=== PATIENT | female | born 1960 | race Caucasian/White ===

== ENCOUNTER 2023-08-09 15:46 | Outpatient (AMB) | payer OTHER, SELFPAY ==
--- NOTE | 2023-08-09 15:54 | MHC.PC.OV ---
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 Will order labs. Due for mammo, will order. 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 Refuses colonoscopy, will order cologuard. Due for bone density, will order. Pt has not seen a medical provider in 6-10 years. Pt has been a PPD smoker since age 17, will refer for low-dose lung CTs. starting HCTZ and losartan for her HTN. She will take her BP at home, write down values, and drop them off in the near future. I will also follow up with her in the future. [facility] Social History Housing: Apartment Patient Tobacco Use Status: Current everyday Tobacco user Cigarette Packs Per Day: 1 e-Cigarette/Vaping Use: Never Used Second Hand Smoke Exposure: Yes service: No Current occupational status: retired Cognitive needs: No Hearing needs: No Vision needs: No Questionnaire PHQ-9 Over the last 2 weeks, how often have you been bothered by any of the following problems? 1. Little interest or pleasure in doing things: not at all 2. Feeling down, depressed, or hopeless: not at all 3. Trouble falling or staying asleep, or sleeping too much: not at all 4. Feeling tired or having little energy: not at all 5. Poor appetite or overeating: not at all 6. Feeling bad about yourself - or that you are a failure or have let yourself or your family down: not at all 7. Trouble concentrating on things, such as reading the newspaper or watching television: not at all 8. Moving or speaking so slowly that other people could have noticed. Or the opposite - being so fidgety or restless that you have been moving around a lot more than usual: not at all 9. Thoughts that you would be better off or of hurting yourself in some way: not at all Total score: 0 Depression Screening Interpretation: Negative 26454 - PHQ-9 Billing: Yes Source: Developed by Drs. Jonathan Cordoba, Vicky Chaves, Denzel Thibodeaux and colleagues, with an educational bobbi from [employer]. Thrive Questionnaire Date Thrive assessed: 08/09/23 I am a: Patient What is your living situation today?: I have a steady place to live Within the past 12 months, did the food you bought not last and you didn't have the money to get more?: Never true Within the past 12 months, did you worry whether your food would run out before you got money to buy more?: Never true Do you have trouble paying for medicines?: No Do you have trouble getting transportation to medical appointments?: No Do you have trouble paying your heating and electricity bill?: No Do you have trouble taking care of your child, family member or friend?: No Do you have trouble with day-to-day activities such as bathing, preparing meals, shopping, managing finances, etc.?: No Are you currently unemployed and looking for a job?: No Are you interested in more education?: No Currently or been in a relationship where the following occur: no concerns reported AUDIT C Alcohol Use Questionnaire (AUDIT-C) 1. How often do you have a drink containing alcohol?: Monthly or less 2. How many drinks containing alcohol do you have on a typical day when you are drinking?: 1 or 2 3. How often do you have six or more drinks on one occasion?: Never Total Score: 1 Score Reviewed/Action Taken: Yes LINETTE-7 AMB Questionnaire LINETTE-7 Date LINETTE - 7 assessed: 08/09/23 Feeling nervous, anxious, or on edge: 0 = Not at all Not being able to stop or control worryin = Not at all Worrying too much about different things: 0 = Not at all Trouble relaxin = Not at all Being so restless that it is hard to sit still: 0 = Not at all Becoming easily annoyed or irritable: 0 = Not at all Feeling afraid as if something awful might happen: 0 = Not at all Total LINETTE-7 score (0-4 normal; 5-9 mild; 10-14 moderate; 15-21 severe): 0 Source: Developed by Drs. Jonathan Cordoba, Vicky Chaves, Denzel Thibodeaux and colleagues, with an educational bobbi from [employer]. LINETTE-7 Assessment Billing LINETTE-7 Assessment Tool: LINETTE-7 Assessment 39765 Review of Systems Const Denies chills and Denies fever(s) Eyes Denies blurry vision ENT Denies vertigo, Denies dizziness and Denies sore throat Card Denies chest pain at rest, Denies chest pain with activity, Denies diaphoresis, Denies dyspnea and Denies dyspnea on exertion Resp Denies cough, Denies dyspnea, Denies dyspnea on exertion and Denies wheezing GI Denies abdominal pain, Denies melena, Denies hematochezia, Denies constipation, Denies diarrhea and Denies loose stools Denies hematuria Musc Denies numbness and Denies tingling Skin/Breast Denies lesions Neuro Denies vertigo, Denies dizziness, Denies numbness and Denies tingling Psych Denies anxiety, Denies depression, Denies homicidal ideation, Denies suicidal ideation and Denies other (substance abuse) Aller/Immun Denies wheezing Physical exam (Primary Care) Vital Signs: Last Vital Signs Pulse 81 08/09/23 15:55 BP 160/100 H 08/09/23 15:55 Pulse Ox 95 08/09/23 15:55 Oxygen Delivery Method Room Air 08/09/23 15:55 BMI result Body Mass Index 26.2 Tobacco/Smoking Status: Tobacco use Status Tobacco use date assessed 08/09/23 08/09/23 15:58 Patient Tobacco Use Status Current everyday Tobacco 08/09/23 15:58 e-Cigarette/Vaping Use Never Used 08/09/23 15:58 PHQ-9: PHQ-9 Score PHQ-9: Total score 0 08/09/23 16:32 Depression Screening Interpretation: Negative Thrive Assessment: Date of Thrive Assessment Date Thrive assessed 08/09/23 08/09/23 16:32 Currently or been in a relationship where the following occur: no concerns reported Const General: cooperative Nutritional Appearance: well nourished Orientation/consciousness: patient oriented x3 HENMT Head: Yes normal to inspection, Yes normocephalic and Yes atraumatic Ears: TM's normal bilaterally Eyes General: appearance normal, both eyes and all related structures Alignment and Position: alignment normal and position normal Neck Neck: Yes normal visual inspection and Yes no lymphadenopathy Thyroid: Thyroid normal Resp Other: dim though moving air bilat Effort & Inspection: normal respiratory effort Cardio Rate: regular rate Rhythm: regular rhythm Heart sounds: S1 normal heart sound present, S2 normal heart sound present and no murmurs GI Palpation (GI): Soft to palpation and nontender Auscultation: normal bowel sounds Skin Rashes: no rashes Neuro General: patient oriented x3, moves all extremities, no focal motor deficits and deep tendon reflexes 2+ bilaterally Romberg Test: Negative Psych Appearance: grossly normal Mental Status: mental status grossly normal Speech and movement: Normal speech and movement present Affect: normal affect Attitude: cooperative Thought process: Normal thought process present Thought content: Normal thought content present Insight: Good insight present (Psych) Judgement: Good judgement present (Psych) Assessment and Plan Assessment & Plan (1) Physical exam: Code(s): Z00.00 - Encounter for general adult medical examination without abnormal findings Plan: Labs ordered (2) Postmenopausal: Code(s): Z78.0 - Asymptomatic menopausal state Plan: Labs and bone density ordered (3) HTN (hypertension): Code(s): I10 - Essential (primary) hypertension Plan: Pt will monitor BP at home, starting medication (4) Smoker: Code(s): F17.200 - Nicotine dependence, unspecified, uncomplicated Plan: Referred to thoracic Plan The patient agreed to the use of a medical laboratory assistant for this encounter. Scribed for JOSE Oneill by Yenifer Arias medical laboratory assistant, on 08/09/2023 at 16:25 EST. Orders: Orders Complete Blood Count Auto Diff Today Z00.00 - Encounter for general adult medical examination without abnormal findings UA CC w/rflx Micro + Cult Today Z00.00 - Encounter for general adult medical examination without abnormal findings Lipid Panel Today Z00.00 - Encounter for general adult medical examination without abnormal findings Vitamin D 25-OH Total Today Z78.0 - Asymptomatic menopausal state XR DEXA axial skeleton Today Z78.0 - Asymptomatic menopausal state MM screening mammo BI Today Z12.31 - Encounter for screening mammogram for malignant neoplasm of breast Comprehensive [place]. Panel Fast Today Z00.00 - Encounter for general adult medical examination without abnormal findings TSH reflex Free T4 Today Z00.00 - Encounter for general adult medical examination without abnormal findings Referrals Cologuard Test Z12.11 - Encounter for screening for malignant neoplasm of colon, Z12.12 - Encounter for screening for malignant neoplasm of rectum Thoracic Surgery Referral F17.200 - Nicotine dependence, unspecified, uncomplicated Medications: New hydrochlorothiazide 12.5 mg PO DAILY 90 days 90 caps 0RF losartan 25 mg PO DAILY 90 days 90 tabs 0RF Coding Level of Care Code New Pt Prev Care 40-64y(82728) Diagnoses Physical exam Z00.00 Postmenopausal Z78.0 HTN (hypertension) I10 Smoker F17.200 Additional Codes LINETTE-7 Assessment Billing - LINETTE-7 Assessment Tool: LINETTE-7 Assessment 72331 ([id number])
[2023-08-09 15:55] VITALS: BP 160/100; PULSE 81; O2SAT 95; BMI 26.2
[2023-08-09 16:45] VITALS: BP 170/108
== END 2023-08-09 17:04 | disposition home or self-care (01) ==
PROVIDERS: Visit Provider Nurse Practitioner Family
DX: Z00.00 Encounter for general adult medical examination without abnormal findings (principal); Z78.0 Asymptomatic menopausal state; I10 Essential (primary) hypertension; F17.210 Nicotine dependence, cigarettes, uncomplicated
CPT/HCPCS: 99386

== ENCOUNTER 2023-08-25 07:24 | Outpatient (REF) | payer OTHER, SELFPAY ==
[2023-08-25 11:00] LABS: MANUAL DIFF FLAG NO
[2023-08-25 11:18] LABS: Appearance Urine Cloudy; Basophils Absolute Auto 0.1 X10*3/uL (0.0-0.2); Basophils Percent Auto 1.1 % (0-2); Color Urine Yellow; Eosinophils Absolute Auto 0.5 X10*3/uL (0.0-0.4); Eosinophils Percent Auto 6.1 % (0-4); Glucose Urine UA Negative (Negative); Hematocrit 45.1 % (37.0-47.0); Hemoglobin 15.1 g/dl (12.0-16.0); Imm Gran Abs Auto 0.03 X10*3/uL (0.00-0.03); Imm Gran Pct Auto 0.3 % (0.0-0.4); Leukocyte Esterase Urine Large (3+) (Negative); Lymphocytes Absolute Auto 3.1 X10*3/uL (1.2-4.9); Lymphocytes Percent Auto 35.4 % (20-40); Mean Corpuscular HGB Conc 33.5 g/dl (31.0-35.0); Mean Corpuscular Hemoglobin 31.1 pg (27.0-33.0); Mean Corpuscular Volume 92.8 fL (80.0-98.0); Mean Platelet Volume 9.6 fL (9.4-12.3); Monocytes Absolute Auto 0.7 X10*3/uL (0.1-1.2); Monocytes Percent Auto 7.7 % (2-11); Neutrophils Absolute Auto 4.3 x10*3/uL (2.0-8.3); Neutrophils Percent Auto 49.4 % (45-73); Nitrite Urine Negative (Negative); Platelet Count 276 X10*3/uL (160-400); Red Blood Count 4.86 X10*6/uL (4.20-5.50); Red Cell Distribution Width 12.2 % (11.0-16.0); Specific Gravity - Urine 1.015 (1.005-1.025); UMIC TRIGGER UACC YES; Urine Blood Small (1+) (Negative); Urine Ketones Negative (Negative); Urine Protein Negative (Neg-Trace); White Blood Count 8.7 X10*3/uL (4.8-10.8)
[2023-08-25 11:32] LABS: Bacteria Urine 4+ (None Seen); Hyaline Casts Urine 0-2 /LPF (0-2); Squamous Epithelial Cell Urine >20 /HPF (0-2); UACC Culture Trigger YES; WBC Urine >50 /HPF (0-5)
[2023-08-25 12:00] LABS: Alanine Aminotransferase 13 U/L (0-31); Albumin Level 4.2 g/dL (3.5-5.0); Alkaline Phosphatase 97 U/L (39-117); Anion Gap 15 (12-20); Aspartate Amino Transferase 15 U/L (5-31); Bilirubin Total 0.5 mg/dL (0.0-1.0); Blood Urea Nitrogen 10 mg/dL (9-16); Calcium 9.4 mg/dL (8.4-10.2); Carbon Dioxide 25 mmol/L (22-29); Chloride 101 mmol/L (96-108); Cholesterol 217 mg/dL (<200); Estimated Glomerular Filt Rate > 60; Glucose Fasting 131 mg/dL (60-99); HDL Cholesterol 39 mg/dL (>40); LDL Cholesterol Calculated 144 mg/dL (<100); Potassium 3.9 mmol/L (3.3-5.1); Sodium 137 mmol/L (135-145); Total Protein 7.5 g/dL (6.5-8.0); Triglycerides 172 mg/dL (<150)
[2023-08-25 12:01] LABS: TSH reflex Free T4 0.74 uIU/mL (0.32-4.0); Vitamin D 25-OH Total 39.4 ng/mL (>30)
== END 2023-08-25 07:25 | disposition home or self-care (01) ==
LOC: HO.HMGCLDS 07:24
PROVIDERS: PCP Nurse Practitioner Family; Visit Provider Nurse Practitioner Family
DX: Z00.00 Encounter for general adult medical examination without abnormal findings (principal); Z78.0 Asymptomatic menopausal state
CPT/HCPCS: 36415; 80053; 80061; 81001; 82306; 84443; 85025; 87086

== ENCOUNTER 2023-09-13 13:31 | Outpatient (REF) | payer OTHER, SELFPAY ==
--- NOTE | ~2023-09-13 | MM_ITS ---
EXAMINATION: BONE DENSITOMETRY CLINICAL INDICATION: Asymptomatic menopausal state. COMPARISON: This is the patient's baseline examination. TECHNIQUE: Using a Jiff DXA System (software version: 13.1) manufactured by [employer], dual-energy x-ray absorptiometry was performed of the lumbar spine and left hip. The images are of good technical quality. Summary results are attached. FINDINGS: AP SPINE L1-L3 (excluding L4): The data of L1-L4 has been changed to exclude the L4 vertebral body, because degenerative sclerosis at this level may cause overestimation of lumbar spine density. BMD 0.981 g/cm2, Z-score -0.1, T-score -1.6, osteopenia. LEFT FEMUR, NECK: BMD 0.777 g/cm2, Z-score -0.5, T-score -1.9, osteopenia. LEFT FEMUR, TOTAL: BMD 0.824 g/cm2, Z-score -0.4, T-score -1.5, osteopenia. IDENTIFIED RISK FACTORS: Menopause. Thiazide. Current smoker. HISTORY OF FRACTURE: None listed. MEDICATIONS: None listed. MM/XR DEXA axial skeleton IMPRESSION: 1. DIAGNOSIS: Osteopenia based on the lowest T-score value of -1.9 in the femoral neck applying World Health Organization criteria. 2. 10-YEAR FRACTURE RISK PREDICTION, FRAX: Major osteoporotic fracture (clinical spine, forearm, hip or shoulder) 10.4%. Hip fracture 2.2%. 3. Treatment Recommendations: NOF guidelines recommend consideration for treatment in postmenopausal women and men age 50 and older presenting with the following: -A hip or vertebral (clinical or morphometric) fracture. -T-score less than or equal to -2.5 at the femoral neck or spine after appropriate evaluation to exclude secondary causes. -Low bone mass at the hip or spine and a 10-year fracture probability by FRAX of greater than or equal to 3% for hip fracture or greater than or equal to 20% for major osteoporotic fracture based on the [place] adapted WHO algorithm. 4. Other Recommendations: All treatment decisions require clinical judgment and consideration of individual patient factors, including patient preferences, comorbidities, previous drug use, risk factors not captured in the FRAX model (e.g. frailty, falls, vitamin D deficiency, increased bone turnover, interval significant decline in bone density) and possible under or overestimation of fracture risk by FRAX. Additional medical evaluation for secondary cause of low bone mineral density may be appropriate. FUTURE SCAN RECOMMENDATION: People with diagnosed cases of osteoporosis or at high risk for fracture should have regular bone mineral density tests. For patients eligible for Medicare, routine testing is allowed once every 2 years. The testing frequency can be increased to one year for patients who have rapidly progressing disease, those who are receiving or discontinuing medical therapy to restore bone mass, or have additional risk factors.
--- NOTE | ~2023-09-13 | MM_ITS ---
EXAMINATION: MM SCREENING DIGITAL BREAST TOMOSYNTHESIS, BILATERAL CLINICAL INFORMATION: Screening. Asymptomatic. COMPARISON: Mammography: There are no prior mammograms for comparison TECHNIQUE: Digital breast tomosynthesis is performed in both the craniocaudal and mediolateral oblique views along with computer-aided detection (CAD). Synthesized 2D images are generated from the tomosynthesis. FINDINGS: There are scattered areas of fibroglandular density (ACR BI-RADS breast composition Category b). There are no significant masses, abnormal calcifications, or other abnormalities. MM/MM tomosynthesis screening BI IMPRESSION: No mammographic evidence of malignancy. ASSESSMENT: BI-RADS BI-RADS 1 - Negative RECOMMENDATION: Routine annual mammography screening. 1 year F/U This examination should not preclude the clinical evaluation of a suspicious palpable abnormality. This patient's information was entered into a reminder system with a target due date for their next mammogram.
== END 2023-09-13 13:32 | disposition home or self-care (01) ==
LOC: HO.MAMMO 13:31
PROVIDERS: PCP Nurse Practitioner Family; Visit Provider Nurse Practitioner Family
DX: Z12.31 Encounter for screening mammogram for malignant neoplasm of breast (principal); Z13.820 Encounter for screening for osteoporosis; Z78.0 Asymptomatic menopausal state
CPT/HCPCS: 77063; 77067; 77080

== ENCOUNTER → 2023-09-13 14:00 | Outpatient (BNV) | payer OTHER, SELFPAY | PROVIDERS: PCP Nurse Practitioner Family; Visit Provider Radiology Diagnostic Radiology | DX: Z12.31 Encounter for screening mammogram for malignant neoplasm of breast (principal) | CPT/HCPCS: 77063; 77067 ==

== ENCOUNTER 2023-11-15 09:59 | Outpatient (AMB) | payer OTHER, SELFPAY ==
--- NOTE | 2023-11-15 10:09 | MHC.PC.OV ---
Vital Signs 11/15/23 10:13 Height 5 ft 2 in Weight 135 lb BMI 24.7 BP 130/82 Blood Pressure Location Rt brachial Position Sitting Pulse 66 Pulse Source Pulse Oximeter Pulse Oximetry (%) 99 Oxygen Delivery Method Room Air Intake Visit Reasons: 3 Months follow up Intake Note: Patient here to follow up on diabetes and HTN Allergies No Known Allergies [No Known Allergies*] Allergy (Unverified 11/15/23 10:13) Medication List - Last Reconciled 11/15/23 by JOSE Baird alcohol swabs (Alcohol Pads) 1 pad topically; aspirin (Adult Aspirin Regimen) 81 mg PO DAILY 90 days atorvastatin 20 mg PO BEDTIME calcium carbonate-vitamin D3 600 mg-12.5 mcg (500 unit) 1 cap PO BID 90 days hydrochlorothiazide 12.5 mg PO DAILY 90 days lancets (OneTouch Delica Plus Lancet) Test blood sugar twice a day losartan 25 mg PO DAILY 90 days OneTouch Ultra Test (blood sugar diagnostic) BID testing NS OneTouch Ultra2 Meter (blood-glucose meter) BID testing NS Tobacco use date assessed: 08/09/23 Dental Screening Dental Screen Date: 11/15/23 Did you have a dental visit in the last 12 months?: No Did you have a dental problem in the last 6 months where you did not have access to dental care?: No Was dental information given to patient?: Patient has dentist HPI 3 Months follow up HPI Details Pt is a diabetic, on an ARB and a statin. A1C in office today is 6.6. Due for microalbumin. Denies polyuria, polydipsia, and neuropathy. Pt denies any signs and symptoms of hypoglycemia and does know how to correct it. Micro hem noted previously. Pt does not have a hx of kidney stones. Will order UA, culture, cytology, and CT urogram. Pt is a smoker. She is not interested in the LDCTs due to smoking. Pt refuses vaccinations (pneumo and flu) [facility] Social History Housing: Apartment Patient Tobacco Use Status: Current everyday Tobacco user Cigarette Packs Per Day: 1 e-Cigarette/Vaping Use: Never Used Second Hand Smoke Exposure: Yes service: No Current occupational status: retired Cognitive needs: No Hearing needs: No Vision needs: No Questionnaire Thrive Questionnaire Date Thrive assessed: 08/09/23 I am a: Patient What is your living situation today?: I have a steady place to live Within the past 12 months, did the food you bought not last and you didn't have the money to get more?: I choose not to answer this question Within the past 12 months, did you worry whether your food would run out before you got money to buy more?: I choose not to answer this question AUDIT C Alcohol Use Questionnaire (AUDIT-C) 1. How often do you have a drink containing alcohol?: Monthly or less 2. How many drinks containing alcohol do you have on a typical day when you are drinking?: 1 or 2 3. How often do you have six or more drinks on one occasion?: Never Total Score: 1 Score Reviewed/Action Taken: Yes LINETTE-7 AMB Questionnaire LINETTE-7 Date LINETTE - 7 assessed: 08/09/23 Feeling nervous, anxious, or on edge: 0 = Not at all Not being able to stop or control worryin = Not at all Worrying too much about different things: 0 = Not at all Trouble relaxin = Not at all Being so restless that it is hard to sit still: 0 = Not at all Becoming easily annoyed or irritable: 0 = Not at all Feeling afraid as if something awful might happen: 0 = Not at all Total LINETTE-7 score (0-4 normal; 5-9 mild; 10-14 moderate; 15-21 severe): 0 Source: Developed by Drs. Jonathan Cordoba, Vicky Chaves, Denzel Thibodeaux and colleagues, with an educational bobbi from [employer]. Review of Systems Const Reports as per HPI Physical exam (Primary Care) Vital Signs: Last Vital Signs Pulse 66 11/15/23 10:13 BP 130/82 11/15/23 10:13 Pulse Ox 99 11/15/23 10:13 Oxygen Delivery Method Room Air 11/15/23 10:13 BMI result Body Mass Index 24.7 Tobacco/Smoking Status: Tobacco use Status Tobacco use date assessed 08/09/23 11/15/23 10:12 Patient Tobacco Use Status Current everyday Tobacco 11/15/23 10:12 e-Cigarette/Vaping Use Never Used 11/15/23 10:12 Thrive Assessment: Date of Thrive Assessment Date Thrive assessed 08/09/23 11/15/23 10:12 Const General: cooperative Orientation/consciousness: patient oriented x3 Resp Effort & Inspection: normal respiratory effort Auscultation: clear to auscultation bilaterally and diminished lung sounds Cardio Rate: regular rate Rhythm: regular rhythm Heart sounds: S1 normal heart sound present and S2 normal heart sound present Neuro General: patient oriented x3 Extrem Other: bilat feet: + sensation with use of monofilament. bilat big toenails are ingrown, without s/s of acute infection Psych Appearance: grossly normal Mental Status: mental status grossly normal Speech and movement: Normal speech and movement present Affect: normal affect Attitude: cooperative Thought process: Normal thought process present Thought content: Normal thought content present Insight: Good insight present (Psych) Judgement: Good judgement present (Psych) Results AMB Hemoglobin A1c AMB Hemoglobin A1c 6.6 % Last Edit by JUAN Araujo on 11/15/23 10:31 Results Reviewed Results Reviewed: Laboratory Last Values Hgb A1c (Clinic) 6.6 % (4.0-6.0) H 11/15/23 10:30 Assessment and Plan Assessment & Plan (1) Smoker: Code(s): F17.200 - Nicotine dependence, unspecified, uncomplicated Plan: CT urogram ordered (2) Microhematuria: Code(s): R31.29 - Other microscopic hematuria Plan: UA, culture, cytology, and CT urogram ordered (3) Newly diagnosed diabetes: Code(s): E11.9 - Type 2 diabetes mellitus without complications Plan: Labs ordered (4) Ingrown toenail of both feet: Code(s): L60.0 - Ingrowing nail Plan: Referred to podiatry Plan The patient agreed to the use of a medical record librarians teacher for this encounter. Scribed for LEONARDO Oenill-BC by Yenifer Arias medical record librarians teacher, on 11/15/2023 at 10:35 EST. Orders: Orders CT urogram Today F17.200 - Nicotine dependence, unspecified, uncomplicated, R31.29 - Other microscopic hematuria UA CC w/rflx Micro + Cult Today R31.29 - Other microscopic hematuria Urine Culture Today R31.29 - Other microscopic hematuria AMB Hemoglobin A1c Today E11.9 - Type 2 diabetes mellitus without complications Urine Cytology Today R31.29 - Other microscopic hematuria Complete Blood Count Auto Diff Today E11.9 - Type 2 diabetes mellitus without complications, F17.200 - Nicotine dependence, unspecified, uncomplicated, R31.29 - Other microscopic hematuria Comprehensive Met. Panel Today E11.9 - Type 2 diabetes mellitus without complications, F17.200 - Nicotine dependence, unspecified, uncomplicated, R31.29 - Other microscopic hematuria Lipid Panel Today E11.9 - Type 2 diabetes mellitus without complications, F17.200 - Nicotine dependence, unspecified, uncomplicated, R31.29 - Other microscopic hematuria Referrals Urology Referral F17.200 - Nicotine dependence, unspecified, uncomplicated, R31.29 - Other microscopic hematuria Podiatry Referral E11.9 - Type 2 diabetes mellitus without complications, L60.0 - Ingrowing nail Coding Level of Care Code Est Pt Level 3 (95557) Diagnoses Smoker F17.200 Microhematuria R31.29 Newly diagnosed diabetes E11.9 Ingrown toenail of both feet L60.0
[2023-11-15 10:13] VITALS: BP 130/82; PULSE 66; O2SAT 99; BMI 24.7
== END 2023-11-15 10:44 | disposition home or self-care (01) ==
PROVIDERS: PCP Nurse Practitioner Family; Visit Provider Nurse Practitioner Family
DX: F17.200 Nicotine dependence, unspecified, uncomplicated (principal); R31.29 Other microscopic hematuria; E11.9 Type 2 diabetes mellitus without complications; L60.0 Ingrowing nail
CPT/HCPCS: 83036; 99213

== ENCOUNTER 2023-12-27 09:51 | Outpatient (REF) | payer OTHER, SELFPAY ==
--- NOTE | ~2023-12-27 | CT_ITS ---
EXAMINATION: CT ABDOMEN AND PELVIS WITHOUT AND WITH CONTRAST CLINICAL INFORMATION: Smoking history COMPARISON: None available. TECHNIQUE: Noncontrast CT of the abdomen and pelvis is performed followed by split bolus contrast-enhanced images using 85 mL Omnipaque 350 contrast.? Postcontrast imaging is performed during the combined nephrogram and excretion phase. Sagittal and coronal reformatted images were obtained on the technologist's workstation for both the precontrast and postcontrast phases. This CT examination was performed using dose optimization techniques as appropriate, variously including the following: *Automated exposure control *Adjustment of mA and/or kV according to patient size (this includes techniques or standardized protocols for targeted exams where dose is matched to indication/reason for exam; i.e. extremities or head) *Use of iterative reconstruction technique DLP: 712 mGy-cm FINDINGS: LUNG BASES: The visualized lung bases are unremarkable. LIVER, GALLBLADDER, AND BILIARY TREE: The liver is normal in size, shape, and attenuation. No focal hepatic lesion or biliary ductal dilatation is present. The gallbladder is unremarkable with no evidence of radiopaque gallstones, gallbladder wall thickening, or obvious pericholecystic inflammatory changes. PANCREAS: Unremarkable. SPLEEN: Unremarkable. ADRENAL GLANDS: Unremarkable. KIDNEYS AND URETERS: The kidneys are normal in size, shape, and attenuation. 3 mm stone in the lower pole of the left kidney. 1 cm cyst in the lower pole of the right kidney. No imaging follow-up recommended. No hydronephrosis. The collecting systems are normal. The left ureter is well opacified with excreted contrast and is normal-appearing. Right ureter not optimally opacified with excreted contrast and not as well evaluated. BLADDER: Unremarkable. GASTROINTESTINAL TRACT: The small and large bowel are unremarkable. The appendix is unremarkable. ABDOMINAL WALL: Small umbilical hernia containing fat. LYMPH NODES: Normal. VASCULAR: Atherosclerotic disease. PELVIC VISCERA: Unremarkable. OSSEUS STRUCTURES: Degenerative disc disease at L5-S1. CT/CT urogram IMPRESSION: Small left renal stone.
[2023-12-27] MEDS: iohexoL 350 MG/ML 100 ML INFUS..BTL 85 ML IV (10:38)
[2023-12-28 08:39] LABS: Creatinine POC 0.8 mg/dL (0.5-1.4); GFR POC > 60
== END 2023-12-27 09:52 | disposition home or self-care (01) ==
LOC: HO.CT 09:51
PROVIDERS: PCP Nurse Practitioner Family; Visit Provider Nurse Practitioner Family
DX: R31.29 Other microscopic hematuria (principal); F17.200 Nicotine dependence, unspecified, uncomplicated
CPT/HCPCS: 74178; 82565; Q9967

== ENCOUNTER 2024-02-10 13:53 | Outpatient (AMB) | payer OTHER, SELFPAY ==
--- NOTE | 2024-02-10 14:20 | MHC.OFFVIS ---
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: No Accompanied by: Self / Same As Patient Allergies No Known Allergies [No Known Allergies*] Allergy (Unverified 02/12/24 16:24) Medication List - Last Reconciled 02/12/24 by JOSE Iglesias alcohol swabs (Alcohol Pads) 1 pad topically; aspirin (Adult Aspirin Regimen) 81 mg PO DAILY 90 days atorvastatin 20 mg PO BEDTIME calcium carbonate-vitamin D3 600 mg-12.5 mcg (500 unit) 1 cap PO BID 90 days hydrochlorothiazide 12.5 mg PO DAILY 90 days lancets (OneTouch Delica Plus Lancet) Test blood sugar twice a day losartan 25 mg PO DAILY 90 days meclizine 25 mg PO BID PRN 15 days OneTouch Ultra Test (blood sugar diagnostic) BID testing NS OneTouch Ultra2 Meter (blood-glucose meter) BID testing NS HPI HPI Comments History of Present Illness Details Chaparrita is a very pleasant 63-year-old female patient of Dr. Lewis. She has a past medical history of hypertension and prediabetes. She presents to the office today as a new patient for microscopic hematuria. In discussion with the patient today she reports to be doing and feeling well. She reports having followed up with her PCP at which time microscopic hematuria was noted in urinalysis and recommendations were made for urology referral for further assessment evaluation. She reports smoking approximately half a pack per day for over 45 years. In review of patient's chart it appears CT urogram was ordered and performed. These results were reviewed with the patient today. The kidneys are normal in size, shape, and attenuation. 3 mm stone in the lower pole of the left kidney. 1 cm cyst in the lower pole of the right kidney. No imaging follow-up per radiology report. No hydronephrosis noted bilaterally. The bladder is unremarkable. When asked she does report noting increasing urinary frequency over the last 2-3 months she otherwise denies any bothersome urinary issues or concerns. In office urinalysis results reviewed with the patient today. 3+ leukocytes negative nitrates 2+ microscopic blood. She otherwise denies urinary urgency, incontinence, nocturia, hematuria, dysuria, foul smelling urine, changes to urinary stream, flank pain, fever, and or chills. She is happy with her current voiding parameters. Discussed at length potential causes of microscopic hematuria in the setting of nicotine dependence and nephrolithiasis noted on CT urogram. When asked she denies any previous history and or surgical intervention for nephrolithiasis. She otherwise offers no other issues or concerns at this time. [facility] Social History Housing: Apartment Patient Tobacco Use Status: Current everyday Tobacco user Cigarette Packs Per Day: 1 e-Cigarette/Vaping Use: Never Used Second Hand Smoke Exposure: Yes service: No Current occupational status: retired Cognitive needs: No Hearing needs: No Vision needs: No Review of Systems Const Reports no additional complaints Eyes Reports no additional complaints ENT Reports no additional complaints Card Reports as per HPI Resp Reports no additional complaints GI Reports no additional complaints Reports as per HPI Musc Reports no additional complaints Neuro Reports no additional complaints Psych Reports no additional complaints Endo Reports as per HPI Louis/Lymph Reports no additional complaints Aller/Immun Reports no additional complaints Physical Exam Const General: cooperative, healthy appearing, comfortable, no acute distress, well developed, alert and awake Orientation/consciousness: patient oriented x3 Limitations: no limitations HEENT Head: Yes normal to inspection, Yes normocephalic and Yes atraumatic Ears: hearing grossly normal bilaterally Eyes General: appearance normal, both eyes and all related structures Neck Neck: Yes normal visual inspection and Yes trachea midline Chest Chest palpation & inspection: normal inspection of the chest Resp Effort & Inspection: normal respiratory effort and able to speak in complete sentences Cardio Rate: regular rate GI Inspection: Yes normal to inspection General: Yes no CVA tenderness Back/Spine/Pelvis Back: no CVA tenderness Skin General skin exam: no rashes or lesions noted Neuro General: patient oriented x3 Extrem General: Yes normal to inspection Psych Appearance: grossly normal and well kempt Mental Status: mental status grossly normal Speech and movement: Normal speech and movement present and Clear speech present Affect: normal affect Attitude: cooperative Thought process: Normal thought process present Thought content: Normal thought content present Insight: Fair insight present (Psych) Judgement: Fair judgement present (Psych) Results AMB Urinalysis, Automated UA Leukoctes 500 Ye/uL Last Edit by Madiha Vyas on 02/10/24 14:50 UA Nitrite Negative Last Edit by Madiha Vyas on 02/10/24 14:50 UA Urobilinogen 0.2 mg/dL Last Edit by Paperfoldkaren Vyas on 02/10/24 14:50 UA Protein 15 mg/dL Last Edit by Madiha Vyas on 02/10/24 14:50 UA pH 6.0 Last Edit by Madiha Vyas on 02/10/24 14:50 UA Blood 80 Olivier/uL Last Edit by Madiha Vyas on 02/10/24 14:50 UA Specific [place] 1.015 Last Edit by Observe Medicalsheryl Vyas on 02/10/24 14:50 UA Ketone Negative Last Edit by Observe Medicalsheryl Smart Destinationsvince on 02/10/24 14:50 UA Bilirubin 0 mg/dL Last Edit by Madiha Vyas on 02/10/24 14:50 UA Glucose 0 mg/dL Last Edit by Madiha Vyas on 02/10/24 14:50 Results Reviewed Results Reviewed: Laboratory Last Values Urine pH (Auto) 6.0 02/10/24 14:28 Specific [place] (Auto) 1.015 02/10/24 14:28 Urine Protein (Auto) 15 mg/dL 02/10/24 14:28 Glucose (UA)(Auto) 0 mg/dL 02/10/24 14:28 Urine Ketones (Auto) Negative 02/10/24 14:28 Urine Blood (Auto) 80 Olivier/uL 02/10/24 14:28 Urine Nitrite (Auto) Negative 02/10/24 14:28 Urine Bilirubin (Auto) 0 mg/dL 02/10/24 14:28 Urine Urobilinogen (Auto) 0.2 mg/dL 02/10/24 14:28 Leukocyte Esterase (Auto) 500 Ye/uL 02/10/24 14:28 Date of Service: 12/27/23 Procedure(s): CT urogram EXAMINATION: CT ABDOMEN AND PELVIS WITHOUT AND WITH CONTRAST FINDINGS: LUNG BASES: The visualized lung bases are unremarkable. LIVER, GALLBLADDER, AND BILIARY TREE: The liver is normal in size, shape, and attenuation. No focal hepatic lesion or biliary ductal dilatation is present. The gallbladder is unremarkable with no evidence of radiopaque gallstones, gallbladder wall thickening, or obvious pericholecystic inflammatory changes. PANCREAS: Unremarkable. SPLEEN: Unremarkable. ADRENAL GLANDS: Unremarkable. KIDNEYS AND URETERS: The kidneys are normal in size, shape, and attenuation. 3 mm stone in the lower pole of the left kidney. 1 cm cyst in the lower pole of the right kidney. No imaging follow-up recommended. No hydronephrosis. The collecting systems are normal. The left ureter is well opacified with excreted contrast and is normal-appearing. Right ureter not optimally opacified with excreted contrast and not as well evaluated. BLADDER: Unremarkable. GASTROINTESTINAL TRACT: The small and large bowel are unremarkable. The appendix is unremarkable. ABDOMINAL WALL: Small umbilical hernia containing fat. LYMPH NODES: Normal. VASCULAR: Atherosclerotic disease. PELVIC VISCERA: Unremarkable. OSSEUS STRUCTURES: Degenerative disc disease at L5-S1. IMPRESSION: Small left renal stone Assessment & Plan Assessment & Plan (1) Microhematuria: Code(s): R31.29 - Other microscopic hematuria (2) Smoker: Code(s): F17.200 - Nicotine dependence, unspecified, uncomplicated (3) Nephrolithiasis: Code(s): N20.0 - Calculus of kidney Plan In office urinalysis results reviewed with the patient today; as noted above; will send for urine cytology and urine culture. Recent CT results reviewed with the patient today; as noted above. Discussed at length potential causes of microscopic hematuria in the setting of nicotine dependence as well as nephrolithiasis. Discussed further treatment options with surveillance monitoring versus further workup with in office cystoscopy. Discussed at length importance of drinking plenty of water daily. Discussed adding 1 oz of lemon juice to water daily. She currently denies any bothersome urinary issues. Discussed, educated, and stressed the importance of limiting/quitting nicotine dependence for overall health and well-being. Follow-up in office cystoscopy; or sooner with any issues, concerns, and or questions. Orders: Orders Urine Cytology 02/11/24 R31.29 - Other microscopic hematuria Urine Culture 02/10/24 R31.29 - Other microscopic hematuria AMB Urinalysis Automated 02/10/24 R31.29 - Other microscopic hematuria, Z13.9 - Encounter for screening, unspecified Patient Instructions: The patient had an opportunity to ask questions regarding the treatment plan. All questions were answered. Physical exam, labs, and imaging were discussed and reviewed in detail. As well as risks, benefits, and discussion of treatment choices. No major barriers to understanding were identified. The patient expressed understanding and agreement with the above treatment plan. The patient was made aware they should contact our office by phone for worsening of their current condition, the appearance of new symptoms, or with any questions or concerns. Compliance is encouraged with any medications and follow up testing that is ordered. It is a privilege to be allowed the opportunity to participate in? your urological care.? Again, if you have any questions or concerns If you have any questions or concerns please do not hesitate to contact me. The office is [phone]. This note is constructed using voice recognition software. 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 Yours sincerely, JOSE Iglesias Coding Level of Care Code New Pt Level 4 (73485) Diagnoses Microhematuria R31.29 Smoker F17.200 Nephrolithiasis N20.0 Time Spent (min) 35
== END 2024-02-10 15:02 | disposition home or self-care (01) ==
PROVIDERS: PCP Nurse Practitioner Family; Visit Provider Nurse Practitioner Family
DX: R31.29 Other microscopic hematuria (principal); F17.200 Nicotine dependence, unspecified, uncomplicated; N20.0 Calculus of kidney
CPT/HCPCS: 99204

== ENCOUNTER 2024-02-10 13:53 | Outpatient (REF) | payer OTHER, SELFPAY ==
[2024-02-11 07:13] LABS: Urine Cytology See Pathology rpt
== END 2024-02-10 13:54 | disposition home or self-care (01) ==
LOC: HO.LNP 13:53
PROVIDERS: PCP Nurse Practitioner Family; Visit Provider Nurse Practitioner Family
DX: R31.29 Other microscopic hematuria (principal)
CPT/HCPCS: 81003; 87086; 88112; 99202

== ENCOUNTER 2024-03-02 08:28 | Outpatient (REF) | payer OTHER, SELFPAY ==
[2024-03-02 10:38] LABS: MANUAL DIFF FLAG NO
[2024-03-02 10:50] LABS: Urine Cytology See Pathology rpt
[2024-03-02 10:55] LABS: Basophils Absolute Auto 0.1 X10*3/uL (0.0-0.2); Eosinophils Absolute Auto 0.8 X10*3/uL (0.0-0.4); Eosinophils Percent Auto 8.2 % (0-4); Hematocrit 43.7 % (37.0-47.0); Hemoglobin 15.2 g/dl (12.0-16.0); Imm Gran Abs Auto 0.03 X10*3/uL (0.00-0.03); Imm Gran Pct Auto 0.3 % (0.0-0.4); Lymphocytes Percent Auto 41.2 % (20-40); Mean Corpuscular HGB Conc 34.8 g/dl (31.0-35.0); Mean Corpuscular Hemoglobin 31.7 pg (27.0-33.0); Mean Corpuscular Volume 91.2 fL (80.0-98.0); Mean Platelet Volume 9.8 fL (9.4-12.3); Monocytes Absolute Auto 0.6 X10*3/uL (0.1-1.2); Monocytes Percent Auto 6.5 % (2-11); Neutrophils Absolute Auto 4.1 x10*3/uL (2.0-8.3); Neutrophils Percent Auto 42.8 % (45-73); Platelet Count 275 X10*3/uL (160-400); Red Blood Count 4.79 X10*6/uL (4.20-5.50); Red Cell Distribution Width 12.6 % (11.0-16.0); White Blood Count 9.7 X10*3/uL (4.8-10.8)
[2024-03-02 10:59] LABS: Appearance Urine Cloudy; Color Urine Yellow; Glucose Urine UA Negative (Negative); Leukocyte Esterase Urine Large (3+) (Negative); Nitrite Urine Negative (Negative); PH 6.5 (5.0-9.0); UMIC TRIGGER UACC YES; Urine Blood Trace (Negative); Urine Ketones Negative (Negative); Urine Protein Negative (Neg-Trace)
[2024-03-02 11:07] LABS: Bacteria Urine 3+ (None Seen); Hyaline Casts Urine 0-2 /LPF (0-2); RBC Urine 0-2 /HPF (0-2); UACC Culture Trigger YES; WBC Urine >50 /HPF (0-5)
[2024-03-02 11:54] LABS: Alanine Aminotransferase 17 U/L (0-31); Albumin Level 4.3 g/dL (3.5-5.0); Alkaline Phosphatase 90 U/L (39-117); Anion Gap 13 (12-20); Aspartate Amino Transferase 16 U/L (5-31); Bilirubin Total 0.4 mg/dL (0.0-1.0); Blood Urea Nitrogen 13 mg/dL (9-16); Calcium 10.5 mg/dL (8.4-10.2); Carbon Dioxide 27 mmol/L (22-29); Chloride 103 mmol/L (96-108); Cholesterol 131 mg/dL (<200); Estimated Glomerular Filt Rate 58; Glucose Random 112 mg/dL (60-115); HDL Cholesterol 42 mg/dL (>40); LDL Cholesterol Calculated 61 mg/dL (<100); Potassium 4.9 mmol/L (3.3-5.1); Sodium 138 mmol/L (135-145); Total Protein 7.7 g/dL (6.5-8.0); Triglycerides 142 mg/dL (<150)
== END 2024-03-02 08:29 | disposition home or self-care (01) ==
LOC: HO.HMGCLDS 08:28
PROVIDERS: PCP Nurse Practitioner Family; Visit Provider Nurse Practitioner Family
DX: R31.29 Other microscopic hematuria (principal); F17.200 Nicotine dependence, unspecified, uncomplicated; E11.9 Type 2 diabetes mellitus without complications
CPT/HCPCS: 36415; 80053; 80061; 81001; 85025; 87086; 88112

== ENCOUNTER 2024-03-08 08:27 | Outpatient (AMB) | payer OTHER, SELFPAY ==
--- NOTE | 2024-03-08 08:36 | A.OFFPC_ITS ---
Vital Signs 03/08/24 08:38 Height 5 ft 2 in Weight 139 lb BMI 25.4 BP 120/80 Blood Pressure Location Rt brachial Position Sitting Pulse 74 Pulse Source Pulse Oximeter Pulse Oximetry (%) 99 Oxygen Delivery Method Room Air Intake Visit Reasons: 4 Months follow up Intake Note: Patient here for diabetes f/u. pt is newly diagnosed and states her sugars have been in the 120's. Allergies No Known Allergies [No Known Allergies*] Allergy (Unverified 03/08/24 08:40) Medication List - Last Reconciled 03/08/24 by JOSE Baird alcohol swabs (Alcohol Pads) 1 pad topically; aspirin (Adult Aspirin Regimen) 81 mg PO DAILY 90 days atorvastatin 20 mg PO BEDTIME calcium carbonate-vitamin D3 600 mg-12.5 mcg (500 unit) 1 cap PO BID 90 days hydrochlorothiazide 12.5 mg PO DAILY 90 days lancets (OneTouch Delica Plus Lancet) Test blood sugar twice a day losartan 25 mg PO DAILY 90 days meclizine 25 mg PO BID PRN 15 days OneTouch Ultra Test (blood sugar diagnostic) BID testing NS OneTouch Ultra2 Meter (blood-glucose meter) BID testing NS Tobacco use date assessed: 03/08/24 Dental Screening Dental Screen Date: 03/08/24 Did you have a dental visit in the last 12 months?: No Did you have a dental problem in the last 6 months where you did not have access to dental care?: No Was dental information given to patient?: No HPI 4 Months follow up HPI Details Pt is a diabetic, on an ARB and a statin. A1C in office today is 6.7. Due for microalbumin, will order. Denies polyuria, polydipsia, and neuropathy. Pt denies any signs and symptoms of hypoglycemia and does know how to correct it. Pt reports that her blood sugar has been ranging from 120s-180s. Will start jardiance 10mg. Eye exam is up to date. Pt does not want any pneumonia vaccines currently. [facility] Social History Housing: Apartment Patient Tobacco Use Status: Current everyday Tobacco user Cigarette Packs Per Day: 1 e-Cigarette/Vaping Use: Never Used Second Hand Smoke Exposure: Yes service: No Current occupational status: retired Cognitive needs: No Hearing needs: No Vision needs: No Questionnaire PHQ-9 Over the last 2 weeks, how often have you been bothered by any of the following problems? 25317 - PHQ-9 Billing: Patient declined-do not bill Source: Developed by Drs. Jonathan Cordoba, Vicky Chaves, Denzel Thibodeaux and colleagues, with an educational bobbi from [email or web address]. Thrive Questionnaire Date Thrive assessed: 08/09/23 Currently or been in a relationship where the following occur: I choose not to answer this question THRIVE Score: 0 AUDIT C Alcohol Use Questionnaire (AUDIT-C) 1. How often do you have a drink containing alcohol?: Never 3. How often do you have six or more drinks on one occasion?: Never Total Score: 0 Score Reviewed/Action Taken: No LINETTE-7 AMB Questionnaire LINETTE-7 Date LINETTE - 7 assessed: 08/09/23 Source: Developed by Drs. Jonathan Cordoba, Vicky Chaves, Denzel Thibodeaux and colleagues, with an educational bobbi from [email or web address]. LINETTE-7 Assessment Billing LINETTE-7 Assessment Tool: pt declined-do not bill Review of Systems Const Reports as per HPI Physical exam (Primary Care) Vital Signs: Last Vital Signs Pulse 74 03/08/24 08:38 BP 120/80 03/08/24 08:38 Pulse Ox 99 03/08/24 08:38 Oxygen Delivery Method Room Air 03/08/24 08:38 BMI result Body Mass Index 25.4 Tobacco/Smoking Status: Tobacco use Status Tobacco use date assessed 03/08/24 03/08/24 08:42 Patient Tobacco Use Status Current everyday Tobacco 03/08/24 08:37 e-Cigarette/Vaping Use Never Used 03/08/24 08:37 Thrive Assessment: Date of Thrive Assessment Date Thrive assessed 08/09/23 03/08/24 08:37 Currently or been in a relationship where the following occur: I choose not to answer this question Const General: cooperative Orientation/consciousness: patient oriented x3 Resp Other: dim bilat Effort & Inspection: normal respiratory effort Auscultation: clear to auscultation bilaterally Cardio Rate: regular rate Rhythm: regular rhythm Heart sounds: S1 normal heart sound present and S2 normal heart sound present Neuro General: patient oriented x3 Extrem Other: bilat feet: + sensation with use of monofilament, feet intact Psych Appearance: grossly normal Mental Status: mental status grossly normal Speech and movement: Normal speech and movement present Affect: normal affect Attitude: cooperative Thought process: Normal thought process present Thought content: Normal thought content present Insight: Good insight present (Psych) Judgement: Good judgement present (Psych) Results AMB Hemoglobin A1c AMB Hemoglobin A1c 6.7 % Last Edit by JUAN Araujo on 03/08/24 09 :09 Results Reviewed Results Reviewed: Laboratory Last Values Hgb A1c (Clinic) 6.7 % (4.0-6.0) H 03/08/24 09:08 Assessment and Plan Assessment & Plan (1) Diabetes: Code(s): E11.9 - Type 2 diabetes mellitus without complications Plan: A1C done in office, microalbumin ordered Plan The patient agreed to the use of a medical hospital sales for this encounter. Scribed for JOSE Oneill by [facility], on 03/08/2024 at 08:55 EST. Orders: Orders Microalbumin, Random (w Creat) Today E11.9 - Type 2 diabetes mellitus without complications AMB Hemoglobin A1c Today E11.9 - Type 2 diabetes mellitus without complications Medications: New empagliflozin (Jardiance) 10 mg PO DAILY 30 tabs 3RF Coding Level of Care Code Est Pt Level 3 (78777) Diagnoses Diabetes E11.9
[2024-03-08 08:38] VITALS: BP 120/80; PULSE 74; O2SAT 99; BMI 25.4
== END 2024-03-08 09:08 | disposition home or self-care (01) ==
PROVIDERS: PCP Nurse Practitioner Family; Visit Provider Nurse Practitioner Family
DX: E11.9 Type 2 diabetes mellitus without complications (principal)
CPT/HCPCS: 83036; 99213

== ENCOUNTER 2024-03-29 09:26 | Outpatient (AMB) | payer OTHER, SELFPAY ==
--- NOTE | 2024-03-29 09:49 | A.OFFVIS_ITS ---
Intake Visit Reasons: cysto Intake Note: Patient presents today for a CYSTOSCOPY Procedure: Meds: None Allergies to Antibiotic: No Known Allergies Blood Thinner: Aspirin Urinalysis test clear for Cysto? YES Disposable Uro-G HD Cystoscope Cannula: Lot: [id number] Exp: 11/22/2026 High School Math Teacher Required: No Paper Core Machine Operator: Paper Core Machine Operator Present Accompanied by: Daughter Allergies No Known Allergies [No Known Allergies*] Allergy (Unverified 03/08/24 08:40) Medication List - Last Reconciled 03/29/24 by Merline Chacon MD alcohol swabs (Alcohol Pads) 1 pad topically; aspirin (Adult Aspirin Regimen) 81 mg PO DAILY 90 days atorvastatin 20 mg PO BEDTIME calcium carbonate-vitamin D3 600 mg-12.5 mcg (500 unit) 1 cap PO BID 90 days empagliflozin (Jardiance) 10 mg PO DAILY hydrochlorothiazide 12.5 mg PO DAILY 90 days lancets (OneTouch Delica Plus Lancet) Test blood sugar twice a day losartan 25 mg PO DAILY 90 days meclizine 25 mg PO BID PRN 15 days mirabegron ER (Myrbetriq) 25 mg PO DAILY OneTouch Ultra Test (blood sugar diagnostic) BID testing NS OneTouch Ultra2 Meter (blood-glucose meter) BID testing NS HPI Comments Details: 03/29/2024--Chaparrita is here for office cystoscopy. She states that she has urinary urgency. denies gross hematuria. discussed importance of smoking cessation. Reviewed CT urogram--3 mm stone in the lower pole of the left kidney. 1 cm cyst in the lower pole of the right kidney. Urine cytology- 03/06/24- Negative Cystoscopy findings: Bladder wall thickening, no suspicious bladder lesions visualized plan discussed-Myrbetriq 25 mg daily, fu TELEPHONER in 3 months Review of chart: 02/09/34--Chaparrita is a very pleasant 63-year-old female patient of Dr. Lewis. She has a past medical history of hypertension and prediabetes. She presents to the office today as a new patient for microscopic hematuria. In discussion with the patient today she reports to be doing and feeling well. She reports having followed up with her PCP at which time microscopic hematuria was noted in urinalysis and recommendations were made for urology referral for further assessment evaluation. She reports smoking approximately half a pack per day for over 45 years. In review of patient's chart it appears CT urogram was ordered and performed. These results were reviewed with the patient today. The kidneys are normal in size, shape, and attenuation. 3 mm stone in the lower pole of the left kidney. 1 cm cyst in the lower pole of the right kidney. No imaging follow-up per radiology report. No hydronephrosis noted bilaterally. The bladder is unremarkable. When asked she does report noting increasing urinary frequency over the last 2-3 months she otherwise denies any bothersome urinary issues or concerns. In office urinalysis results reviewed with the patient today. 3+ leukocytes negative nitrates 2+ microscopic blood. She otherwise denies urinary urgency, incontinence, nocturia, hematuria, dysuria, foul smelling urine, changes to urinary stream, flank pain, fever, and or chills. She is happy with her current voiding parameters. Discussed at length potential causes of microscopic hematuria in the setting of nicotine dependence and nephrolithiasis noted on CT urogram. When asked she denies any previous history and or surgical intervention for nephrolithiasis. She otherwise offers no other issues or concerns at this time. 03/29/24--Myrbetriq 25 mg daily, fu TELEPHONER in 3 months PFSH Surgical History Hx of cystoscopy Social History Housing: Apartment Patient Tobacco Use Status: Current everyday Tobacco user Cigarette Packs Per Day: 1 e-Cigarette/Vaping Use: Never Used Second Hand Smoke Exposure: Yes service: No Current occupational status: retired Cognitive needs: No Hearing needs: No Vision needs: No Review of Systems Const All systems reviewed & are unremarkable except as noted in HPI and below Reports no additional complaints Eyes Reports no additional complaints ENT Reports no additional complaints Card Reports no additional complaints Resp Reports no additional complaints GI Reports no additional complaints Reports as per HPI Musc Reports no additional complaints Skin/Breast Reports system reviewed and no additional complaints, except as documented Neuro Reports no additional complaints Psych Reports no additional complaints Endo Reports no additional complaints Louis/Lymph Reports no additional complaints Aller/Immun Reports no additional complaints Office Procedures Cystoscopy Consent Discussed risk and benefit or proposed procedure with the patient. Information consent for procedure given to the patient. Discussed technical aspects, risks, benefits and alternatives in full. Addressed all of the patient's questions and concerns regarding the procedure. The patient demonstrated knowledge and understanding. They wish to proceed with this procedure. Preparation The patient was prepped in the usual manner. A aircraft delivery checker was present and in the room. Genitalia was prepped with betadine solution in a sterile manner. Lidocaine Jelly 2% was placed into the urethra and 16Fr flexible Olympus cystoscope was inserted into the meatus after adequate lubrication. Procedure Time out per protocol performed. Bladder Inspection Bladder Inspection: The bladder was inspected in its entirety with utilization retroflexion displaying: Tumor(s): no suspicious lesions visualized Trabeculation: present, Moderate Mucosal Erthema: N/A Orifices: normal shape and position Urethra: normal Cystoscopy findings: Bladder wall thickening, no suspicious bladder lesions visualized [id number] DISPOSABLE SCOPE URO-G FLEXIBLE SCOPE Procedure code (CPT) selection complete Office Meds lidocaine HCl 2 % mucosal jelly in applicator Performing Provider: Merline Chacon MD [facility] Administered by: Fran Bacon LPN on 03/29/24 09:50 Dose Route Admin Location Dispensed Lot Number Expiration Date [facility] Battery Hand 10 mL intra-urethral 20 mL naproxen 500 mg tablet Performing Provider: Merline Chacon MD Performing Location: [facility] Administered by: Fran Bacon LPN on 03/29/24 09:50 Dose Route Admin Location Dispensed Lot Number Expiration Date [place] Battery Hand 500 mg PO 1 tab ciprofloxacin HCl 500 mg tablet Performing Provider: Merline Chacon MD Performing [facility] Administered by: Fran Bacon LPN on 03/29/24 09:50 Dose Route Admin Location Dispensed Lot Number Expiration Date [facility] Battery Hand 500 mg PO 1 tab Results AMB Urinalysis, Automated UA Leukoctes 0 Ye/uL Last Edit by YARITZA Camargo on 03/29/24 09:54 UA Nitrite Negative Last Edit by Bandar Tompkins [facility] on 03/29/24 09:54 UA Urobilinogen 0.2 mg/dL Last Edit by Bandar Tompkins A on 03/29/24 09:5 4 UA Protein 0 mg/dL Last Edit by Bandar Tompkins A on 03/29/24 09:54 UA pH 6.5 Last Edit by Bandar Tompkins, A on 03/29/24 09:54 UA Blood 10 Olivier/uL Last Edit by Bandar Tompkins [facility] on 03/29/24 09:54 UA Specific [place] 1.010 Last Edit by Bandar Tompkins [facility] on 03/29/24 09: 54 UA Ketone Negative Last Edit by Bandar Tompkins [facility] on 03/29/24 09:54 UA Bilirubin 0 mg/dL Last Edit by Bandar Tompkins [place] on 03/29/24 09:54 UA Glucose 0 mg/dL Last Edit by Bandar Tompkins [facility] on 03/29/24 09:54 Results Reviewed Results Reviewed: Laboratory Last Values Urine pH (Auto) 6.5 03/29/24 09:51 Specific [place] (Auto) 1.010 03/29/24 09:51 Urine Protein (Auto) 0 mg/dL 03/29/24 09:51 Glucose (UA)(Auto) 0 mg/dL 03/29/24 09:51 Urine Ketones (Auto) Negative 03/29/24 09:51 Urine Blood (Auto) 10 Olivier/uL 03/29/24 09:51 Urine Nitrite (Auto) Negative 03/29/24 09:51 Urine Bilirubin (Auto) 0 mg/dL 03/29/24 09:51 Urine Urobilinogen (Auto) 0.2 mg/dL 03/29/24 09:51 Leukocyte Esterase (Auto) 0 Ye/uL 03/29/24 09:51 Collected: 03/02/24 Location: [facility] Received: 03/06/24 Diagnosis Urine: Negative for high-grade urothelial carcinoma. COMMENT: Examination of a monolayer preparation slide shows many benign superficial squamous cells with bacteria, scattered benign urothelial cells, scattered acute inflammatory cells and few red blood cells. Clinical History Microscopic hematuria Material Received Urine Gross Description Received are 55 cc of cloudy yellow fluid from which a ThinPrep slide is prepared. Date of Service: 12/27/23 EXAMINATION: CT ABDOMEN AND PELVIS WITHOUT AND WITH CONTRAST CLINICAL INFORMATION: Smoking history COMPARISON: None available. TECHNIQUE: Noncontrast CT of the abdomen and pelvis is performed followed by split bolus contrast-enhanced images using 85 mL Omnipaque 350 contrast.? Postcontrast imaging is performed during the combined nephrogram and excretion phase. Sagittal and coronal reformatted images were obtained on the technologist's workstation for both the precontrast and postcontrast phases. This CT examination was performed using dose optimization techniques as appropriate, variously including the following: *Automated exposure control *Adjustment of mA and/or kV according to patient size (this includes techniques or standardized protocols for targeted exams where dose is matched to indication/reason for exam; i.e. extremities or head) *Use of iterative reconstruction technique DLP: 712 mGy-cm FINDINGS: LUNG BASES: The visualized lung bases are unremarkable. LIVER, GALLBLADDER, AND BILIARY TREE: The liver is normal in size, shape, and attenuation. No focal hepatic lesion or biliary ductal dilatation is present. The gallbladder is unremarkable with no evidence of radiopaque gallstones, gallbladder wall thickening, or obvious pericholecystic inflammatory changes. PANCREAS: Unremarkable. SPLEEN: Unremarkable. ADRENAL GLANDS: Unremarkable. KIDNEYS AND URETERS: The kidneys are normal in size, shape, and attenuation. 3 mm stone in the lower pole of the left kidney. 1 cm cyst in the lower pole of the right kidney. No imaging follow-up recommended. No hydronephrosis. The collecting systems are normal. The left ureter is well opacified with excreted contrast and is normal-appearing. Right ureter not optimally opacified with excreted contrast and not as well evaluated. BLADDER: Unremarkable. GASTROINTESTINAL TRACT: The small and large bowel are unremarkable. The appendix is unremarkable. ABDOMINAL WALL: Small umbilical hernia containing fat. LYMPH NODES: Normal. VASCULAR: Atherosclerotic disease. PELVIC VISCERA: Unremarkable. OSSEUS STRUCTURES: Degenerative disc disease at L5-S1. IMPRESSION: Small left renal stone. Assessment & Plan Assessment & Plan (1) Microhematuria: Code(s): R31.29 - Other microscopic hematuria Category: Medical (2) Smoker: Code(s): F17.200 - Nicotine dependence, unspecified, uncomplicated Category: Social Hx (3) Nephrolithiasis: Code(s): N20.0 - Calculus of kidney Category: Medical (4) Bladder wall thickening: Code(s): N32.89 - Other specified disorders of bladder Category: Medical (5) Urinary frequency: Code(s): R35.0 - Frequency of micturition Category: Medical Plan Myrbetriq 25 mg daily, fu TELEPHONER in 3 months Orders: Orders 2 AMB Cystoscopy Today N20.0 - Calculus of kidney, R31.29 - Other microscopic hematuria AMB Urinalysis Automated Today Z13.9 - Encounter for screening, unspecified Medications: New mirabegron ER (Myrbetriq) 25 mg PO DAILY 30 tabs 4RF Patient Instructions: The patient had an opportunity to ask questions regarding treatment plan. The patient expressed understanding and agreement with the above treatment plan. The patient is aware they should contact our office by phone for worsening of their current condition or the appearance of new symptoms. Compliance is encouraged with any medications and followup testing that is ordered. It is a privilege to be allowed the opportunity to participate in the urologic care of your patient. If you have any questions or concerns regarding treatment for the above conditions please do not hesitate to contact me. The office telephone contact is [phone]. This note is constructed in part using voice recognition software. While every effort has been made to ensure accuracy personal computer network analyst errors may have been included. Yours sincerely, Merline Chacon MD Coding Level of Care Code Est Pt Level 4 (98180) Procedure Only Diagnoses Microhematuria R31.29 Smoker F17.200 Nephrolithiasis N20.0 Bladder wall thickening N32.89 Urinary frequency R35.0 CPT Codes Cystoscopy - CPT: [id number] ([id number])
== END 2024-03-29 10:27 | disposition home or self-care (01) ==
PROVIDERS: PCP Nurse Practitioner Family; Visit Provider Urology
DX: N32.89 Other specified disorders of bladder (principal); R35.0 Frequency of micturition; N20.0 Calculus of kidney; F17.200 Nicotine dependence, unspecified, uncomplicated; Z13.9 Encounter for screening, unspecified
CPT/HCPCS: 52000; 99214

== ENCOUNTER → 2024-03-29 09:26 | Outpatient (BNVA) | payer OTHER, SELFPAY | PROVIDERS: PCP Nurse Practitioner Family; Visit Provider Urology | DX: R31.29 Other microscopic hematuria (principal); N20.0 Calculus of kidney; N32.89 Other specified disorders of bladder; R35.0 Frequency of micturition; F17.210 Nicotine dependence, cigarettes, uncomplicated | CPT/HCPCS: 52000; 81003; 99212 ==

== ENCOUNTER 2024-05-23 11:17 | Outpatient (AMB) | payer OTHER, SELFPAY ==
--- NOTE | 2024-05-23 11:39 | MHC.PC.OV ---
Vital Signs 05/23/24 11:40 Height 5 ft 2 in Weight 132 lb BMI 24.1 BP 120/80 Blood Pressure Location Rt brachial Position Sitting Pulse 72 Pulse Source Pulse Oximeter Pulse Oximetry (%) 97 Oxygen Delivery Method Room Air Intake Visit Reasons: 3 Months follow up Intake Note: Patient here for DM f/u Allergies No Known Allergies [No Known Allergies*] Allergy (Unverified 05/23/24 12:24) Medication List - Last Reconciled 05/23/24 by JOSE Baird alcohol swabs (Alcohol Pads) 1 pad topically; aspirin (Adult Aspirin Regimen) 81 mg PO DAILY 90 days atorvastatin 20 mg PO BEDTIME calcium carbonate-vitamin D3 600 mg-12.5 mcg (500 unit) 1 cap PO BID 90 days empagliflozin (Jardiance) 10 mg PO DAILY hydrochlorothiazide 12.5 mg PO DAILY 90 days lancets (OneTouch Delica Plus Lancet) Test blood sugar twice a day losartan 25 mg PO DAILY 90 days meclizine 25 mg PO BID PRN 15 days mirabegron ER (Myrbetriq) 25 mg PO DAILY OneTouch Ultra Test (blood sugar diagnostic) BID testing NS OneTouch Ultra2 Meter (blood-glucose meter) BID testing NS Tobacco use date assessed: 03/08/24 Fall risk assessment: No Falls in past year Last assessed Fall Risk: 05/23/24 Dental Screening Dental Screen Date: 03/08/24 HPI 3 Months follow up HPI Details Pt is a diabetic, on an ARB and a statin. A1C in office today is 6.4. Due for microalbumin, will order. Denies polyuria, polydipsia, and neuropathy. Pt denies any signs and symptoms of hypoglycemia and does know how to correct it. Encouraged pt to have labs drawn. Eye exam is up to date. PFSH Surgical History Hx of cystoscopy Social History Housing: Apartment Patient Tobacco Use Status: Current everyday Tobacco user Cigarette Packs Per Day: 1 e-Cigarette/Vaping Use: Never Used Second Hand Smoke Exposure: Yes service: No Current occupational status: retired Cognitive needs: No Hearing needs: No Vision needs: No Questionnaire Thrive Questionnaire Date Thrive assessed: 08/09/23 LINETTE-7 AMB Questionnaire LINETTE-7 Date LINETTE - 7 assessed: 08/09/23 Source: Developed by Drs. Jonathan Cordoba, Vicky Chaves, Denzel Thibodeaux and colleagues, with an educational bobbi from [employer]. Review of Systems Const Reports as per HPI Physical exam (Primary Care) Vital Signs: Last Vital Signs Pulse 72 05/23/24 11:40 BP 120/80 05/23/24 11:40 Pulse Ox 97 05/23/24 11:40 Oxygen Delivery Method Room Air 05/23/24 11:40 BMI result Body Mass Index 24.1 Tobacco/Smoking Status: Tobacco use Status Tobacco use date assessed 03/08/24 05/23/24 11:40 Patient Tobacco Use Status Current everyday Tobacco 05/23/24 11:40 e-Cigarette/Vaping Use Never Used 05/23/24 11:40 Thrive Assessment: Date of Thrive Assessment Date Thrive assessed 08/09/23 05/23/24 11:40 Const General: cooperative Orientation/consciousness: patient oriented x3 Resp Effort & Inspection: normal respiratory effort Auscultation: clear to auscultation bilaterally and diminished lung sounds Cardio Rate: regular rate Rhythm: regular rhythm Heart sounds: S1 normal heart sound present and S2 normal heart sound present Neuro General: patient oriented x3 Extrem Other: bilat feet: + sensation with use of monofilament, feet intact Psych Appearance: grossly normal Mental Status: mental status grossly normal Speech and movement: Normal speech and movement present Affect: normal affect Attitude: cooperative Thought process: Normal thought process present Thought content: Normal thought content present Insight: Good insight present (Psych) Judgement: Good judgement present (Psych) Assessment and Plan Assessment & Plan (1) Diabetes: Code(s): E11.9 - Type 2 diabetes mellitus without complications Plan: Labs ordered Plan The patient agreed to the use of a director medical for this encounter. Scribed for JOSE Oneill by Yenifer Arias director medical, on 05/23/2024 at 11:50 EST. Orders: Orders Complete Blood Count Auto Diff Today E11.9 - Type 2 diabetes mellitus without complications Comprehensive [place]. Panel Fast Today E11.9 - Type 2 diabetes mellitus without complications UA CC w/rflx Micro + Cult Today E11.9 - Type 2 diabetes mellitus without complications Microalbumin, Random (w Creat) Today E11.9 - Type 2 diabetes mellitus without complications TSH reflex Free T4 Today E11.9 - Type 2 diabetes mellitus without complications Lipid Panel Today E11.9 - Type 2 diabetes mellitus without complications Coding Level of Care Code Est Pt Level 3 (03834) Diagnoses Diabetes E11.9
[2024-05-23 11:40] VITALS: BP 120/80; PULSE 72; O2SAT 97; BMI 24.1
== END 2024-05-23 14:01 | disposition home or self-care (01) ==
PROVIDERS: PCP Nurse Practitioner Family; Visit Provider Nurse Practitioner Family
DX: Z23 Encounter for immunization (principal)
CPT/HCPCS: 83036; 90471; 90677; 99213

== ENCOUNTER 2024-06-29 09:49 | Outpatient (AMB) | payer OTHER, SELFPAY ==
--- NOTE | 2024-06-29 09:49 | MHC.OFFVIS ---
Intake Visit Reasons: 3m follow up Intake Note: Patient presents today for tele visit follow up on: kidney stone, urinary frequency, and microscopic hematuria Urology Medications: myrbetriq Blood Thinner: aspirin Pressure Vessel Inspector Required: No Accompanied by: Self / Same As Patient Allergies No Known Allergies [No Known Allergies*] Allergy (Unverified 06/29/24 09:53) Medication List - Last Reconciled 06/29/24 by LEONARDO Iglesias-YASIR alcohol swabs (Alcohol Pads) 1 pad topically; aspirin (Adult Aspirin Regimen) 81 mg PO DAILY 90 days atorvastatin 20 mg PO BEDTIME calcium carbonate-vitamin D3 600 mg-12.5 mcg (500 unit) 1 cap PO BID 90 days empagliflozin (Jardiance) 10 mg PO DAILY hydrochlorothiazide 12.5 mg PO DAILY 90 days lancets (OneTouch Delica Plus Lancet) Test blood sugar twice a day losartan 25 mg PO DAILY 90 days mirabegron ER (Myrbetriq) 25 mg PO DAILY OneTouch Ultra Test (blood sugar diagnostic) BID testing NS OneTouch Ultra2 Meter (blood-glucose meter) BID testing NS HPI Comments Details: Chaparrita is a very pleasant 64-year-old female patient of Dr. Lewis. She has a past medical history of hypertension and prediabetes. She is being followed up on today via video telehealth for her lower urinary tract symptoms as well as microscopic hematuria. Of note, during last office visit approximately 3 months to patient underwent in office cystoscopy with Dr. Cody Stafford noting bladder wall thickening, no suspicious bladder lesions visualized. Patient with a history of microscopic hematuria in the setting of nicotine dependence previous workup has included CT urogram noting 3 mm stone in the lower pole of the left kidney and a 1 cm cyst. During last office visit trial of Myrbetriq was prescribed for lower urinary tract symptoms of urinary urgency and frequency. In discussion with the patient today she reports noting significant improvement in lower urinary tract symptoms with 25 mg of Myrbetriq and is enquiring medication refill. She otherwise denies incontinence, nocturia, hematuria, dysuria, foul smelling urine, changes to urinary stream, flank pain, fever, and or chills. She is happy with her current voiding parameters. Discussed at length potential causes of microscopic hematuria in the setting of nicotine dependence. Urine cytology 02/11 and 03/14 Negative for high-grade urothelial carcinoma. Discussed importance of smoking cessation. She otherwise offers no other issues or concerns at this time. PFSH Surgical History Hx of cystoscopy Social History Housing: Apartment Patient Tobacco Use Status: Current everyday Tobacco user Cigarette Packs Per Day: 1 e-Cigarette/Vaping Use: Never Used Second Hand Smoke Exposure: Yes service: No Current occupational status: retired Cognitive needs: No Hearing needs: No Vision needs: No Review of Systems Const Reports no additional complaints Eyes Reports no additional complaints ENT Reports no additional complaints Card Reports as per HPI Resp Reports no additional complaints GI Reports no additional complaints Reports as per HPI Musc Reports no additional complaints Neuro Reports no additional complaints Psych Reports no additional complaints Endo Reports as per HPI Louis/Lymph Reports no additional complaints Aller/Immun Reports no additional complaints Physical Exam Const General: cooperative, healthy appearing, comfortable, no acute distress, well developed, alert and awake Orientation/consciousness: patient oriented x3 Resp Effort & Inspection: normal respiratory effort and able to speak in complete sentences Neuro General: patient oriented x3 Psych Appearance: grossly normal and well kempt Mental Status: mental status grossly normal Speech and movement: Clear speech present Affect: normal affect Attitude: cooperative Thought process: Normal thought process present Thought content: Normal thought content present Insight: Fair insight present (Psych) Judgement: Fair judgement present (Psych) Telehealth Telehealth Telehealth Platform: [facility] Location of provider rendering services: practice address Location of patient: address on file Patient Identification confirmed using: Name, : Yes Telehealth method: video Patient verbally consented to treatment: Yes Patient verbally consented to billing insurance company: Yes Patient informed of any privacy concerns related to visit: Yes Minutes spent on Phone/Video with Pt.: 15 Assessment & Plan Assessment & Plan (1) Urinary frequency: Code(s): R35.0 - Frequency of micturition Category: Medical (2) Bladder wall thickening: Code(s): N32.89 - Other specified disorders of bladder Category: Medical (3) Nephrolithiasis: Code(s): N20.0 - Calculus of kidney Category: Medical (4) Microhematuria: Code(s): R31.29 - Other microscopic hematuria Category: Medical (5) Smoker: Code(s): F17.200 - Nicotine dependence, unspecified, uncomplicated Category: Social Hx Plan Continue Myrbetriq as discussed and prescribed; refill provided. Patient currently denies any bothersome urinary issues or concerns. She reports be happy with current voiding parameters. Discussed importance of smoking cessation Will continue with surveillance monitoring of microscopic hematuria in the setting of nicotine dependence. Follow-up in 6 months with [facility]; or sooner with any issues, concerns, and or questions. Medications: Changed From mirabegron ER (Myrbetriq) 25 mg PO DAILY 30 tabs 4RF To mirabegron ER (Myrbetriq) 25 mg PO DAILY 90 days 90 tabs 3RF Patient Instructions: The patient had an opportunity to ask questions regarding the treatment plan. All questions were answered. Physical exam, labs, and imaging were discussed and reviewed in detail. As well as risks, benefits, and discussion of treatment choices. No major barriers to understanding were identified. The patient expressed understanding and agreement with the above treatment plan. The patient was made aware they should contact our office by phone for worsening of their current condition, the appearance of new symptoms, or with any questions or concerns. Compliance is encouraged with any medications and follow up testing that is ordered. It is a privilege to be allowed the opportunity to participate in? your urological care.? Again, if you have any questions or concerns If you have any questions or concerns please do not hesitate to contact me. The office is [phone]. This note is constructed using voice recognition software. While every effort has been made to ensure accuracy alternative medicine practitioner errors may have been included. Yours sincerely, JOSE Iglesias Coding Level of Care Code Tele Est Pt Level 3 (77559) Diagnoses Urinary frequency R35.0 Bladder wall thickening N32.89 Nephrolithiasis N20.0 Microhematuria R31.29 Smoker F17.200
== END 2024-06-29 10:32 | disposition home or self-care (01) ==
LOC: HO.HUSH 09:49
PROVIDERS: PCP Nurse Practitioner Family; Visit Provider Nurse Practitioner Family
DX: R35.0 Frequency of micturition (principal); N32.89 Other specified disorders of bladder; N20.0 Calculus of kidney; R31.29 Other microscopic hematuria; F17.200 Nicotine dependence, unspecified, uncomplicated
CPT/HCPCS: 99213

== ENCOUNTER → 2024-06-29 09:49 | Outpatient (BNVA) | payer OTHER, SELFPAY | PROVIDERS: PCP Nurse Practitioner Family; Visit Provider Nurse Practitioner Family ==

== ENCOUNTER 2024-08-21 07:37 | Outpatient (REF) | payer OTHER, SELFPAY ==
[2024-08-21 10:01] LABS: MANUAL DIFF FLAG NO
[2024-08-21 10:06] LABS: Appearance Urine Cloudy; Basophils Absolute Auto 0.1 X10*3/uL (0.0-0.2); Basophils Percent Auto 1.1 % (0-2); Color Urine Yellow; Eosinophils Absolute Auto 0.5 X10*3/uL (0.0-0.4); Eosinophils Percent Auto 5.8 % (0-4); Glucose Urine UA >=1000 mg/dL (Negative); Hematocrit 47.3 % (37.0-47.0); Imm Gran Abs Auto 0.02 X10*3/uL (0.00-0.03); Imm Gran Pct Auto 0.2 % (0.0-0.4); Leukocyte Esterase Urine Moderate (2+) (Negative); Lymphocytes Percent Auto 33.7 % (20-40); Mean Corpuscular HGB Conc 33.8 g/dl (31.0-35.0); Mean Corpuscular Hemoglobin 31.7 pg (27.0-33.0); Mean Corpuscular Volume 93.7 fL (80.0-98.0); Mean Platelet Volume 9.7 fL (9.4-12.3); Monocytes Absolute Auto 0.6 X10*3/uL (0.1-1.2); Monocytes Percent Auto 7.2 % (2-11); Neutrophils Absolute Auto 4.6 x10*3/uL (2.0-8.3); Nitrite Urine Negative (Negative); PH 5.5 (5.0-9.0); Platelet Count 240 X10*3/uL (160-400); Red Blood Count 5.05 X10*6/uL (4.20-5.50); Red Cell Distribution Width 13.2 % (11.0-16.0); UMIC TRIGGER UACC YES; Urine Blood Moderate (2+) (Negative); Urine Ketones Negative (Negative); Urine Protein Negative (Neg-Trace); White Blood Count 8.8 X10*3/uL (4.8-10.8)
[2024-08-21 10:19] LABS: Bacteria Urine 1+ (None Seen); Hyaline Casts Urine 0-2 /LPF (0-2); UACC Culture Trigger YES; WBC Urine 21-50 /HPF (0-5)
[2024-08-21 10:34] LABS: Alanine Aminotransferase 17 U/L (0-31); Albumin Level 4.4 g/dL (3.5-5.0); Alkaline Phosphatase 80 U/L (39-117); Anion Gap 12 (12-20); Aspartate Amino Transferase 18 U/L (5-31); Bilirubin Total 0.5 mg/dL (0.0-1.0); Blood Urea Nitrogen 11 mg/dL (9-16); Calcium 9.7 mg/dL (8.4-10.2); Carbon Dioxide 23 mmol/L (22-29); Chloride 111 mmol/L (96-108); Cholesterol 128 mg/dL (<200); Estimated Glomerular Filt Rate > 60; Glucose Fasting 105 mg/dL (60-99); HDL Cholesterol 39 mg/dL (>40); LDL Cholesterol Calculated 60 mg/dL (<100); Potassium 4.5 mmol/L (3.3-5.1); Sodium 141 mmol/L (135-145); Total Protein 7.7 g/dL (6.5-8.0); Triglycerides 148 mg/dL (<150)
[2024-08-21 10:39] LABS: Creatinine Urine 89.21 mg/dL; Microalbum/Creatinine Ratio Ur 14.5 ug/mg cr (<30)
[2024-08-21 10:53] LABS: TSH reflex Free T4 0.75 uIU/mL (0.32-4.0)
== END 2024-08-21 07:38 | disposition home or self-care (01) ==
LOC: HO.HMGCLDS 07:37
PROVIDERS: PCP Nurse Practitioner Family; Visit Provider Nurse Practitioner Family
DX: E11.9 Type 2 diabetes mellitus without complications (principal)
CPT/HCPCS: 36415; 80053; 80061; 81001; 82043; 82570; 84443; 85025; 87086

== ENCOUNTER 2024-08-23 09:56 | Outpatient (AMB) | payer OTHER, SELFPAY ==
[2024-08-23 10:05] VITALS: BP 120/78; PULSE 71; O2SAT 97; BMI 23.6
--- NOTE | 2024-08-23 10:05 | A.OFFPC_ITS ---
Vital Signs 08/23/24 10:05 Height 5 ft 2 in Weight 129 lb BMI 23.6 BP 120/78 Blood Pressure Location Rt brachial Position Sitting Pulse 71 Pulse Source Pulse Oximeter Pulse Oximetry (%) 97 Intake Visit Reasons: annual PE Intake Note: pt is here for annual exam Business Support Manager Required: No Accompanied by: Self / Same As Patient Allergies No Known Allergies [No Known Allergies*] Allergy (Verified 08/23/24 11:18) Medication List - Last Reconciled 08/23/24 by JOSE Baird alcohol swabs (Alcohol Pads) 1 pad topically; aspirin (Adult Aspirin Regimen) 81 mg PO DAILY 90 days atorvastatin 20 mg PO BEDTIME calcium carbonate-vitamin D3 600 mg-12.5 mcg (500 unit) 1 cap PO BID 90 days empagliflozin (Jardiance) 10 mg PO DAILY hydrochlorothiazide 12.5 mg PO DAILY 90 days lancets (OneTouch Delica Plus Lancet) Test blood sugar twice a day losartan 25 mg PO DAILY 90 days mirabegron ER (Myrbetriq) 25 mg PO DAILY 90 days OneTouch Ultra Test (blood sugar diagnostic) BID testing NS OneTouch Ultra2 Meter (blood-glucose meter) BID testing NS Tobacco use date assessed: 03/08/24 Fall risk assessment: No Falls in past year Last assessed Fall Risk: 08/23/24 Dental Screening Dental Screen Date: 03/08/24 HPI annual PE HPI Details Pt is here for a PE. Labs were already performed. Refuses colonoscopy, pt has a cologuard kit but has not done this. Pt will schedule her own mammo. Pt does not want a surgical aide. Pt is a diabetic, on an ARB and a statin. A1C in office today is 6.4. Microalbumin is up to date. Denies polyuria, polydipsia, and neuro gaby. Pt denies any signs and symptoms of hypoglycemia and does know how to correct it. Pt is following up with urology. Refuses LDCT. PFSH Surgical History Hx of cystoscopy Social History Housing: Apartment Patient Tobacco Use Status: Current everyday Tobacco user Cigarette Packs Per Day: 1 e-Cigarette/Vaping Use: Never Used Second Hand Smoke Exposure: Yes service: No Current occupational status: retired Cognitive needs: No Hearing needs: No Vision needs: No Questionnaire PHQ-9 Over the last 2 weeks, how often have you been bothered by any of the following problems? 1. Little interest or pleasure in doing things: not at all 2. Feeling down, depressed, or hopeless: not at all 3. Trouble falling or staying asleep, or sleeping too much: not at all 4. Feeling tired or having little energy: not at all 5. Poor appetite or overeating: not at all 6. Feeling bad about yourself - or that you are a failure or have let yourself or your family down: not at all 7. Trouble concentrating on things, such as reading the newspaper or watching television: not at all 8. Moving or speaking so slowly that other people could have noticed. Or the opposite - being so fidgety or restless that you have been moving around a lot more than usual: not at all 9. Thoughts that you would be better off or of hurting yourself in some way: not at all Total score: 0 Depression Screening Interpretation: Negative Depression Screening Done: Yes 45763 - PHQ-9 Billing: Yes Source: Developed by Drs. Jonathan Cordoba, Vicky Chaves, Denzel Thibodeaux and colleagues, with an educational bobbi from [employer]. Thrive Questionnaire Date Thrive assessed: 08/23/24 I am a: Patient What is your living situation today?: I have a steady place to live Within the past 12 months, did the food you bought not last and you didn't have the money to get more?: Sometimes True Within the past 12 months, did you worry whether your food would run out before you got money to buy more?: Sometimes True Do you have trouble paying for medicines?: I choose not to answer this question Do you have trouble getting transportation to medical appointments?: No Do you have trouble paying your heating and electricity bill?: No Do you have trouble taking care of your child, family member or friend?: No Do you have trouble with day-to-day activities such as bathing, preparing meals, shopping, managing finances, etc.?: No Are you interested in more education?: No Please select the resources that you would like help with: None Currently or been in a relationship where the following occur: No concerns reported THRIVE Score: 2 AUDIT C Alcohol Use Questionnaire (AUDIT-C) 1. How often do you have a drink containing alcohol?: Monthly or less 2. How many drinks containing alcohol do you have on a typical day when you are drinking?: 1 or 2 3. How often do you have six or more drinks on one occasion?: Never Total Score: 1 Score Reviewed/Action Taken: Yes LINETTE-7 AMB Questionnaire LINETTE-7 Date LINETTE - 7 assessed: 08/23/24 Feeling nervous, anxious, or on edge: 0 = Not at all Not being able to stop or control worryin = Not at all Worrying too much about different things: 0 = Not at all Trouble relaxin = Not at all Being so restless that it is hard to sit still: 0 = Not at all Becoming easily annoyed or irritable: 0 = Not at all Feeling afraid as if something awful might happen: 0 = Not at all Total LINETTE-7 score (0-4 normal; 5-9 mild; 10-14 moderate; 15-21 severe): 0 Source: Developed by Drs. Jonathan Cordoba, Vicky Chaves, Denzel Thibodeaux and colleagues, with an educational bobbi from [employer]. LINETTE-7 Assessment Billing LINETTE-7 Assessment Tool: LINETTE-7 Assessment 49943 Review of Systems Const Denies chills and Denies fever(s) Eyes Denies blurry vision ENT Denies vertigo, Denies dizziness and Denies sore throat Card Denies chest pain at rest, Denies chest pain with activity, Denies diaphoresis, Denies dyspnea and Denies dyspnea on exertion Resp Denies cough, Denies dyspnea, Denies dyspnea on exertion and Denies wheezing GI Denies abdominal pain, Denies melena, Denies hematochezia, Denies constipation, Denies diarrhea and Denies loose stools Denies hematuria Musc Denies numbness and Denies tingling Skin/Breast Denies lesions Neuro Denies vertigo, Denies dizziness, Denies numbness and Denies tingling Psych Denies anxiety, Denies depression, Denies homicidal ideation, Denies suicidal ideation and Denies other (substance abuse) Aller/Immun Denies wheezing Physical exam (Primary Care) Vital Signs: Last Vital Signs Pulse 71 08/23/24 10:05 BP 120/78 08/23/24 10:05 Pulse Ox 97 08/23/24 10:05 BMI result Body Mass Index 23.6 Tobacco/Smoking Status: Tobacco use Status Tobacco use date assessed 03/08/24 08/23/24 10:07 Patient Tobacco Use Status Current everyday Tobacco 08/23/24 10:07 e-Cigarette/Vaping Use Never Used 08/23/24 10:07 PHQ-9: PHQ-9 Score PHQ-9: Total score 0 08/23/24 10:32 Depression Screening Interpretation: Negative Thrive Assessment: Date of Thrive Assessment Date Thrive assessed 08/23/24 08/23/24 10:07 Currently or been in a relationship where the following occur: No concerns reported Const General: cooperative Nutritional Appearance: well nourished Orientation/consciousness: patient oriented x3 HENMT Head: Yes normal to inspection, Yes normocephalic and Yes atraumatic Ears: TM's normal bilaterally Eyes General: appearance normal, both eyes and all related structures Alignment and Position: alignment normal and position normal Neck Neck: Yes normal visual inspection, Yes no lymphadenopathy and Yes supple Resp Effort & Inspection: normal respiratory effort Auscultation: clear to auscultation bilaterally Cardio Rate: regular rate Rhythm: regular rhythm Heart sounds: S1 normal heart sound present, S2 normal heart sound present and no murmurs GI Palpation (GI): Soft to palpation and nontender Auscultation: normal bowel sounds Skin Rashes: no rashes Neuro General: patient oriented x3, moves all extremities, no focal motor deficits and deep tendon reflexes 2+ bilaterally Romberg Test: Negative Extrem Other: bilat feet: + sensation with use of monofilament, feet intact, + dorsalis pedis pulses Psych Appearance: grossly normal Mental Status: mental status grossly normal Speech and movement: Normal speech and movement present Affect: normal affect Attitude: cooperative Thought process: Normal thought process present Thought content: Normal thought content present Insight: Good insight present (Psych) Judgement: Good judgement present (Psych) Results AMB Hemoglobin A1c AMB Hemoglobin A1c 6.4 % Last Edit by Sonny Ellington CMA on 08/23/24 10: 41 Results Reviewed Results Reviewed: Laboratory Last Values Hgb A1c (Clinic) 6.4 % (4.0-6.0) H 08/23/24 10:41 Coding Level of Care Code Est Pt Prev Care 40-64y(23325) Diagnoses Diabetes E11.9 Physical exam Z00.00 Additional Codes LINETTE-7 Assessment Billing - LINETTE-7 Assessment Tool: LINETTE-7 Assessment 84536 ([id number]) Assessment & Plan Assessment & Plan (1) Diabetes: Code(s): E11.9 - Type 2 diabetes mellitus without complications Category: Medical Plan: Stable, continue current meds (2) Physical exam: Code(s): Z00.00 - Encounter for general adult medical examination without abnormal findings Category: Medical Plan: Labs already performed Plan The patient agreed to the use of a coroner/medical examiner for this encounter. Scribed for JOSE Oneill by Yenifer Arias coroner/medical examiner, on 08/23/2024 at 10:45 EST. Orders: Orders AMB Hemoglobin A1c Today Z13.9 - Encounter for screening, unspecified
== END 2024-08-23 16:32 | disposition home or self-care (01) ==
PROVIDERS: PCP Nurse Practitioner Family; Visit Provider Nurse Practitioner Family
DX: E11.9 Type 2 diabetes mellitus without complications (principal); Z00.00 Encounter for general adult medical examination without abnormal findings; Z13.9 Encounter for screening, unspecified

== ENCOUNTER → 2024-08-23 09:56 | Outpatient (BNVA) | payer OTHER, SELFPAY | PROVIDERS: PCP Nurse Practitioner Family; Visit Provider Nurse Practitioner Family ==

== ENCOUNTER 2024-08-23 11:01 | Outpatient (REF) | payer OTHER, SELFPAY ==
[2024-08-23 13:20] LABS: Appearance Urine Clear; Color Urine Yellow; Glucose Urine UA >=1000 mg/dL (Negative); Leukocyte Esterase Urine Moderate (2+) (Negative); Nitrite Urine Negative (Negative); PH 5.5 (5.0-9.0); UMIC TRIGGER UACC YES; Urine Blood Trace (Negative); Urine Ketones Negative (Negative); Urine Protein Negative (Neg-Trace)
[2024-08-23 13:26] LABS: Bacteria Urine 1+ (None Seen); Hyaline Casts Urine 0-2 /LPF (0-2); RBC Urine 0-2 /HPF (0-2); UACC Culture Trigger YES; WBC Urine 21-50 /HPF (0-5)
== END 2024-08-23 11:02 | disposition home or self-care (01) ==
LOC: HO.HMGCLDS 11:01
PROVIDERS: PCP Nurse Practitioner Family; Visit Provider Nurse Practitioner Family
DX: Z00.00 Encounter for general adult medical examination without abnormal findings (principal); E11.9 Type 2 diabetes mellitus without complications
CPT/HCPCS: 81001; 83036; 87086; 96127; 99396

== ENCOUNTER 2025-02-26 11:06 | Outpatient (AMB) | payer OTHER, SELFPAY ==
--- NOTE | 2025-02-26 11:16 | A.OFFPC_ITS ---
Vital Signs 02/26/25 11:17 Height 5 ft 2 in Weight 129 lb BMI 23.6 BP 120/80 Blood Pressure Location Lt brachial Position Sitting Pulse 91 Pulse Source Pulse Oximeter Pulse Oximetry (%) 98 Oxygen Delivery Method Room Air Intake Visit Reasons: 6 month follow up Allergies No Known Allergies [No Known Allergies*] Allergy (Verified 02/26/25 11:50) Medication List - Last Reconciled 02/26/25 by LEONARDO Baird-YASIR alcohol swabs (Alcohol Pads) 1 pad topically; aspirin (Adult Aspirin Regimen) 81 mg PO DAILY 90 days atorvastatin 20 mg PO BEDTIME calcium carbonate-vitamin D3 600 mg-12.5 mcg (500 unit) 1 cap PO BID 90 days empagliflozin (Jardiance) 10 mg PO DAILY hydrochlorothiazide 12.5 mg PO DAILY 90 days lancets (OneTouch Delica Plus Lancet) Test blood sugar twice a day losartan 25 mg PO DAILY 90 days OneTouch Ultra Test (blood sugar diagnostic) BID testing NS OneTouch Ultra2 Meter (blood-glucose meter) BID testing NS Tobacco use date assessed: 02/26/25 Fall risk assessment: No Falls in past year Last assessed Fall Risk: 02/26/25 Dental Screening Dental Screen Date: 02/26/25 Did you have a dental visit in the last 12 months?: No Did you have a dental problem in the last 6 months where you did not have access to dental care?: No Was dental information given to patient?: Patient declined HPI 6 month follow up HPI Details Chief Complaint Follow-up for hypertension and diabetes management History of Present Illness The patient is a 64-year-old female presenting for a follow-up regarding hypertension and type 2 diabetes mellitus. She confirms that her diabetes is well-controlled without specific details on recent glucose monitoring results. She denies symptoms, including polyuria, polydipsia, and neuropathy. Compounding her medical issues, she has a history of tobacco use and is seeking assistance with cessation, demonstrating an understanding of the need for willpower and adherence to nicotine patch guidelines. She declines further lung screening via CT scan currently. Additionally, she is overdue for an A1c test, a mammogram, and emphasizes the necessity of completing her Cologuard testing. Social History - Smokes tobacco and desires to quit - Engaged in efforts to stop smoking, aw are of nicotine patch usage precautions Health Maintenance - Due for A1c test - Overdue for a mammogram with an order to be placed - Cologuard test already sent to the [facility] ient - Nicotine replacement therapy with [facility] hes discussed Review of Systems - Endocrine: Denies polyuria, polydipsia - Neurologic: Denies neuropathy symptoms -denies any sob, fevers, chills, dizzine ss, GOLDEN, blurred vision Physical Exam General: Cooperative, healthy appearing, comfortable, no acute distress and well developed Orientation: Patient oriented x3 Limitations: No limitations Head: Normal to inspection Ears: Hearing grossly normal bilaterally Nose: Normal external nose present Face and sinus: Normal facial exam Eyes: Appearance normal, both eyes and all related structures Neck: Normal visual inspection and Yes full ROM Respiratory: Normal respiratory effort and able to speak in complete sentences. Clear to auscultation bilaterally Cardiovascular: Regular rate and rhythm. Normal S1 and S2 GI: Normal to inspection. Soft to palpation and nontender Skin: No rashes or lesions noted Neuro: Patient oriented x3 Extremities: Normal to inspection, feet intact bilaterally, positive sensation with use of monofilament on feet Results Plan I will proceed with obtaining her A1c to monitor diabetes control, addressing adherence to routine labs. I will provide nicotine patches to support smoking cessation, advising on risks and the critical role of willpower. I will ensure she receives her overdue mammogram. I confirmed that the Cologuard test is in progress and reiterated its importance for colon cancer screening. Discussion Notes I discussed with the patient the importance of routine monitoring of her hypertension and diabetes mellitus, specifically ordering an A1c. We talked about the benefits of smoking cessation and the use of nicotine patches, addressing potential risks and emphasizing willpower. She declined a low-dose CT scan for lung cancer screening at this time due to personal preference. For health maintenance, I emphasized the mammogram, cervical screenings, Cologuard test's value in early detection of cancers. We agreed on these plans and their expected outcomes. Patient Instructions - Complete the A1c test when labs are do ne - Follow the plan for using nicotine pat ches as discussed to assist with josue tting smoking - Complete the mammogram as ordered - Ensure to complete Cologuard testing - Avoid using nicotine patches while smo [facility] Surgical History Hx of cystoscopy Social History Housing: Apartment Patient Tobacco Use Status: Current everyday Tobacco user Cigarette Packs Per Day: 1 e-Cigarette/Vaping Use: Never Used Second Hand Smoke Exposure: Yes service: No Current occupational status: retired Cognitive needs: No Hearing needs: No Vision needs: No Questionnaire PHQ-9 Over the last 2 weeks, how often have you been bothered by any of the following problems? 1. Little interest or pleasure in doing things: not at all 2. Feeling down, depressed, or hopeless: not at all 3. Trouble falling or staying asleep, or sleeping too much: not at all 4. Feeling tired or having little energy: not at all 5. Poor appetite or overeating: not at all 6. Feeling bad about yourself - or that you are a failure or have let yourself or your family down: not at all 7. Trouble concentrating on things, such as reading the newspaper or watching television: not at all 8. Moving or speaking so slowly that other people could have noticed. Or the opposite - being so fidgety or restless that you have been moving around a lot more than usual: not at all 9. Thoughts that you would be better off or of hurting yourself in some way: not at all Total score: 0 Depression Screening Interpretation: Negative Depression Screening Done: Yes 11208 - PHQ-9 Billing: Yes Source: Developed by Drs. Jonathan Cordoba, Vicky Chaves, Denzel Thibodeaux and colleagues, with an educational bobbi from [employer]. Thrive Questionnaire Date Thrive assessed: 02/26/25 I am a: Patient What is your living situation today?: I have a steady place to live Within the past 12 months, did the food you bought not last and you didn't have the money to get more?: I choose not to answer this question Within the past 12 months, did you worry whether your food would run out before you got money to buy more?: I choose not to answer this question Do you have trouble paying for medicines?: No Do you have trouble paying your heating and electricity bill?: No Do you have trouble taking care of your child, family member or friend?: No Do you have trouble with day-to-day activities such as bathing, preparing meals, shopping, managing finances, etc.?: No Are you currently unemployed and looking for a job?: No Are you interested in more education?: No Please select the resources that you would like help with: None Currently or been in a relationship where the following occur: No concerns reported THRIVE Score: 0 AUDIT C Alcohol Use Questionnaire (AUDIT-C) 1. How often do you have a drink containing alcohol?: Monthly or less 2. How many drinks containing alcohol do you have on a typical day when you are drinking?: 1 or 2 3. How often do you have six or more drinks on one occasion?: Never Total Score: 1 Score Reviewed/Action Taken: Yes LINETTE-7 AMB Questionnaire LINETTE-7 Date LINETTE - 7 assessed: 02/26/25 Feeling nervous, anxious, or on edge: 0 = Not at all Not being able to stop or control worryin = Not at all Worrying too much about different things: 0 = Not at all Being so restless that it is hard to sit still: 0 = Not at all Becoming easily annoyed or irritable: 0 = Not at all Feeling afraid as if something awful might happen: 0 = Not at all Source: Developed by Drs. Jonathan Cordoba, Vicky Chaves, Denzel Thibodeaux and colleagues, with an educational bobbi from [employer]. LINETTE-7 Assessment Billing LINETTE-7 Assessment Tool: LINETTE-7 Assessment 92884 Physical exam (Primary Care) Vital Signs: Last Vital Signs Pulse 91 02/26/25 11:17 BP 120/80 02/26/25 11:17 Pulse Ox 98 02/26/25 11:17 Oxygen Delivery Method Room Air 02/26/25 11:17 BMI result Body Mass Index 23.6 Tobacco/Smoking Status: Tobacco use Status Tobacco use date assessed 02/26/25 02/26/25 11:20 Patient Tobacco Use Status Current everyday Tobacco 02/26/25 11:17 e-Cigarette/Vaping Use Never Used 02/26/25 11:17 PHQ-9: PHQ-9 Score PHQ-9: Total score 0 02/26/25 11:20 Depression Screening Interpretation: Negative Thrive Assessment: Date of Thrive Assessment Date Thrive assessed 04/08/25 04/08/25 11:20 Currently or been in a relationship where the following occur: No concerns reported Coding Level of Care Code Est Pt Level 3 (71830) Diagnoses Smoker F17.200 HTN (hypertension) I10 Diabetes E11.9 Additional Codes LINETTE-7 Assessment Billing - LINETTE-7 Assessment Tool: LINETTE-7 Assessment 11770 ([id number]) PHQ-9 - 89010 - PHQ-9 Billing: Yes ([id number]) Assessment & Plan Assessment & Plan (1) Smoker: Code(s): F17.200 - Nicotine dependence, unspecified, uncomplicated Category: Social Hx (2) HTN (hypertension): Code(s): I10 - Essential (primary) hypertension Category: Medical (3) Diabetes: Code(s): E11.9 - Type 2 diabetes mellitus without complications Category: Medical Plan . Orders: Orders Comprehensive [place]. Panel Fast Today E11.9 - Type 2 diabetes mellitus without complications UA CC w/rflx Micro + Cult Today E11.9 - Type 2 diabetes mellitus without complications Hemoglobin A1c Today E11.9 - Type 2 diabetes mellitus without complications MM screening mammo BI Today Z12.31 - Encounter for screening mammogram for mal ignant neoplasm of breast US carotid duplex BI Today E11.9 - Type 2 diabetes mellitus without complications, F17.200 - Nicotine dependence, unspecified, uncomplicated, I10 - Essential (primary) hypertension US abdominal aortic aneurysm Today E11.9 - Type 2 diabetes mellitus without complications, F17.200 - Nicotine dependence, unspecified, uncomplicated Complete Blood Count Auto Diff Today E11.9 - Type 2 diabetes mellitus without complications TSH reflex Free T4 Today E11.9 - Type 2 diabetes mellitus without complications Lipid Panel Today E11.9 - Type 2 diabetes mellitus without complications Medications: New nicotine (Nicoderm CQ) 1 patch transdermal DAILY 28 ea 0RF
[2025-02-26 11:17] VITALS: BP 120/80; PULSE 91; O2SAT 98; BMI 23.6
== END 2025-02-26 12:45 | disposition home or self-care (01) ==
PROVIDERS: PCP Nurse Practitioner Family; Visit Provider Nurse Practitioner Family
DX: F17.200 Nicotine dependence, unspecified, uncomplicated (principal); I10 Essential (primary) hypertension; E11.9 Type 2 diabetes mellitus without complications

== ENCOUNTER → 2025-02-26 11:06 | Outpatient (BNVA) | payer OTHER, SELFPAY | PROVIDERS: PCP Nurse Practitioner Family; Visit Provider Nurse Practitioner Family | DX: I10 Essential (primary) hypertension (principal); E11.9 Type 2 diabetes mellitus without complications; F17.200 Nicotine dependence, unspecified, uncomplicated; Z71.6 Tobacco abuse counseling | CPT/HCPCS: 96127; 99212 ==

== ENCOUNTER 2025-03-12 07:02 | Outpatient (REF) | payer OTHER, SELFPAY ==
--- OUTSIDE RECORDS SUMMARY | 2025-03-12 07:04 | XMS_ITS | Clinical Summary ---
Author Organization [employer] Address [address] [place] [address] Care Team Providers Care Campground Hand Name Role Phone Unavailable Primary Care Provider Unavailabl e Social History Tobacco Use Types Packs/Day Years Used Date Smoking Tobacco: Never Assessed Comments Unknown Sex and Gender Information Value Date Recorded Sex Assigned at Female 06/16/2023 10:34 AM EDT Legal Sex Female 10:28 AM EDT Gender Identity Female 06/16/2023 10:34 AM EDT Sexual Orientation Don't know 06/16/2023 10 :34 AM EDT Plan of Treatment Health Maintenance Due Date Last Done Comments CT Colonography 1960 Colonoscopy 1960 Colorectal Cancer Screening 1960 Depression Screening 1960 FIT DNA/Cologuard 1960 FIT 1960 FOBT 1960 HIV Screening 1960 SDOH Screening 1960 Sigmoidoscopy 1960 Alcohol/Substance Use Screening 1972 Tobacco Screening 1972 Hepatitis C Screening 1978 DTaP/Tdap/Td Vaccines (1 - Tdap) 1979 Pap Smear 1981 Cervical Cancer Screening 1990 HPV/Cotest 1990 Mammogram 2000 Pneumococcal Vaccine: 50+ Ye ars (1 of 1 - PCV) 2010 Zoster Vaccines (1 of 2) 2010 COVID-19 Vaccine ( - 2023-2 5 season) 2024 Influenza Vaccine (#1) 2024 RSV Patients and Pa tients Aged 60 years or older (1 - 1-dose 75+ series) 2035 HIB Vaccines Aged Out No longer eligi ble based on patient's age to complete this topic HPV Vaccines Aged Out No longer eligi ble based on patient's age to complete this topic Hepatitis A Vaccines Aged Out No long er eligible based on patient's age to complete this topic Hepatitis B Vaccines Aged Out No long er eligible based on patient's age to complete this topic IPV Vaccines Aged Out No longer eligi ble based on patient's age to complete this topic Meningococcal Vaccine Aged Out No mica mariano eligible based on patient's age to complete this topic RSV under 20 months Aged Out No longe r eligible based on patient's age to complete this topic Rotavirus Vaccines Aged Out No longer eligible based on patient's age to complete this topic Insurance [facility]
[2025-03-12 10:04] LABS: Appearance Urine Turbid; Color Urine Yellow; Glucose Urine UA >=1000 mg/dL (Negative); Leukocyte Esterase Urine Moderate (2+) (Negative); Nitrite Urine Negative (Negative); PH 5.5 (5.0-9.0); Specific Gravity - Urine >= 1.030 (1.005-1.025); UMIC TRIGGER UACC YES; Urine Blood Moderate (2+) (Negative); Urine Ketones Trace mg/dL (Negative); Urine Protein Trace mg/dL (Neg-Trace)
[2025-03-12 10:06] LABS: MANUAL DIFF FLAG NO
[2025-03-12 10:07] LABS: Bacteria Urine 2+ (None Seen); Hyaline Casts Urine 0-2 /LPF (0-2); UACC Culture Trigger YES; WBC Urine 21-50 /HPF (0-5)
[2025-03-12 10:25] LABS: Basophils Absolute Auto 0.1 X10*3/uL (0.0-0.2); Basophils Percent Auto 1.4 % (0-2); Eosinophils Absolute Auto 0.5 X10*3/uL (0.0-0.4); Eosinophils Percent Auto 6.7 % (0-4); Hematocrit 45.7 % (37.0-47.0); Hemoglobin 15.3 g/dl (12.0-16.0); Imm Gran Abs Auto 0.01 X10*3/uL (0.00-0.03); Imm Gran Pct Auto 0.1 % (0.0-0.4); Lymphocytes Absolute Auto 3.2 X10*3/uL (1.2-4.9); Lymphocytes Percent Auto 41.2 % (20-40); Mean Corpuscular HGB Conc 33.5 g/dl (31.0-35.0); Mean Corpuscular Volume 92.5 fL (80.0-98.0); Mean Platelet Volume 10.2 fL (9.4-12.3); Monocytes Absolute Auto 0.7 X10*3/uL (0.1-1.2); Monocytes Percent Auto 8.8 % (2-11); Neutrophils Absolute Auto 3.2 x10*3/uL (2.0-8.3); Neutrophils Percent Auto 41.8 % (45-73); Platelet Count 222 X10*3/uL (160-400); Red Blood Count 4.94 X10*6/uL (4.20-5.50); Red Cell Distribution Width 12.7 % (11.0-16.0); White Blood Count 7.7 X10*3/uL (4.8-10.8)
[2025-03-12 10:33] LABS: Estimated Average Glucose 128 mg/dL; Hemoglobin A1c % 6.1 % (<6.0); Total Hemoglobin (HGBA1C) 3818.1217 umol/L
[2025-03-12 10:43] LABS: Alanine Aminotransferase 20 U/L (0-31); Albumin Level 4.1 g/dL (3.5-5.0); Alkaline Phosphatase 75 U/L (39-117); Anion Gap 10 (12-20); Aspartate Amino Transferase 26 U/L (5-31); Bilirubin Total 0.4 mg/dL (0.0-1.0); Blood Urea Nitrogen 14 mg/dL (9-16); Calcium 9.6 mg/dL (8.4-10.2); Carbon Dioxide 28 mmol/L (22-29); Chloride 106 mmol/L (96-108); Cholesterol 120 mg/dL (<200); Estimated Glomerular Filt Rate 59; Glucose Fasting 112 mg/dL (60-99); HDL Cholesterol 42 mg/dL (>40); LDL Cholesterol Calculated 55 mg/dL (<100); Potassium 4.1 mmol/L (3.3-5.1); Sodium 140 mmol/L (135-145); Total Protein 6.9 g/dL (6.5-8.0); Triglycerides 115 mg/dL (<150)
== END 2025-03-12 07:03 | disposition home or self-care (01) ==
LOC: HO.HMGCLDS 07:02
PROVIDERS: PCP Nurse Practitioner Family; Visit Provider Nurse Practitioner Family
DX: E11.9 Type 2 diabetes mellitus without complications (principal)
CPT/HCPCS: 36415; 80053; 80061; 81001; 81003; 83036; 84443; 85025; 87086

== ENCOUNTER 2025-03-19 10:16 | Outpatient (REF) | payer OTHER, SELFPAY ==
--- NOTE | ~2025-03-19 | US_ITS ---
EXAMINATION: BILATERAL CAROTID ULTRASOUND WITH DOPPLER HISTORY: F17.200 - Nicotine dependence, unspecified, uncomplicated COMPARISON: There are no prior studies for comparison. TECHNIQUE: Real time and Color and Spectral doppler ultrasonography of the carotid and vertebral arteries was performed in multiple planes. FINDINGS: There is a large amount of plaque in the right internal carotid artery. There is a small amount of plaque in the left internal carotid artery. VERTEBRAL FLOW DIRECTION: Antegrade bilaterally. PEAK SYSTOLIC VELOCITIES (in cm/sec): RIGHT: CCA: Prox: 87.9 Dist: 82.7 ICA: Prox: 296 Mid: 178 Dist: 138 ICA/CCA Ratio: 3.4 ECA: 117 Peak ICA EDV: 98.8 LEFT: CCA: Prox: 120 Dist: 89.1 ICA: Prox: 87.4 Mid: 108 Dist: 93.2 ICA/CCA Ratio: 0.90 ECA: 105 Peak ICA EDV: 37.5 US/US carotid duplex BI IMPRESSION: 1. Findings consistent with 50-79% stenosis of the right internal carotid artery. 2. Findings consistent with 0-49% stenosis of the left internal carotid artery. Electronically signed by: Jonathan Maguire MD 03/20/2025 03:11 PM EDT
--- OUTSIDE RECORDS SUMMARY | 2025-03-19 11:43 | XMS_ITS | Clinical Summary ---
Author Organization [employer] Address [address] [place] [address] Care Team Providers Care Toll Operator Name Role Phone Unavailable Primary Care Provider [...] patient's age to complete this topic Insurance [facility]
== END 2025-03-19 10:17 | disposition home or self-care (01) ==
LOC: HO.HMGCX 10:16
PROVIDERS: PCP Nurse Practitioner Family; Visit Provider Nurse Practitioner Family
DX: I10 Essential (primary) hypertension (principal); E11.9 Type 2 diabetes mellitus without complications; F17.200 Nicotine dependence, unspecified, uncomplicated
CPT/HCPCS: 93880

== ENCOUNTER → 2025-03-19 10:20 | Outpatient (BNV) | payer OTHER, SELFPAY | PROVIDERS: PCP Nurse Practitioner Family; Visit Provider Radiology Diagnostic Radiology | DX: I65.23 Occlusion and stenosis of bilateral carotid arteries (principal); F17.200 Nicotine dependence, unspecified, uncomplicated | CPT/HCPCS: 93880 ==

== ENCOUNTER 2025-03-27 11:15 | Outpatient (AMB) | payer OTHER, SELFPAY ==
[2025-03-27 11:28] VITALS: BP 120/82; BMI 23.6
--- NOTE | 2025-03-27 11:28 | A.OFFVIS_ITS ---
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 No complaints. Last Pap/HPV was in 1998 Last Mammogram was BI-RADS 1 in 09/12 No previous screening Colonoscopy Last DEXA scan was in 09/12 [facility] Medical History Pre-diabetes Surgical History Hx of tubal ligation Hx of cystoscopy Social History Household Members: Spouse Housing: Apartment Alcohol intake: current Alcohol intake frequency: holidays/special occasions only Patient Tobacco Use Status: Current everyday Tobacco user Cigarette Packs Per Day: 1 Years Smoked: 48 e-Cigarette/Vaping Use: Never Used Second Hand Smoke Exposure: Yes service: No Current occupational status: retired Sexually active: Yes Sexual orientation: Straight/Heterosexual Gender identity: Female Cognitive needs: No Hearing needs: No Vision needs: No Female Reproductive History Menstrual Total pregnancies: 3 Full term: 3 Number of Living Children: 2 Date of Mammogram: 09/09/23 Review of Systems Const All systems reviewed & are unremarkable except as noted in HPI and below Card Reports as per HPI Resp Reports as per HPI GI Reports as per HPI and Reports no additional complaints Reports as per HPI Physical Exam Vital Signs: BMI result Body Mass Index 23.6 Const General: cooperative, healthy appearing and comfortable Chest Chest palpation & inspection: normal inspection of the chest and normal palpation of entire chest wall Breast/axilla inspection: normal inspection of the breasts and normal inspection of the axillae Breast/axilla palpation: normal palpation of the breasts, normal palpation of the axillae and no axillary lymphadenopathy Resp Effort & Inspection: normal respiratory effort Auscultation: clear to auscultation bilaterally Percussion: percussion normal Cardio Palpation: normal PMI Rate: regular rate Rhythm: regular rhythm Heart sounds: no murmurs and no rubs Peripheral pulses: Peripheral pulses 2+ throughout GI Inspection: Yes normal to inspection Palpation (GI): Soft to palpation, nontender, no guarding, not rigid and No hepatosplenomegaly present Percussion: Yes normal to percussion Auscultation: normal bowel sounds Rectal Exam - Female: deferred General: Yes bladder normal to palpation External Female Exam: No lesion Speculum Exam - Vagina: normal appearance of the vagina, normal palpation, normal vaginal discharge and not erythematous Speculum Exam - Cervix: normal appearance of the cervix and normal palpation Bimanual exam- vagina & uterus: normal bimanual exam, normal palpation, uterine size normal, bladder normal to palpation, consistency normal and normal palpation Bimanual Exam- Adnexa, other: normal adnexae, no masses and no tenderness Assessment & Plan Assessment & Plan (1) Well woman exam: Code(s): Z01.419 - Encounter for gynecological examination (general) (routine) without abnormal findings Category: Medical Plan: Co testing done. Counseled the patient about the recommended dietary allowance of 1200 mg of Calcium & 600 IU of vitamin D. Mammogram scheduled in few weeks The patient was referred to GI for screening colonoscopy . The patient was instructed to perform monthly self-breast exams and schedule annual exam in a year. All questions answered and the patient verbalized understanding. Orders: Referrals Gastroenterology Referral Z12.11 - Encounter for screening for malignant neoplasm of colon Coding Level of Care Code New Pt Prev Care 40-64y(17148) Diagnoses Well woman exam Z01.419
--- OUTSIDE RECORDS SUMMARY | 2025-03-27 12:44 | XMS_ITS | Clinical Summary ---
Author Organization [employer] Address [address] [facility] [address] [place] [address] Care Team Providers Care Mobile Equipment Mechanic Name Role Phone Unavailable Primary Care Provider [...] patient's age to complete this topic Insurance [facility]
== END 2025-03-27 11:47 | disposition home or self-care (01) ==
PROVIDERS: PCP Nurse Practitioner Family; Visit Provider Obstetrics & Gynecology
DX: Z01.419 Encounter for gynecological examination (general) (routine) without abnormal findings (principal)
CPT/HCPCS: 99386; 99459

== ENCOUNTER 2025-03-27 11:15 | Outpatient (REF) | payer OTHER, SELFPAY ==
--- OUTSIDE RECORDS SUMMARY | 2025-03-27 13:25 | XMS_ITS | Clinical Summary ---
Author Organization [employer] Address [address] [facility] [address] [place] [address] Care Team Providers Care Solid Propellant Processor Name Role Phone Unavailable Primary Care Provider [...] to complete this topic Insurance [facility]
[2025-04-03 10:22] LABS: HPV Genotype 16 Negative (Negative); HPV Genotype 18 Negative (Negative); HPV High Risk Negative (Negative)
== END 2025-03-27 11:16 | disposition home or self-care (01) ==
LOC: HO.LNP 11:15
PROVIDERS: PCP Nurse Practitioner Family; Visit Provider Obstetrics & Gynecology
DX: Z01.419 Encounter for gynecological examination (general) (routine) without abnormal findings (principal)
CPT/HCPCS: 87626; 88175; 99386; 99459

== ENCOUNTER 2025-04-04 09:15 | Outpatient (AMB) | payer OTHER, SELFPAY ==
[2025-04-04 09:17] VITALS: BP 124/88; BMI 23.6
--- NOTE | 2025-04-04 09:17 | A.OFFVIS_ITS ---
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 This was identified via ultrasound conducted due to her smoking history, showing 0-49% stenosis on the left side and 50-79% stenosis on the right. She denies symptoms indicative of stroke or transient ischemic attack, including any visual disturbances, speech changes, or limb numbness. Her smoking habit has been a pack per day, though she is trying to quit with nicotine patches. She also has a history of prediabetes but is not on insulin or other medications. She is being maintained on an aspirin and statin. She now presents to us for vascular evaluation. [facility] Medical History Pre-diabetes Surgical History Hx of tubal ligation Hx of cystoscopy Social History Household Members: Spouse Housing: Apartment Alcohol intake: current Alcohol intake frequency: holidays/special occasions only Patient Tobacco Use Status: Current everyday Tobacco user Cigarette Packs Per Day: 1 Years Smoked: 48 e-Cigarette/Vaping Use: Never Used Second Hand Smoke Exposure: Yes service: No Current occupational status: retired Sexual orientation: Straight/Heterosexual Gender identity: Female Cognitive needs: No Hearing needs: No Vision needs: No Review of Systems Const All systems reviewed & are unremarkable except as noted in HPI and below Reports no additional complaints ENT Reports Normal hearing present Card Denies chest pain, Denies chest pain at rest, Denies chest pain with activity and Denies pedal edema Resp Denies cough GI Denies abdominal pain Musc Denies abnormal gait, Denies muscle cramps and Denies radiating pain into limb Skin/Breast Denies skin ulcer and Denies wounds Neuro Reports Normal hearing present and Denies abnormal gait Psych Reports no additional complaints Physical Exam Vital Signs: Last Vital Signs BP 120/80 04/04/25 09:25 BMI result Body Mass Index 23.6 Const General: cooperative, healthy appearing and comfortable Orientation/consciousness: oriented to person, oriented to place and oriented to time HEENT Head: Yes normal to inspection Neck Neck: Yes normal visual inspection Carotids: no bruits Chest Chest palpation & inspection: normal inspection of the chest Resp Effort & Inspection: normal respiratory effort and able to speak in complete sentences Auscultation: clear to auscultation bilaterally, no crackles, no rales, no rhonchi and no wheezes Cardio Rate: regular rate Rhythm: regular rhythm Heart sounds: S1 normal heart sound present and S2 normal heart sound present Bruits: no carotid bruits Peripheral pulses: Peripheral pulses 2+ throughout GI Inspection: Yes normal to inspection Skin Wounds: no wounds Hair: normal Neuro General: oriented to person, oriented to place and oriented to time Cranial nerves: Yes CN's II-XII intact bilaterally and Yes Normal hearing present Cognition (Neuro): normal cognition Motor exam (neuro): 5/5 motor strength present throughout Extrem Other: venous exam: No significant superficial varicosities or spider tel angiectasias, minimal edema General: No clubbing, No cyanosis and No edema Psych Appearance: grossly normal Mental Status: mental status grossly normal Speech and movement: Normal speech and movement present Assessment & Plan Assessment & Plan (1) Bilateral carotid artery stenosis: Code(s): I65.23 - Occlusion and stenosis of bilateral carotid arteries Category: Medical Plan: I informed the patient about her carotid artery stenosis and the need for a CT angiogram with contrast to confirm the degree of blockage observed on ultrasound. We discussed stroke prevention as the primary goal, with potential treatment if critical stenosis is confirmed. I explained smoking cessation's role in managing cardiovascular risk and advised nicotine patches to assist. The need for kidney function tests prior to contrast use was discussed, along with the coordination necessary due to her insurance change. The patient was informed about scheduling follow-up based on the CT angiogram results. Orders: Orders Blood Urea Nitrogen Today I65.29 - Occlusion and stenosis of unspecified carotid artery Creatinine Today I65.29 - Occlusion and stenosis of unspecified carotid artery CT angio neck 1 Week I65.23 - Occlusion and stenosis of bilateral carotid arteries Coding Level of Care Code New Pt Level 4 (35346) Complex EM visit Add On G2211 Diagnoses Bilateral carotid artery stenosis I65.23
[2025-04-04 09:25] VITALS: BP 120/80
--- OUTSIDE RECORDS SUMMARY | 2025-04-04 09:51 | XMS_ITS | Clinical Summary ---
Author Organization [email or web address] Address [address] [facility] [address] [place] [address] Care Team Providers Care Air Control Electronics Operator Name Role Phone Unavailable Primary Care [...] patient's age to complete this topic Insurance [facility]
== END 2025-04-04 10:02 | disposition home or self-care (01) ==
LOC: HO.HVS 09:16
PROVIDERS: PCP Nurse Practitioner Family; Visit Provider Surgery Vascular Surgery
DX: I65.23 Occlusion and stenosis of bilateral carotid arteries (principal)
CPT/HCPCS: 99204; G2211

== ENCOUNTER → 2025-04-04 09:15 | Outpatient (BNVA) | payer OTHER, SELFPAY | PROVIDERS: PCP Nurse Practitioner Family; Visit Provider Surgery Vascular Surgery | DX: I65.23 Occlusion and stenosis of bilateral carotid arteries (principal) | CPT/HCPCS: 99202 ==

== ENCOUNTER 2025-04-08 07:39 | Outpatient (REF) | payer OTHER, SELFPAY ==
[2025-04-08 10:47] LABS: Blood Urea Nitrogen 16 mg/dL (9-16); Estimated Glomerular Filt Rate > 60
== END 2025-04-08 07:40 | disposition home or self-care (01) ==
LOC: HO.HMGCLDS 07:39
PROVIDERS: PCP Nurse Practitioner Family; Visit Provider Surgery Vascular Surgery
DX: I65.29 Occlusion and stenosis of unspecified carotid artery (principal)
CPT/HCPCS: 36415; 82565; 84520

== ENCOUNTER 2025-04-18 11:20 | Outpatient (REF) | payer OTHER, SELFPAY ==
--- NOTE | ~2025-04-18 | CT_ITS ---
CLINICAL HISTORY: I65.23 - Occlusion and stenosis of bilateral carotid arteries --- Additional Notes or Special Instructions: Evaluation of carotid stenosis CT angiography neck with contrast. 3D Postprocessing. Comparison: None Findings: There is greater than 90% stenosis of the origin of the right ICA related predominantly to noncalcified plaque. Aortic arch and cervical great vessels are otherwise patent with no aneurysm, dissection, hemodynamically significant stenoses, or occlusion. Visualized intracranial arteries are patent. No aneurysm, dissection, hemodynamically significant stenoses, or occlusion. The visualized thyroid gland is unremarkable. No cervical mass or fluid collection. Lung apices clear. No acute fracture. IMPRESSION: Greater than 90% stenosis at the origin of the right ICA This document has been electronically signed by: Xu King MD on 04/19/2025 09:37:13
--- OUTSIDE RECORDS SUMMARY | 2025-04-18 11:43 | XMS_ITS | Clinical Summary ---
Author Organization [email or web address] Address [address] [facility] [address] [place] [address] Care Team Providers Care Seismographer Name Role Phone Unavailable Primary Care Provider [...] Screening 1960 SDOH Screening 1960 Sigmoidoscopy 1960 Disability Screening 1960 Alcohol/Substance Use Screening 1972 Tobacco Screening [...] patient's age to complete this topic Meningococcal B Vaccine Aged Out No l onger eligible based on patient's age to complete this topic Meningococcal Vaccine Aged Out No mica mariano eligible based on patient's age to complete this topic RSV under 20 months Aged Out No longe r eligible based on patient's age to complete this topic Rotavirus Vaccines Aged Out No longer eligible based on patient's age to complete this topic Insurance [facility]
[2025-04-18] MEDS: iohexoL 350 MG/ML 100 ML INFUS..BTL IV (12:40)
== END 2025-04-18 11:21 | disposition home or self-care (01) ==
LOC: HO.CT 11:20
PROVIDERS: PCP Nurse Practitioner Family; Visit Provider Surgery Vascular Surgery
DX: I65.23 Occlusion and stenosis of bilateral carotid arteries (principal)
CPT/HCPCS: 70498; Q9967

== ENCOUNTER → 2025-04-18 11:21 | Outpatient (BNV) | payer OTHER, SELFPAY | PROVIDERS: PCP Nurse Practitioner Family; Visit Provider Specialist | DX: I65.21 Occlusion and stenosis of right carotid artery (principal) | CPT/HCPCS: 70498 ==

== ENCOUNTER 2025-04-19 15:47 | Outpatient (REF) | payer OTHER, SELFPAY ==
--- OUTSIDE RECORDS SUMMARY | 2025-04-19 15:49 | XMS_ITS | Clinical Summary ---
Author Organization [employer] Address [address] [facility] [address] [place] [address] Care Team Providers Care Sneller Hand Name Role Phone Unavailable Primary Care [...] to complete this topic Insurance [facility]
== END 2025-04-19 15:48 | disposition home or self-care (01) ==
LOC: HO.MAMMO 15:47
PROVIDERS: PCP Nurse Practitioner Family; Visit Provider Nurse Practitioner Family
DX: Z12.31 Encounter for screening mammogram for malignant neoplasm of breast (principal)
CPT/HCPCS: 77063; 77067

== ENCOUNTER → 2025-04-19 16:00 | Outpatient (BNV) | payer OTHER, SELFPAY | PROVIDERS: PCP Nurse Practitioner Family; Visit Provider Internal Medicine | DX: Z12.31 Encounter for screening mammogram for malignant neoplasm of breast (principal) | CPT/HCPCS: 77063; 77067 ==

== ENCOUNTER 2025-04-23 09:45 | Outpatient (AMB) | payer MEDICARE, OTHER, SELFPAY ==
--- NOTE | 2025-04-23 10:01 | MHC.OFFVIS ---
Intake Visit Reasons: follow up CTA Neck 04/18/25 Intake Note: Patient presents for follow up CTA. No complaints. Accompanied by: Self / Same As Patient Allergies No Known Allergies [No Known Allergies*] Allergy (Verified 04/23/25 10:03) [facility] HPI follow up CTA Neck 04/18/25: Details: The patient is a 64-year-old female presenting with carotid artery stenosis. A recent CT scan revealed that the patient's right carotid artery has a nearly 90% stenosis, a more significant blockage than initially observed via ultrasound. This level of stenosis raises concern for stroke risk, necessitating surgical intervention to clean out the carotid artery and prevent cerebrovascular events. There have been no reported symptoms such as transient ischemic attacks thus far. Of note she is quite active. She currently is able to walk distances with no difficulty. She can climb 2 flights of stairs with no issues. 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 Of note she does have a son that lives nearby. REPLACED BY [facility] Medical History Pre-diabetes Surgical History Hx of tubal ligation Hx of cystoscopy Social History Household Members: Spouse Housing: Apartment Alcohol intake: current Alcohol intake frequency: holidays/special occasions only Patient Tobacco Use Status: Current everyday Tobacco user Cigarette Packs Per Day: 1 Years Smoked: 48 e-Cigarette/Vaping Use: Never Used Second Hand Smoke Exposure: Yes service: No Current occupational status: retired Sexual orientation: Straight/Heterosexual Gender identity: Female Cognitive needs: No Hearing needs: No Vision needs: No Review of Systems Const All systems reviewed & are unremarkable except as noted in HPI and below Reports no additional complaints ENT Reports Normal hearing present Card Denies chest pain, Denies chest pain at rest, Denies chest pain with activity and Denies pedal edema Resp Denies cough GI Denies abdominal pain Musc Denies abnormal gait, Denies muscle cramps and Denies radiating pain into limb Skin/Breast Denies skin ulcer and Denies wounds Neuro Reports Normal hearing present and Denies abnormal gait Psych Reports no additional complaints Physical Exam Const General: cooperative, healthy appearing and comfortable Orientation/consciousness: oriented to person, oriented to place and oriented to time HEENT Head: Yes normal to inspection Neck Neck: Yes normal visual inspection Carotids: no bruits Chest Chest palpation & inspection: normal inspection of the chest Resp Effort & Inspection: normal respiratory effort and able to speak in complete sentences Auscultation: clear to auscultation bilaterally, no crackles, no rales, no rhonchi and no wheezes Cardio Rate: regular rate Rhythm: regular rhythm Heart sounds: S1 normal heart sound present and S2 normal heart sound present Bruits: no carotid bruits Peripheral pulses: Peripheral pulses 2+ throughout GI Inspection: Yes normal to inspection Skin Wounds: no wounds Hair: normal Neuro General: oriented to person, oriented to place and oriented to time Cranial nerves: Yes CN's II-XII intact bilaterally and Yes Normal hearing present Cognition (Neuro): normal cognition Motor exam (neuro): 5/5 motor strength present throughout Extrem Other: venous exam: No significant superficial varicosities or spider telangiectasias, minimal edema General: No clubbing, No cyanosis and No edema Psych Appearance: grossly normal Mental Status: mental status grossly normal Speech and movement: Normal speech and movement present Results Reviewed Results Reviewed: CT scan results dated 04/18/2025 demonstrates right-sided carotid stenosis greater than 90%. Assessment & Plan Assessment & Plan (1) Carotid stenosis, right: Code(s): I65.21 - Occlusion and stenosis of right carotid artery Category: Medical Plan: In short patient has high-grade right carotid stenosis. Patient will require right carotid endarterectomy. Risks benefits complications including but not limited to bleeding infection stroke and were discussed in detail with the patient. She understood and would like to move forward. She will require cardiac risk stratification prior to surgery. Thank you for allowing us to assist in her care. If there are any questions or concerns please do not hesitate to contact us. Coding Level of Care Code Est Pt Level 4 (17349) Diagnoses Carotid stenosis, right I65.21
--- OUTSIDE RECORDS SUMMARY | 2025-04-23 10:55 | XMS_ITS | Clinical Summary ---
Author Organization [employer] Address [address] [facility] [address] [place] [address] Care Team Providers Care Evaluation Manager Name Role Phone Unavailable Primary Care Provider [...] - 2023-2 5 season) 2024 Influenza Vaccine (Season Ended) 2025 RSV Patients and Pa tients Aged 60 [...] age to complete this topic Insurance [facility]
== END 2025-04-23 10:54 | disposition home or self-care (01) ==
PROVIDERS: PCP Nurse Practitioner Family; Visit Provider Surgery Vascular Surgery
DX: I65.21 Occlusion and stenosis of right carotid artery (principal)
CPT/HCPCS: 99214

== ENCOUNTER → 2025-04-23 09:45 | Outpatient (BNVA) | payer OTHER, SELFPAY | PROVIDERS: PCP Nurse Practitioner Family; Visit Provider Surgery Vascular Surgery | DX: I65.21 Occlusion and stenosis of right carotid artery (principal); F17.210 Nicotine dependence, cigarettes, uncomplicated | CPT/HCPCS: 99212 ==

== ENCOUNTER 2025-04-25 13:12 | Outpatient (AMB) | payer MEDICARE, OTHER, SELFPAY ==
--- NOTE | 2025-04-25 13:27 | A.OFFVIS_ITS ---
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 Allergies No Known Allergies [No Known Allergies*] Allergy (Verified 04/23/25 10:03) Medication List - Last Reconciled 04/25/25 by Clif Owen MD alcohol swabs (Alcohol Pads) 1 pad topically; aspirin (Adult Aspirin Regimen) 81 mg PO DAILY 90 days atorvastatin 40 mg PO BEDTIME calcium carbonate-vitamin D3 600 mg-12.5 mcg (500 unit) 1 cap PO BID 90 days empagliflozin (Jardiance) 10 mg PO DAILY hydrochlorothiazide 12.5 mg PO DAILY 90 days lancets (SeaDragon SoftwareTouch Delica Plus Lancet) Test blood sugar twice a day losartan 25 mg PO DAILY 90 days OneTouch Ultra Test (blood sugar diagnostic) BID testing NS OneTouch Ultra2 Meter (blood-glucose meter) BID testing NS HPI Comments Details: Chaparrita is here for consultation regarding preoperative risk stratification for carotid surgery. She has got multiple cardiovascular risk factors including smoking, diabetes, dyslipidemia. It seems that she had a screening carotid ultrasound which was abnormal leading to CTA. She has been Holter have hemodynamically significant right carotid stenosis and awaiting surgery for the same. From the cardiac standpoint, there is no known coronary disease or myocardial infarction or anything else of concern. 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 Has not experienced anginal-type complaints. [facility] Medical History Pre-diabetes Surgical History Hx of tubal ligation Hx of cystoscopy Social History Household Members: Spouse Housing: Apartment Alcohol intake: current Alcohol intake frequency: holidays/special occasions only Patient Tobacco Use Status: Current everyday Tobacco user Cigarette Packs Per Day: 1 Years Smoked: 48 e-Cigarette/Vaping Use: Never Used Second Hand Smoke Exposure: Yes service: No Current occupational status: retired Sexual orientation: Straight/Heterosexual Gender identity: Female Cognitive needs: No Hearing needs: No Vision needs: No Review of Systems Const Denies weakness ENT Denies dizziness Card Denies chest pain, Denies chest pain with activity, Denies syncope, Denies rapid heart rate, Denies pedal edema, Denies edema, Denies leg edema, Denies lightheadedness, Denies palpitations, Denies dyspnea, Denies dyspnea on exertion and Denies orthopnea Resp Denies cough, Denies dyspnea and Denies dyspnea on exertion GI Denies hematochezia and Denies change in stool character Musc Denies abnormal gait, Denies muscle cramps, Denies muscle weakness, Denies numbness, Denies radiating pain into limb and Denies tingling Neuro Denies abnormal gait, Denies dizziness, Denies syncope, Denies numbness, Denies tingling and Denies weakness Endo Denies palpitations Physical Exam Vital Signs: Last Vital Signs Pulse 82 04/25/25 13:28 BP 122/70 04/25/25 13:28 BMI result Body Mass Index 23.0 Const General: comfortable and no acute distress Orientation/consciousness: patient oriented x3 HEENT Other: Unremarkable Head: Yes normal to inspection Neck Neck: Yes normal visual inspection Chest Chest palpation & inspection: normal inspection of the chest Resp Auscultation: clear to auscultation bilaterally Cardio Palpation: normal PMI Heart sounds: S1 normal heart sound present, S2 normal heart sound present, no gallops, no murmurs and no rubs GI Palpation (GI): Soft to palpation Back/Spine/Pelvis Other: unremarkable Skin General skin exam: no rashes or lesions noted Neuro General: patient oriented x3 Extrem General: Yes normal to inspection Psych Mental Status: mental status grossly normal Office Procedures EKG Details: EKG with underlying sinus rhythm at 82/Min; rightward axis; nonspecific ST-T changes; [place] [id number], Complete Assessment & Plan Assessment & Plan (1) Preoperative cardiovascular examination: Code(s): Z01.810 - Encounter for preprocedural cardiovascular examination Category: Medical (2) Carotid stenosis, right: Code(s): I65.21 - Occlusion and stenosis of right carotid artery Category: Medical (3) Smoker: Code(s): F17.200 - Nicotine dependence, unspecified, uncomplicated Category: Social Hx (4) Diabetes: Code(s): E11.9 - Type 2 diabetes mellitus without complications Category: Medical (5) HTN (hypertension): Code(s): I10 - Essential (primary) hypertension Category: Medical Plan Neck CTA shows > 90% stenosis at the origin of right internal carotid artery. Due to many risk factors and established vascular disease, we will plan on echocardiogram and stress test for further evaluation. Once these are reviewed, addendum can be made. Discussion Notes During the consultation, I explained to the patient about the necessity of a stress test to confirm her cardiovascular status before proceeding with surgery. We discussed potential risks associated with her identified vascular blockage and the importance of adequate preoperative evaluation. While managing her diabetes and hypertension, she agreed that the urgency of the cardiovascular assessment is crucial in light of her upcoming surgery. She was informed about the expected timeline for testing and the steps taken to expedite the process, understanding the significance for surgical safety. Patient was informed and verbally consented to the use of an ambient scribe for clinic note documentation during this visit. Orders: Orders CA stress test Today I25.10 - Atherosclerotic heart disease of [place]az[place] coronary artery without angina pectoris, Z01.810 - Encounter for preprocedural cardiovascular examination NM cardiolite stress test Today R07.2 - Precordial pain, Z01.810 - Encounter for preprocedural cardiovascular examination CA echo transthoracic complete Today I25.10 - Atherosclerotic heart disease of [place]az[place] coronary artery without angina pectoris, Z01.810 - Encounter for preprocedural cardiovascular examination Patient Instructions: - Attend all scheduled cardiovascular tests, including the stress test. - Continue regular management of diabetes and hypertension. - Do not smoke; consider smoking cessation supports. - Contact if experiencing chest pain, shortness of breath, or other concerning symptoms. - Be available for follow-up appointments leading to your surgery date. Coding Level of Care Code New Pt Level 4 (15998) Complex EM visit Add On G2211 Diagnoses Preoperative cardiovascular examination Z01.810 Carotid stenosis, right I65.21 Smoker F17.200 Diabetes E11.9 HTN (hypertension) I10 CPT Codes EKG - CPT: 90771-[id number], Complete ([id number])
[2025-04-25 13:28] VITALS: BP 122/70; PULSE 82; BMI 23.0
--- OUTSIDE RECORDS SUMMARY | 2025-04-25 15:31 | XMS_ITS | Clinical Summary ---
Author Organization [employer] Address [address] [facility] [address] [place] [address] Care Team Providers Care Pole Framer Name Role Phone Unavailable Primary Care Provider [...] to complete this topic Insurance [facility]
== END 2025-04-25 13:48 | disposition home or self-care (01) ==
LOC: HO.HCS 13:13
PROVIDERS: PCP Nurse Practitioner Family; Visit Provider Internal Medicine
DX: Z01.818 Encounter for other preprocedural examination (principal); I65.21 Occlusion and stenosis of right carotid artery; F17.200 Nicotine dependence, unspecified, uncomplicated; E11.9 Type 2 diabetes mellitus without complications; I10 Essential (primary) hypertension
CPT/HCPCS: 93010; 99204

== ENCOUNTER → 2025-04-25 13:12 | Outpatient (BNVA) | payer MEDICARE, OTHER, SELFPAY | PROVIDERS: PCP Nurse Practitioner Family; Visit Provider Internal Medicine | DX: Z01.810 Encounter for preprocedural cardiovascular examination (principal); I65.21 Occlusion and stenosis of right carotid artery; I10 Essential (primary) hypertension; E11.9 Type 2 diabetes mellitus without complications; F17.210 Nicotine dependence, cigarettes, uncomplicated | CPT/HCPCS: 93005; 99202 ==

== ENCOUNTER → 2025-04-26 12:45 | Outpatient (REF) | payer MEDICARE, SELFPAY ==
--- OUTSIDE RECORDS SUMMARY | 2025-04-26 12:48 | XMS_ITS | Clinical Summary ---
Author Organization [employer] Address [address] [facility] [address] [place] [address] Care Team Providers Care Molding Machine Tender Name Role Phone Unavailable Primary Care Provider [...] patient's age to complete this topic Insurance [facility]
--- NOTE | 2025-04-26 12:50 | CA_ITS ---
Transthoracic Echocardiogram Patient (Last, First, Middle): Chaparrita Rodriguez A Gender: Female Date of : 1960 Age: 64 Procedure Date: 04/26/2025 Procedure Type: Transthoracic Echocardiogram Location: OP Height: 157. cm Weight: 56.7 kg BSA: 1.56 m2 Heart Rate: bpm BP: 125 / 65 mmHg Thermostat Repairer: OSBALDO Referring MD: Clif Owen MD Symptoms: I25.10 - Atherosclerotic heart disease of [place] coronary artery without... Study Quality: Fair ECG Rhythm: Sinus Conclusions: - The left ventricular systolic function is normal. The calculated ejection fraction is 64% by biplane method. - No obvious valvular pathology seen on this study. Findings Left Ventricle Normal left ventricular cavity size. There is normal left ventricular wall thickness. The left ventricular systolic function is normal. The calculated ejection fraction is 64% by biplane method. There is no evidence of regional wall motion abnormalities. Diastolic function is normal for age. Right Ventricle Normal right ventricular cavity size and systolic function. Atria Both atria are normal in size. Aortic Valve The aortic valve was not well visualized. There is no aortic valve stenosis. There is no aortic valve regurgitation. Mitral Valve The mitral valve appears normal. There is no mitral valve regurgitation. There is no mitral valve stenosis. Pulmonic Valve The pulmonic valve is likely normal. Tricuspid Valve There is trace tricuspid valve regurgitation. There is no evidence of pulmonary hypertension. Great Vessels The asc aorta and aortic arch are normal in size. Venous The inferior vena cava is normal in size and collapses greater than 50% with inspiration. Pericardium/Pleural There is no evidence of pericardial effusion. Prior Study Comparison No prior study available for comparison. Recommendations, Care & Conclusions No obvious valvular pathology seen on this study. Measurements 2D Linear Measurements IVSd: 0.94 0.6-0.9/0.6-1.0 cm LVIDd: 3.50 3.9-5.3/4.2-5.9 cm LVIDd Index: 2.24 2.4-3.2/2.2-3.1 cm/m2 LVIDs: 1.69 2.0-3.6 cm LVPWd: 0.91 0.7-1.1 cm Ao Root: 3.20 2.1-3.5 cm LA Diam: 3.00 2.7-3.8/3.0-4.0 cm LAIDs Index: 1.92 1.5-2.3 cm/m2 LV Mass: 114.67 67-162/88-224 g LV Mass Index: 73.50 43-95/49-115 g/m2 LVOT Diam: 2.00 3.0+(-)1.3 cm 2D Systolic Function EF 4C: 63.50 >55% EF 2C: 61.30 >55% EF BiP: 64.00 >55% Mitral Valve MV Pk E: 0.81 MV PK A: 0.78 MV Decel Time: 227.00 E/A: 1.00 E'Lateral: 10.70 E'Medial: 8.27 E/E' Med: 9.70 E/E' Lat: 7.50 PHT: 67.00 MVA PHT: 3.28 Decel [place]: 3.54 Aortic Valve AoV Pk Julio Cesar: 1.32 AoV Mn Julio Cesar: 0.84 AoV VTI: 0.25 AoV Pk Grad: 7.00 Aov Mn Grad: 3.00 MATTHEW Cont.VTI: 2.50 LVOT LVOT Pk Julio Cesar: 1.03 LVOT Mn Julio Cesar: 0.67 LVOT VTI: 0.20 LVOT Pk Grad: 4.00 LVOT Mn Grad: 2.00 LVOT Diam: 2.00 LVOT Area: 3.14 Diastolic Function MV Pk E: 0.81 MV Pk A: 0.78 E/A: 1.00 E'Medial: 8.27 E/E' Med: 9.70 E' Laterial: 10.70 E/E' Lat: 7.50 Right Ventricle TAPSE (mm): 22.00 TVS' Julio Cesar: 11.00 Tricuspid Valve TR Pk Julio Cesar: 2.00 TR Pk Grad: 16.00 RA Press: 3.00 RVSP: 19.00 Great Vessels Aorta Ao Root-2D: 3.20 2.0-3.7 cm Ao Asc: 3.00 2.1-3.4 cm Ao Arch: 2.50 Pulmonary Valve PV Pk Julio Cesar: 0.84 Peak PV Grad: 3.00 Updated in Other Vendor System with Status of Final Clif Owen MD electronically signed on 04/29/2025 12:18:49 PM with status of Final
== END ==
LOC: HO.CARD 12:45
PROVIDERS: PCP Nurse Practitioner Family; Visit Provider Internal Medicine
DX: Z01.810 Encounter for preprocedural cardiovascular examination (principal); I25.10 Atherosclerotic heart disease of native coronary artery without angina pectoris
CPT/HCPCS: 93306

== ENCOUNTER → 2025-04-26 12:50 | Outpatient (BNV) | payer MEDICARE, SELFPAY | PROVIDERS: PCP Nurse Practitioner Family; Visit Provider Internal Medicine | DX: I25.10 Atherosclerotic heart disease of native coronary artery without angina pectoris (principal) | CPT/HCPCS: 93306 ==

== ENCOUNTER → 2025-04-30 09:46 | Outpatient (REF) | payer MEDICARE, SELFPAY ==
--- NOTE | ~2025-04-30 | NM_ITS ---
EXERCISE MYOCARDIAL PERFUSION STUDY INDICATION: Precordial chest pain to evaluate for myocardial ischemia TECHNIQUE: The patient was brought in for an exercise perfusion study on April 30, 2025. Patient performed exercise as per Dung protocol and was injected 25 mCi of sestamibi once target heart rate was achieved. Images were obtained using the SPECT gamma camera interlaced with the gating device. Images were obtained in supine position. Resting perfusion study was performed on May 01, 2025. Patient was administered 25 mCi of sestamibi intravenously at rest. Images were then obtained in supine position. Images obtained without without CT attenuation. Total DLP 77 mGy-cm. Images were processed with the software and compared side to side in short axis, horizontal long axis and vertical long axis views. FINDINGS: Raw images were reviewed The stress perfusion study showed both attenuated as well as nonattenuated corrected images show normal uptake of radiotracer in all segments of the LV myocardium. The gated study shows normal LV systolic function with calculated LVEF of 69%. LV cavity is normal in size. The gated study shows normal systolic wall thickening and contraction of segments. Resting study shows no change in perfusion pattern compared to stress perfusion study. Gating at rest reveals normal systolic wall motion with ejection fraction at 70%. The findings are consistent with normal myocardial perfusion. NM/NM cardiolite stress test IMPRESSION: 1. Myocardial perfusion imaging study shows normal myocardial perfusion. 2. Gated LVEF is 69%. 3. Transient ischemic dilatation not present. EKG revealed negative for ischemia. Electronically signed by: Jamison Mendoza MD 05/01/2025 05:08 PM EDT
--- NOTE | 2025-04-30 09:48 | CA_ITS ---
Acquisition Time: 2025-04-30 10:11:59 Total Exercise Time: 00:05:30 Test Indications: PREOP Medications: SEE H&P Protocol: SALLY Max HR: 142 BPM 91% of Pred: 156 BPM Max BP: 170/80 mmHG Max Work Load: 4.6 METS Exercise stress test with exercise 5 mins 30 secs of Sally Protocol, held at Stage 1 due to hip pain, achieving 91% MPHR, with reports of SOB, no chest pain, with isolated PVCs, with normotensive repsonse to exercise. Without EKG changes meeting criteria for ischemia. In recovery, breathing improved to baseline. Nuclear images pending. Test reviewed with Dr. Mendoza. Referred By: Clif Owen Electronically Signed By: Henri Black
--- OUTSIDE RECORDS SUMMARY | 2025-04-30 10:55 | XMS_ITS | Clinical Summary ---
Author Organization [employer] Address [address] [facility] [address] [place] [address] Care Team Providers Care Carton Filling Machine Operator Name Role Phone Unavailable Primary Care [...] patient's age to complete this topic Insurance [facility]
== END ==
LOC: HO.CARD 09:46
PROVIDERS: PCP Nurse Practitioner Family; Visit Provider Internal Medicine
DX: Z01.810 Encounter for preprocedural cardiovascular examination (principal); R07.2 Precordial pain; I25.10 Atherosclerotic heart disease of native coronary artery without angina pectoris
CPT/HCPCS: 78452; 93017; A9500

== ENCOUNTER → 2025-04-30 09:48 | Outpatient (BNV) | payer MEDICARE, SELFPAY | PROVIDERS: PCP Nurse Practitioner Family | DX: R06.02 Shortness of breath (principal); I49.3 Ventricular premature depolarization | CPT/HCPCS: 78452; 93016; 93018 ==

== ENCOUNTER 2025-05-20 06:33 | Inpatient (IN) | payer MEDICARE, SELFPAY ==
[2025-05-09 10:21] VITALS: BP 138/81; PULSE 73; RESP 18; O2SAT 96; BMI 23.6
--- NOTE | 2025-05-09 10:46 | HO.ANESPROP2 ---
Documented by User: Fatou Benitez NP 05/13/25 12:59 HPI - Anesthesia Eval Consult details Narrative: 64yo F for Right Carotid Endarterectomy, 05/20/25 Cardiac optimized. Preop risk stratifiaction by [facility] with nml echo and nuc stress No recent illness No CP/SOB with yard work, house work Asymptomatic carotid disease. Finding on screening imaging. DM: FBS ~ 80-100 Smoker: educated on periop risks and benefits of quitting Anesthesia Pre-Procedure Meds Is the patient on any of the following meds?: SGLT2 Inhib PMFSH Active Problems Active Problems: All Active Problems Preoperative cardiovascular examination (Acute) Carotid stenosis, right (Acute) Bilateral carotid artery stenosis (Acute) Well woman exam (Acute) Carotid stenosis (Acute) Vaginal bleeding (Acute) Screening for cervical cancer (Acute) Urinary frequency (Acute) Bladder wall thickening (Acute) Diabetes (Acute) Nephrolithiasis (Acute) Ingrown toenail of both feet (Acute) Microhematuria (Acute) Newly diagnosed diabetes (Acute) Smoker (Acute) HTN (hypertension) (Acute) Postmenopausal (Acute) Physical exam (Acute) Past Medical History Medical History Diabetes Elevated cholesterol HTN (hypertension) Hx of fracture of leg Pre-diabetes Family History Family history of problems with anesthesia: No Surgical History Surgical History Hx of tubal ligation Hx of cystoscopy History of Problems with Anesthesia: No Social History Social History Household Members: Spouse Housing: Apartment Alcohol intake: current Alcohol intake frequency: holidays/special occasions only Patient Tobacco Use Status: Current everyday Tobacco user Cigarette Packs Per Day: 1 Years Smoked: 48 e-Cigarette/Vaping Use: Never Used Second Hand Smoke Exposure: Yes Use of substances other than those prescribed or required for medical reasons: No Have you been hit, kicked, punched, or otherwise hurt by someone within the past year? If so, by whom?: No Are you DNR?: No Advance Directives: No Advance Directives Information Provided: Yes Advance Directives on File: No Patient : No : No service: No Current occupational status: retired Sexual orientation: Straight/Heterosexual Gender identity: Female Cognitive needs: No Hearing needs: No Vision needs: No Meds Allergies Allergy/AdvReac Type Severity Reaction Status Date / Time No Known Allergies (No Known Allergy Verified 05/20/25 06:19 Allergies*) Exam Height,Weight and Vital Signs: Height 5 ft 2 in Weight 58.513 kg Last Vital Signs Pulse 73 05/09/25 10:21 Resp 18 05/09/25 10:21 BP 138/81 05/09/25 10:21 Pulse Ox 96 05/09/25 10:21 O2 Del Method Room Air 05/09/25 10:21 Pertinent Lab Results Pertinent Lab Results: Lab Results 05/09/25 05/09/25 Range/Units 11:08 11:15 WBC 8.5 (4.8-10.8) X10*3/uL RBC 5.06 (4.20-5.50) X10*6/uL Hgb 16.0 (12.0-16.0) g/dl Hct 46.4 (37.0-47.0) % MCV 91.7 (80.0-98.0) fL MCH 31.6 (27.0-33.0) pg MCHC 34.5 (31.0-35.0) g/dl RDW 12.5 (11.0-16.0) % Plt Count 232 (160-400) X10*3/uL MPV 9.3 L (9.4-12.3) fL Absolute Nucleated RBC 0.000 (0.0-0.012) X10*3/uL Nucleated RBC % (auto) 0.0 (0.0-0.2) /100WBC PT 11.2 (10.9-12.4) SEC INR 1.0 (0.9-1.1) APTT 36.0 (26.0-36.8) SEC Sodium 140 (135-145) mmol/L Potassium 4.4 (3.3-5.1) mmol/L Chloride 104 (96-108) mmol/L Carbon Dioxide 28 (22-29) mmol/L Anion Gap 12 (12-20) BUN 12 (9-16) mg/dL Creatinine 0.85 (0.5-1.4) mg/dL Estim Creat Clear Calc 52.9 Estimated GFR > 60 Random Glucose 108 (60-115) mg/dL Calcium 10.1 (8.4-10.2) mg/dL Blood Type O Positive Antibody Screen NEGATIVE Narrative Narrative: EKG 04/2025 Details: EKG with underlying sinus rhythm at 82/Min; rightward axis; nonspecific ST-T changes; normal [place] and corrected QT. ECHO 04/2025 Conclusions: - The left ventricular systolic function is normal. The calculated ejection fraction is 64% by biplane method. - No obvious valvular pathology seen on this study. NM cardiolite stress test 04/2025 IMPRESSION: 1. Myocardial perfusion imaging study shows normal myocardial perfusion. 2. Gated LVEF is 69%. 3. Transient ischemic dilatation not present. EKG revealed negative for ischemia. Neck CTA 03/2025 IMPRESSION: Greater than 90% stenosis at the origin of the right ICA Airway Mallampati Class: III TM Dist: >3cm Neck ROM: Full Denture: Upper and Lower (Doesnt weat) Heart: RRR Lungs: CTAB Assessment and Plan Assessment Anesthesia Assessment: Anesthesia Plan Discussed, Smoking Cess. Discussed and PAT Visit Final Anesthetic Review Family History of Problems with Anesthesia: No History of Problems with Anesthesia: No Documented by User: Angélica Regalado MD 05/20/25 07:19 [facility] Past Medical History Medical History Diabetes Elevated cholesterol HTN (hypertension) Hx of fracture of leg Pre-diabetes Surgical History Surgical History Hx of tubal ligation Hx of cystoscopy Social History Social History Household Members: Spouse Housing: Apartment Alcohol intake: current Alcohol intake frequency: holidays/special occasions only Patient Tobacco Use Status: Current everyday Tobacco user Cigarette Packs Per Day: 1 Years Smoked: 48 e-Cigarette/Vaping Use: Never Used Second Hand Smoke Exposure: Yes Use of substances other than those prescribed or required for medical reasons: No Have you been hit, kicked, punched, or otherwise hurt by someone within the past year? If so, by whom?: No Are you DNR?: No Advance Directives: No Advance Directives Information Provided: Yes Advance Directives on File: No Patient : No : No service: No Current occupational status: retired Sexual orientation: Straight/Heterosexual Gender identity: Female Cognitive needs: No Hearing needs: No Vision needs: No Meds Allergies Allergy/AdvReac Type Severity Reaction Status Date / Time No Known Allergies (No Known Allergy Verified 05/20/25 06:19 Allergies*) Exam Airway Mallampati Class: II Denture: Upper Assessment and Plan Final Anesthetic Review NPO: Yes ASA Class: III Final Preanesthetic Review: No Changes in Pt Med Stat, Meds/Allgs Chart Reviewed and Consent Obtained/Reviewed Patient Risk: Intermediate Procedure Risk: Intermediate Anesthetic Plan Anesthetic Plan: GA Disposition: Standard PACU
[2025-05-09 11:48] LABS: Hematocrit 46.4 % (37.0-47.0); Hemoglobin 16.0 g/dl (12.0-16.0); Mean Corpuscular HGB Conc 34.5 g/dl (31.0-35.0); Mean Corpuscular Hemoglobin 31.6 pg (27.0-33.0); Mean Corpuscular Volume 91.7 fL (80.0-98.0); NRBC Abs Auto 0.000 X10*3/uL (0.0-0.012); NRBC Pct Auto 0.0 /100WBC (0.0-0.2); Platelet Count 232 X10*3/uL (160-400); Red Blood Count 5.06 X10*6/uL (4.20-5.50); White Blood Count 8.5 X10*3/uL (4.8-10.8)
[2025-05-09 11:50] LABS: INTERNATIONAL NORM RATIO 1.0 (0.9-1.1); Prothrombin Time 11.2 SEC (10.9-12.4)
[2025-05-09 11:53] LABS: Partial Thromboplastin Time 36.0 SEC (26.0-36.8)
[2025-05-09 12:07] LABS: Anion Gap 12 (12-20); Blood Urea Nitrogen 12 mg/dL (9-16); Calcium 10.1 mg/dL (8.4-10.2); Carbon Dioxide 28 mmol/L (22-29); Chloride 104 mmol/L (96-108); Creatinine Clr Calc Pharmacy 52.9; Estimated Glomerular Filt Rate > 60; Potassium 4.4 mmol/L (3.3-5.1); Sodium 140 mmol/L (135-145)
[2025-05-20] VITALS (20 sets, daily range): BP systolic 108–153; BP diastolic 57–108; PULSE 67–91; RESP 15–24; TEMP 36.2–37; O2SAT 93–99
--- OUTSIDE RECORDS SUMMARY | 2025-05-20 06:36 | XMS_ITS | Clinical Summary ---
Author Organization [employer] Address [address] [facility] [address] [place] [address] Care Team Providers Care Bilingual Call Center Representative Name Role Phone Unavailable Primary Care Provider [...] FIT DNA/Cologuard 1960 FIT 1960 FOBT 1960 SDOH Screening 1960 Sigmoidoscopy 1960 Alcohol/Substance [...] to complete this topic Insurance [facility] [place] [phone]
[2025-05-20] MEDS: Lactated Ringers 1,000 ML 100 ML IVCONT (06:41)
[2025-05-20 06:46] LABS: Glucose, Whole Blood 98 mg/dL (60-115)
--- NOTE | 2025-05-20 07:36 | PHA.MEDREC ---
Pharmacy Consult ? Medication Reconciliation Pharmacy has completed the medication reconciliation. Reviewed med rec done by nursing. Matches claims.
--- NOTE | 2025-05-20 07:38 | MHC.SHP ---
Pre-Procedural Eval Section A - 24 Hr Update-Section A only Date of Service: 05/20/25 The patient is an INPATIENT: No Changes since office visit: Yes Patient answered all questions The patient has been examined within 24 hours of the surgical procedure. The History & Physical has been completed within 30 days and I have reviewed it.: Yes Section B - Complete if H&P > 30 days Chief Complaint: post op Allergies: Allergies Allergy/AdvReac Type Severity Reaction Status Date / Time No Known Allergies (No Known Allergy Verified 05/20/25 06:19 Allergies*) Plan I have reviewed the history and physical and performed a pertinent physical examination on my patient. No changes have occurred unless specified. Time Spent With Patient Time: Total time managing care of this patient today ____ minutes.
[2025-05-20 10:20] LABS: Glucose, Whole Blood 129 mg/dL (60-115)
--- NOTE | 2025-05-20 10:21 | W.PM.OPN ---
Operative Note Operative Note Date of Service: 05/20/25 Narrative: Operative note by [facility] Preoperative diagnosis:1. Right Carotid stenosis Postoperative diagnosis: Same Procedure: Right Carotid endarterectomy with patch angioplasty Surgeon:Barry Rangel M.D. Canning Machine Operator: Dr. Corona Anesthesia: General Specimens: 1 Drains: 1 Estimated blood loss: 100 mL Indications: 65-year-old female who was discovered to have high-grade right carotid stenosis on CT scan now presents for carotid endarterectomy The patient has signed the informed consent after reviewing risks, complications, benefits, and alternatives previously discussed with the patient. The patient was given the opportunity to ask any additional questions or voice any concerns. All questions were answered to the patient's satisfaction. Procedure in detail: Patient was taken to the operating room and placed in a supine position and prepped and draped in sterile manner with ChloraPrep. Longitudinal incision was made along the anterior border of the right sternocleidomastoid carried down through the subcutaneous fat and fascia. Hemostasis was obtained with electrocautery. The platysma muscle was then divided. The carotid sheath was identified in open. The vagus nerve, Ancef cervicalis, and hypoglossal nerves were identified and avoided. The common internal and external carotids were then freed from the surrounding tissue. At this point, 4000 units of heparin was administered and allowed to circulate for 5 minutes time to take effect. The internal, common, external carotids were clamped in that order. Once this was accomplished, we proceeded with the procedure. The carotid bulb was opened with an 11 blade and extended with Garcia scissors through the very tight lesion into normal internal carotid artery. This was then extended down into the common carotid artery. We then placed a Nielsen shunt. Then the plaque was sharply excised proximally and an eversion endarterectomy was performed successfully at the external. The plaque tapered nicely on to the internal and no tacking sutures were necessary. Heparinized saline was injected and no evidence of flapping or other debris was noted. The remaining carotid was examined, which showed no debris or flaps present. At this point a XenoSure patch was brought on to the field. This was anastomosed to the artery using a 6 0 Prolene in a running fashion. Once approximately 4/5 of the patch was sewn in the shunt was then removed. Prior to the last stitch the internal carotid was back bled through this. Heparinized saline was instilled into the carotid. The last stitch was tied. Hemostasis was excellent. The internal carotid was gently occluded while while of the external and internal were open in that order. Finally the internal was then opened and flow was restored to the entire system. Hemostasis was achieved with interrupted 7-0 Prolene sutures. The wound was irrigated thoroughly. We then used Vistaseal for hemostasis. Deep layer was reapproximated using a 2-0 poly Sorb and finally the superficial layer with a 3-0 Polysorb. The skin was closed in a subcuticular manner. The patient awoke and neurologic status was checked and appeared to be intact. Sponge, needle and instrument counts were correct. The patient tolerated the procedure well. Returned to recovery with stable vitals. This note is constructed using voice recognition software. While every effort has been made to ensure accuracy, steamer blocker errors may have been included. Thank you for allowing me to participate in the care of your patient. Yours sincerely, Barry Rangel MD, FACS, R.P.V.I.
--- NOTE | 2025-05-20 11:32 | W.PM.CCCN ---
History of Present Illness Data of Consult Service Date: 05/20/25 Requesting physician: Barry Rangel Primary Care Provider: Charlie Lewis, [facility]- HPI Postoperative right carotid endarterectomy Asymptomatic individual smoker diabetic and hypertensive routine CT angiogram revealed 90% right carotid stenosis and she had an uneventful carotid endarterectomy currently awake alert and neurologically symmetric Review of Systems Review of Systems: Ten point review of systems extensively taken entirely negative including normal cardiac workup with normal global perfusion on nuclear stress test as well as 70% ejection fraction without segmental wall motion abnormality nor primary valve disease [facility] Past Medical History Medical History Diabetes Elevated cholesterol HTN (hypertension) Hx of fracture of leg Pre-diabetes Surgical History Surgical History (Updated 05/20/25 @ 11:37 by Kori Cummings MD) Hx of tubal ligation Hx of cystoscopy Social History Social History Household Members: Spouse Housing: Apartment Are you a primary acute care nurse practitioner to a significant other at home: Yes Do you presently have visiting nurse or other home services: No Alcohol intake: current Alcohol intake frequency: holidays/special occasions only Patient Tobacco Use Status: Current everyday Tobacco user Tobacco use type: Cigarette Cigarette Packs Per Day: 1 Cigarettes Per Day: 12 Years Smoked: 40 Smoked in Last 30 Days: Yes e-Cigarette/Vaping Use: Currently Using Patient Interested in Nicotine Replacement: No Patient Given Instructions on How to Stop Smoking: Yes Date Education Initiated: 05/20/25 Second Hand Smoke Exposure: Yes Use of substances other than those prescribed or required for medical reasons: No Have you been hit, kicked, punched, or otherwise hurt by someone within the past year? If so, by whom?: No Do you feel safe in your current relationship?: Yes Is there a partner from a previous relationship who is making you feel unsafe now?: No Are you made to feel afraid or neglected: No Spiritual Healthcare Practices: none per patient Judaism Healthcare Practices: none per patient Cultural Healthcare Practices: none per patient Are you DNR?: No Advance Directives: No Advance Directives Information Provided: Yes Advance Directives on File: No Do you have a plan to hurt others: No Plan Recently lost weight without trying: No Eating poorly because of decreased appetite: No Nutrition Risks: No Nutritional Risk Patient : No : No Poor oral hygiene: Yes service: No Current occupational status: retired Sexual orientation: Straight/Heterosexual Gender identity: Female Cognitive needs: No Hearing needs: No Vision needs: No Meds Allergies Allergy/AdvReac Type Severity Reaction Status Date / Time No Known Allergies (No Known Allergy Verified 05/20/25 06:19 Allergies*) Active Medications: Current Medications Acetaminophen (Acetaminophen 325 Mg Tablet) 650 mg PO Q6H PRN PRN Reason: Pain, Mild 1-3,fever,headache Albuterol Sulfate (Albuterol Sulfate (0.083%) 2.5 Mg/3 Ml Vial.Neb) 2.5 mg INHALE ONCE PRN PRN Reason: Shortness of Breath/Wheezing Aspirin (Aspirin Enteric Coated 81 Mg Tablet.Dr) 81 mg PO DAILY ZARA Atorvastatin Calcium (Atorvastatin Calcium 40 Mg Tablet) 40 mg PO BEDTIME ZARA Calcium Carbonate (Calcium Carbonate 750 Mg Tab.Chew) 750 mg PO Q4H PRN PRN Reason: Heartburn Empagliflozin (Empagliflozin 10 Mg Tablet) 10 mg PO DAILY ZARA Hydrochlorothiazide (Hydrochlorothiazide 12.5 Mg Tablet) 12.5 mg PO DAILY ZARA; Protocol Sodium Chloride (Ns) 1,000 mls @ 80 mls/hr IVCONT .[id number] [facility] Last Admin: 05/20/25 11:11 Dose: 80 mls/hr Cefazolin Sodium/Dextrose (Ancef) 2 gm in 50 mls @ 100 mls/hr IV POSTOP@1400 ONE Stop: 05/20/25 14:29 Losartan Potassium (Losartan Potassium 25 Mg Tablet) 25 mg PO DAILY [facility]; Protocol Magnesium Hydroxide (Milk Of Magnesia 30 Ml Oral.Susp) 30 ml PO DAILY PRN PRN Reason: Constipation Melatonin (Melatonin 3 Mg Tablet) 6 mg PO BEDTIME PRN PRN Reason: Insomnia Morphine Sulfate (Morphine Sulfate 2 Mg/Ml Cartridge) 2 mg IVPUSH Q4H PRN; Protocol PRN Reason: Pain, Severe (Pain Scale 7-10) Oxycodone HCl (Oxycodone Hcl Immed Release 5 Mg Tablet) 5 mg PO Q4H PRN PRN Reason: Pain, Moderate(Pain Scale 4-6) Sodium Chloride (0.9 % Sodium Chloride Flush 3 Ml Syringe) 3 ml IVFLUSH QSHIFT [facility] Physical Exam Vital Signs: Vital Signs: Last Vital Signs Temp 97.1 F 05/20/25 10:38 Pulse 68 05/20/25 10:38 Resp 16 05/20/25 10:38 BP 120/57 L 05/20/25 10:38 Pulse Ox 99 05/20/25 10:38 O2 Del Method Nasal Cannula 05/20/25 10:38 O2 Flow Rate 2 05/20/25 10:38 BMI result Body Mass Index 23.6 Awake alert and neurologically intact She has a good left carotid upstroke and good bilateral anterior tibial and posterior tibial pulses with no peripheral edema Skin clear no rashes Cardiac exam with quiet precordium normal S1 normal S2 no gallops no rubs no murmurs Chest is clear no adventitious sounds Abdomen soft good bowel sounds and no organomegaly Results Labs 05/09/25 11:15 05/09/25 11:15 Assessment and Plan (1) S/P carotid endarterectomy: Status: Acute Plan Maintain home medications including SGLT 2 inhibitor as well as antihypertensive treatment and observe for any neurological or postoperative site complications Total time managing care of this patient today: 30 minutes.
[2025-05-20 11:49] LABS: Glucose, Whole Blood 141 mg/dL (60-115)
[2025-05-20] MEDS: 0.9 % Sodium Chloride Flush 3 ML SYRINGE IVFLUSH (14:56)
[2025-05-20 16:26] LABS: Glucose, Whole Blood 211 mg/dL (60-115)
[2025-05-20 20:34] LABS: MANUAL DIFF FLAG NO
[2025-05-20 20:38] LABS: Hematocrit 37.6 % (37.0-47.0); Hemoglobin 13.2 g/dl (12.0-16.0); Imm Gran Abs Auto 0.05 X10*3/uL (0.00-0.03); Imm Gran Pct Auto 0.5 % (0.0-0.4); Lymphocytes Absolute Auto 0.9 X10*3/uL (1.2-4.9); Mean Corpuscular HGB Conc 35.1 g/dl (31.0-35.0); Mean Corpuscular Hemoglobin 31.6 pg (27.0-33.0); Mean Corpuscular Volume 90.0 fL (80.0-98.0); NRBC Abs Auto 0.000 X10*3/uL (0.0-0.012); NRBC Pct Auto 0.0 /100WBC (0.0-0.2); Platelet Count 194 X10*3/uL (160-400); Red Blood Count 4.18 X10*6/uL (4.20-5.50); White Blood Count 10.5 X10*3/uL (4.8-10.8)
[2025-05-20 20:53] LABS: Glucose, Whole Blood 172 mg/dL (60-115)
[2025-05-20 20:56] LABS: Anion Gap 10 (12-20); Blood Urea Nitrogen 12 mg/dL (9-16); Calcium 8.4 mg/dL (8.4-10.2); Carbon Dioxide 22 mmol/L (22-29); Chloride 112 mmol/L (96-108); Creatinine Clr Calc Pharmacy 42.6; Estimated Glomerular Filt Rate 53; Magnesium 1.9 mg/dL (1.6-2.6); Potassium 3.6 mmol/L (3.3-5.1); Sodium 140 mmol/L (135-145)
[2025-05-20] MEDS: Potassium Phosphate/NS 15 MMOL/250 ML PLAST..BAG 62.5 MMOL IV (21:11)
--- NOTE | 2025-05-20 22:51 | PC.NURSE ---
A line removed from right wrist. Catheter intact , minimal bleeding . Dressing CDI, patient tolerated well.
[2025-05-21] VITALS (12 sets, daily range): BP systolic 101–134; BP diastolic 51–67; PULSE 58–79; RESP 12–25; TEMP 36.1–36.3; O2SAT 94–97
[2025-05-21 05:05] LABS: MANUAL DIFF FLAG NO
[2025-05-21 05:07] LABS: Hematocrit 36.6 % (37.0-47.0); Hemoglobin 12.8 g/dl (12.0-16.0); Imm Gran Abs Auto 0.07 X10*3/uL (0.00-0.03); Imm Gran Pct Auto 0.5 % (0.0-0.4); Lymphocytes Absolute Auto 2.2 X10*3/uL (1.2-4.9); Mean Corpuscular HGB Conc 35.0 g/dl (31.0-35.0); Mean Corpuscular Hemoglobin 31.8 pg (27.0-33.0); Mean Corpuscular Volume 91.0 fL (80.0-98.0); NRBC Abs Auto 0.000 X10*3/uL (0.0-0.012); NRBC Pct Auto 0.0 /100WBC (0.0-0.2); Platelet Count 184 X10*3/uL (160-400); Red Blood Count 4.02 X10*6/uL (4.20-5.50); White Blood Count 14.4 X10*3/uL (4.8-10.8)
[2025-05-21 05:26] LABS: Albumin Level 3.4 g/dL (3.5-5.0); Anion Gap 12 (12-20); Blood Urea Nitrogen 13 mg/dL (9-16); Calcium 8.3 mg/dL (8.4-10.2); Carbon Dioxide 19 mmol/L (22-29); Chloride 115 mmol/L (96-108); Creatinine Clr Calc Pharmacy 60.7; Estimated Glomerular Filt Rate > 60; Magnesium 2.0 mg/dL (1.6-2.6); Potassium 4.5 mmol/L (3.3-5.1); Sodium 141 mmol/L (135-145)
--- NOTE | 2025-05-21 05:57 | P.PNCC_ITS ---
Subjective Subjective Date of Service: 05/21/25 Interval History: Uneventful night no significant bleeding from the wound has good bilateral carotid upstrokes no focal neurologic difficulties no complaints of chest discomfort no dysrhythmia Critical Care Time (minutes): 30 Physical Exam 2 Vital Signs: Vital Signs: Last Vital Signs Temp 97.0 F 05/21/25 00:00 Pulse 60 05/21/25 05:00 Resp 19 05/21/25 05:00 BP 117/64 05/21/25 05:00 Pulse Ox 94 05/21/25 05:00 O2 Del Method Room Air 05/21/25 05:00 O2 Flow Rate 2 05/20/25 10:38 BMI result Body Mass Index 23.6 Head and neck intact no evidence of cranial neuropathy Skin clear no rashes Good bilateral peripheral pulses no edema Cardiac exam no murmurs no gallops Abdomen benign no hepatomegaly Chest no adventitious sounds just mildly diminished breath sounds bilaterally Objective Data Labs 05/21/25 04:44 05/21/25 04:44 Labs: Laboratory Results - last 24 hr 05/20/25 05/20/25 05/20/25 06:39 10:12 11:43 WBC RBC Hgb Hct MCV MCH MCHC RDW Plt Count MPV Immature Gran % (Auto) Neut % (Auto) Lymph % (Auto) [place] % (Auto) Eos % (Auto) Baso % (Auto) Lymph # (Auto) [place] # (Auto) Eos # (Auto) Baso # (Auto) Abs Immat Gran (auto) Absolute Neuts (auto) Absolute Nucleated RBC Nucleated RBC % (auto) Sodium Potassium Chloride Carbon Dioxide Anion Gap BUN Creatinine Estim Creat Clear Calc Estimated GFR POC Glucose 98 129 H 141 H Random Glucose Calcium Phosphorus Magnesium Albumin 05/20/25 05/20/25 05/20/25 16:23 20:10 20:50 WBC 10.5 RBC 4.18 L Hgb 13.2 Hct 37.6 MCV 90.0 MCH 31.6 MCHC 35.1 H RDW 12.6 Plt Count 194 MPV 9.6 Immature Gran % (Auto) 0.5 H Neut % (Auto) 83.5 H Lymph % (Auto) 8.8 L [place] % (Auto) 6.9 Eos % (Auto) 0.0 Baso % (Auto) 0.3 Lymph # (Auto) 0.9 L [place] # (Auto) 0.7 Eos # (Auto) 0.0 Baso # (Auto) 0.0 Abs Immat Gran (auto) 0.05 H Absolute Neuts (auto) 8.8 H Absolute Nucleated RBC 0.000 Nucleated RBC % (auto) 0.0 Sodium 140 Potassium 3.6 Chloride 112 H Carbon Dioxide 22 Anion Gap 10 L BUN 12 Creatinine 1.04 Estim Creat Clear Calc 42.6 Estimated GFR 53 POC Glucose 211 H 172 H Random Glucose 189 H Calcium 8.4 D Phosphorus 2.0 L Magnesium 1.9 Albumin 05/21/25 04:44 WBC 14.4 H RBC 4.02 L Hgb 12.8 Hct 36.6 L MCV 91.0 MCH 31.8 MCHC 35.0 RDW 12.7 Plt Count 184 MPV 9.6 Immature Gran % (Auto) 0.5 H Neut % (Auto) 76.9 H Lymph % (Auto) 15.0 L [place] % (Auto) 7.2 Eos % (Auto) 0.1 Baso % (Auto) 0.3 Lymph # (Auto) 2.2 [place] # (Auto) 1.0 Eos # (Auto) 0.0 Baso # (Auto) 0.0 Abs Immat Gran (auto) 0.07 H Absolute Neuts (auto) 11.1 H Absolute Nucleated RBC 0.000 Nucleated RBC % (auto) 0.0 Sodium 141 Potassium 4.5 D Chloride 115 H Carbon Dioxide 19 L Anion Gap 12 BUN 13 Creatinine 0.73 Estim Creat Clear Calc 60.7 Estimated GFR > 60 POC Glucose Random Glucose 134 H Calcium 8.3 L Phosphorus 3.2 Magnesium 2.0 Albumin 3.4 L Progress Note: A&P Assessment and plan (1) HTN (hypertension): Status: Acute (2) Carotid stenosis: Status: Acute (3) Carotid stenosis, right: Status: Acute (4) S/P carotid endarterectomy: Status: Acute (5) Preoperative cardiovascular examination: Status: Acute (6) Newly diagnosed diabetes: Status: Acute Plan So uneventful postop right carotid endarterectomy in all likelihood patient should be able to step-down from ICU observation without complication Quality Stroke Does the patient have a stroke diagnosis?: No VTE Prior VTE?: No VTE Risk Level:: Surgical - high VTE Device Contraindication: N/A - Device Ordered VTE Drug Contraindication: Treatment Not Tolerated
[2025-05-21 07:22] LABS: Glucose, Whole Blood 120 mg/dL (60-115)
[2025-05-21] MEDS: Aspirin Enteric Coated 81 MG TABLET.DR PO (08:38)
[2025-05-21] MEDS: 0.9 % Sodium Chloride Flush 3 ML SYRINGE IVFLUSH (08:39)
[2025-05-21 11:20] LABS: Glucose, Whole Blood 105 mg/dL (60-115)
--- NOTE | 2025-05-21 11:49 | PM.DS ---
DS: Providers Provider Date of Service: 05/21/25 Date of admission: 05/20/25 06:33 Date of discharge: 05/21/25 Primary care physician: Charlie Lewis [facility] DS: Diagnosis Discharge Diagnosis (1) HTN (hypertension): Status: Acute (2) Carotid stenosis: Status: Acute (3) Carotid stenosis, right: Status: Acute (4) S/P carotid endarterectomy: Status: Acute (5) Preoperative cardiovascular examination: Status: Acute (6) Newly diagnosed diabetes: Status: Acute DS: Summary Hospital Course Hospital Course: Chaparrita is s/p right carotid endarterectomy with Dr Rangel on 05/20/25. She has remained stable in the ICU overnight. Her A-line was removed overnight without complications. She has been eating, drinking, and sleeping well. Her VS remain stable. She denies any numbness, tingling, headaches, or CVA symptoms. She states the pain is well controlled and the only discomfort that she was having was due to the bandage being too tight. She will get OOB today and have the Blanca removed. We will continue to monitor her through the morning with a discharge occurring after lunch, around 1300. I removed the dressing this morning; steri strips were intact and there was no bleeding or discharge on the steri strips or bandage. I discussed with her to let the steri-strips fall off on their own. She is able to shower; however, she cannot submerge in water. We discussed the importance of rest but not being sedentary. We discussed to not drive until cleared at her follow up appt and to not lift more than a gallon of milk over the next 2 weeks. We discussed the importance of a healthy, well balanced diet and continuing with her current medication regimen. We discussed the signs and symptoms of a CVA/TIA and to call 911 if these occur. We will have her follow up in 2w, on 06/04. If there are any questions or concerns, please do not hesitate to reach out to us. Time Attestation Discharge Coordination Time (in mins): >45 minutes Quality: Safe Use of Opioids Does Pt have an Active Cancer Diagnosis on the Problem List?: No Quality: Stroke Does the patient have a stroke diagnosis?: No Physical Exam Vital Signs: Vital Signs: Last Vital Signs Temp 97.3 F 05/21/25 08:00 Pulse 79 05/21/25 11:00 Resp 23 H 05/21/25 11:00 BP 116/51 L 05/21/25 11:00 Pulse Ox 95 05/21/25 11:00 O2 Del Method Room Air 05/21/25 11:00 O2 Flow Rate 2 05/20/25 10:38 BMI result Body Mass Index 23.6 Const: General: comfortable and no acute distress Orientation/consciousness: patient oriented x3 HEENT: Ears: hearing grossly normal bilaterally Neck: Other: Right CEA site: steri strips in place, no bleeding or drainage noted. Not painful to palpation. Resp: Effort & Inspection: normal respiratory effort and able to speak in complete sentences Auscultation: clear to auscultation bilaterally Cardio: Rate: regular rate Rhythm: regular rhythm Heart sounds: S1 normal heart sound present and S2 normal heart sound present Bruits: no abdominal aortic bruits, no carotid bruits, no femoral bruits and no renal bruits GI: Palpation (GI): No Abdominal aortic bruit present Neuro: General: patient oriented x3 Cranial nerves: Yes CN's II-XII intact bilaterally DS: Data Data Completed and Pending Pending studies at discharge: Pending at discharge 05/20/25 08:56 Surgical [PTH] Routine Labs on day of discharge: Laboratory Results - last 24 hr 05/20/25 05/20/25 05/20/25 11:43 16:23 20:10 WBC 10.5 RBC 4.18 L Hgb 13.2 Hct 37.6 MCV 90.0 MCH 31.6 MCHC 35.1 H RDW 12.6 Plt Count 194 MPV 9.6 Immature Gran % (Auto) 0.5 H Neut % (Auto) 83.5 H Lymph % (Auto) 8.8 L [place] % (Auto) 6.9 Eos % (Auto) 0.0 Baso % (Auto) 0.3 Lymph # (Auto) 0.9 L [place] # (Auto) 0.7 Eos # (Auto) 0.0 Baso # (Auto) 0.0 Abs Immat Gran (auto) 0.05 H Absolute Neuts (auto) 8.8 H Absolute Nucleated RBC 0.000 Nucleated RBC % (auto) 0.0 Sodium 140 Potassium 3.6 Chloride 112 H Carbon Dioxide 22 Anion Gap 10 L BUN 12 Creatinine 1.04 Estim Creat Clear Calc 42.6 Estimated GFR 53 POC Glucose 141 H 211 H Random Glucose 189 H Calcium 8.4 D Phosphorus 2.0 L Magnesium 1.9 Albumin 05/20/25 05/21/25 05/21/25 20:50 04:44 07:18 WBC 14.4 H RBC 4.02 L Hgb 12.8 Hct 36.6 L MCV 91.0 MCH 31.8 MCHC 35.0 RDW 12.7 Plt Count 184 MPV 9.6 Immature Gran % (Auto) 0.5 H Neut % (Auto) 76.9 H Lymph % (Auto) 15.0 L [place] % (Auto) 7.2 Eos % (Auto) 0.1 Baso % (Auto) 0.3 Lymph # (Auto) 2.2 [place] # (Auto) 1.0 Eos # (Auto) 0.0 Baso # (Auto) 0.0 Abs Immat Gran (auto) 0.07 H Absolute Neuts (auto) 11.1 H Absolute Nucleated RBC 0.000 Nucleated RBC % (auto) 0.0 Sodium 141 Potassium 4.5 D Chloride 115 H Carbon Dioxide 19 L Anion Gap 12 BUN 13 Creatinine 0.73 Estim Creat Clear Calc 60.7 Estimated GFR > 60 POC Glucose 172 H 120 H Random Glucose 134 H Calcium 8.3 L Phosphorus 3.2 Magnesium 2.0 Albumin 3.4 L 05/21/25 11:16 WBC RBC Hgb Hct MCV MCH MCHC RDW Plt Count MPV Immature Gran % (Auto) Neut % (Auto) Lymph % (Auto) [place] % (Auto) Eos % (Auto) Baso % (Auto) Lymph # (Auto) [place] # (Auto) Eos # (Auto) Baso # (Auto) Abs Immat Gran (auto) Absolute Neuts (auto) Absolute Nucleated RBC Nucleated RBC % (auto) Sodium Potassium Chloride Carbon Dioxide Anion Gap BUN Creatinine Estim Creat Clear Calc Estimated GFR POC Glucose 105 Random Glucose Calcium Phosphorus Magnesium Albumin Discharge Plan Discharge Anticipated Discharge Date/Time: 05/21/25 13:00 Patient Disposition: Home, Self-Care Discharge Diagnosis: s/p right carotid endarterectomy Referrals: Charlie Lewis, [facility] [Primary Care Provider, Internal Medicine] - 1 Week Discharge Medications: Continued alcohol swabs [Alcohol Pads] Pads, Medicated 1 pad topical .COMPLEX Qty: 100 0RF Rx Instructions: 1 pad topically; (DME) blood-glucose meter [OneTouch Ultra2 Meter] [facility] [place] See Rx Instructions .Route Qty: 1 0RF Rx Instructions: BID testing aspirin [Adult Aspirin Regimen] 81 mg tablet,delayed release (DR/EC) 81 mg PO DAILY 90 Days Qty: 90 1RF calcium carbonate-vitamin D3 600 mg-12.5 mcg (500 unit) capsule 1 cap PO BID 90 Days Qty: 180 1RF Jardiance 10 mg tablet 10 mg PO DAILY Qty: 90 1RF atorvastatin 40 mg tablet 40 mg PO BEDTIME Qty: 90 1RF Rx Instructions: start half a tab at night for 2 weeks, then go to full tab (DME) OneTouch Ultra Test Strip See Rx Instructions .Route Qty: 200 1RF Rx Instructions: BID testing (DME) lancets [OneTouch Delica Plus Lancet] 33 gauge [facility] [place] See Rx Instructions .Route Qty: 200 1RF Rx Instructions: Test blood sugar twice a day losartan 25 mg tablet 25 mg PO DAILY 90 Days Qty: 90 1RF hydrochlorothiazide 12.5 mg capsule 12.5 mg PO DAILY 90 Days Qty: 90 1RF Discharge Orders: Discharge Order (Routine); Ordered 05/21/25 Ordered By: Charity Griggs Diet: Advance to usual diet Activity on Discharge: As tolerated Stand Alone Forms: Patient Portal Discharge page Print Language: Jamaican Activity Restrictions/Additional Instructions: Sutures and steri strips were used and you may shower as early as tomorrow. Do not submerge in a tub or pool/aly/pond. Take it easy for the next 2 weeks but do not become sedentary. Rest is important. Do not drive until you are cleared at your follow up appt. You may climb a flight of stairs as tolerated Do not lift anything heavier than a gallon of milk for [address] Rangel in follow-up in approximately 2 weeks time. You should already have an appointment if not please call my office at [phone] If you notice excessive bleeding from the neck, please immediately call my office or return to the emergency room. Care Plan Goals: Do not lift anything heavier than a gallon of milk for the next 2 weeks. Rest but do not be sedentary. Continue with your current medications. Health Concerns: Eat a healthy, well balanced diet. Keep the incision site clean and dry. Plan of Treatment: Rest but do not become sedentary. Light physical activity. Healthy, well balanced diet. Continue with your current medications. The steri strips will fall off on their own, do not peel them off. If you have any signs or symptoms of a stroke, please call 911. Follow up in the office on 06/04/25. Assessment: s/p right carotid endarterectomy
--- NOTE | 2025-05-21 12:24 | MHC.CM.PN ---
Pt to be discharged to home today with outpt follow up. Pt has transportation and does not require services.
--- NOTE | 2025-05-21 14:12 | HO.POSTANES ---
Post Anesthesia Evaluation Post Anesthesia Evaluation Date of Service: 05/21/25 Vital Signs: Vital Signs Temp Pulse Resp BP Pulse Ox O2 Del Method 05/21/25 11:00 79 23 H 116/51 L 95 Room Air 05/21/25 10:00 72 25 H 115/62 94 Room Air 05/21/25 09:00 74 23 H 134/65 94 Room Air 05/21/25 08:00 97.3 F 73 21 H 130/61 95 Room Air 05/21/25 07:00 67 18 124/65 97 Room Air 05/21/25 06:00 58 19 118/61 95 Room Air 05/21/25 06:00 59 15 118/61 95 Room Air 05/21/25 05:00 60 19 117/64 94 Room Air 05/21/25 03:40 60 18 110/55 L 94 Room Air 05/21/25 03:00 62 18 131/62 94 Room Air Anesthesia: General Endotracheal-GETA Mental Status: Awake Pain Control: Satisfactory Nausea/Vomiting: None Hydration: Adequate Anesthesia-Related Issues: No Anes. Related Issues
== END 2025-05-21 13:24 | disposition home or self-care (01) | DRG 39 ==
LOC: HO.SSSA 06:34 → HO.ICU 10:13
PROVIDERS: Nurse Practitioner; Registered Nurse Community Health; Admitting Provider Surgery Vascular Surgery; PCP Nurse Practitioner Family; Visit Provider Surgery Vascular Surgery
PROC: 03CH0ZZ Extirpation of Matter from Right Common Carotid Artery, Open Approach (ICD-10-PCS; CPT 35301; principal; 2025-05-20 07:30)
DX: I65.21 Occlusion and stenosis of right carotid artery (principal); F17.210 Nicotine dependence, cigarettes, uncomplicated; Z71.6 Tobacco abuse counseling; Z79.82 Long term (current) use of aspirin; Z79.899 Other long term (current) drug therapy
CPT/HCPCS: 36415; 80048; 82040; 82947; 83735; 84100; 85025; 85027; 85610; 85730; 86850; 86900; 86901; 88304; 88311; A4649; C1768; C9250; J0690; J1100; J1644; J2003; J2250; J2305; J2371; J2405; J2598; J2795; J3010

== ENCOUNTER → 2025-05-20 06:33 | Outpatient (BNV) | payer MEDICARE, SELFPAY | PROVIDERS: Admitting Provider Surgery Vascular Surgery; PCP Nurse Practitioner Family; Visit Provider Surgery Vascular Surgery | DX: I65.21 Occlusion and stenosis of right carotid artery (principal) | CPT/HCPCS: 35301; 99232 ==

== ENCOUNTER → 2025-05-20 06:33 | Outpatient (BNV) | payer MEDICARE, SELFPAY | PROVIDERS: Admitting Provider Surgery Vascular Surgery; PCP Nurse Practitioner Family; Visit Provider Internal Medicine Cardiovascular Disease | DX: I65.21 Occlusion and stenosis of right carotid artery (principal); Z98.890 Other specified postprocedural states | CPT/HCPCS: 99223 ==

== ENCOUNTER 2025-06-06 12:47 | Outpatient (AMB) | payer MEDICARE, SELFPAY ==
--- NOTE | 2025-06-06 12:51 | A.OFFVIS_ITS ---
Vital Signs 06/06/25 12:51 Height 5 ft 2 in Intake Visit Reasons: 2 week follow up s/p R CEA 05/20/25 Intake Note: 2 week follow up R CEA 05/20/25. Pt states she feels great Accompanied by: Self / Same As Patient Allergies No Known Allergies (No Known Allergies*) Allergy (Verified 06/06/25 12:56) HPI HPI 2 week follow up s/p R CEA 05/20/25: Details: The patient is a 65-year-old female presenting for follow-up after right carotid endarterectomy. The procedure was performed on May 20, 2025, and the postoperative course was uneventful. The patient reports feeling well and has resumed normal activities, including driving and showering. The surgical site has healed nicely, although the patient experiences slight numbness, which is expected to improve over time. A follow-up ultrasound is planned in three months to ensure the surgical outcome remains satisfactory. [facility] Medical History Preoperative cardiovascular examination Carotid stenosis Newly diagnosed diabetes Diabetes Elevated cholesterol HTN (hypertension) Hx of fracture of leg Pre-diabetes Surgical History Hx of tubal ligation Hx of cystoscopy Social History Household Members: Spouse Housing: Apartment Are you a primary child care leader to a significant other at home: Yes Do you presently have visiting nurse or other home services: No Alcohol intake: current Alcohol intake frequency: holidays/special occasions only Patient Tobacco Use Status: Current everyday Tobacco user Tobacco use type: Cigarette Cigarette Packs Per Day: 1 Cigarettes Per Day: 12 Years Smoked: 40 e-Cigarette/Vaping Use: Currently Using Second Hand Smoke Exposure: Yes service: No Current occupational status: retired Sexual orientation: Straight/Heterosexual Gender identity: Female Cognitive needs: No Hearing needs: No Vision needs: No Review of Systems Const All systems reviewed & are unremarkable except as noted in HPI and below Reports no additional complaints ENT Reports Normal hearing present Card Denies chest pain, Denies chest pain at rest, Denies chest pain with activity and Denies pedal edema Resp Denies cough GI Denies abdominal pain Musc Denies abnormal gait, Denies muscle cramps and Denies radiating pain into limb Skin/Breast Denies skin ulcer and Denies wounds Neuro Reports Normal hearing present and Denies abnormal gait Psych Reports no additional complaints Physical Exam Const General: cooperative, healthy appearing and comfortable Orientation/consciousness: oriented to person, oriented to place and oriented to time HEENT Head: Yes normal to inspection Neck Neck: Yes normal visual inspection Carotids: no bruits Chest Chest palpation & inspection: normal inspection of the chest Resp Effort & Inspection: normal respiratory effort and able to speak in complete sentences Auscultation: clear to auscultation bilaterally, no crackles, no rales, no rhonchi and no wheezes Cardio Rate: regular rate Rhythm: regular rhythm Heart sounds: S1 normal heart sound present and S2 normal heart sound present Bruits: no carotid bruits Peripheral pulses: Peripheral pulses 2+ throughout GI Inspection: Yes normal to inspection Skin Other: Incision well healed Wounds: no wounds Hair: normal Neuro General: oriented to person, oriented to place and oriented to time Cranial nerves: Yes CN's II-XII intact bilaterally and Yes Normal hearing present Cognition (Neuro): normal cognition Motor exam (neuro): 5/5 motor strength present throughout Extrem Other: venous exam: No significant superficial varicosities or spider telangiectasias, minimal edema General: No clubbing, No cyanosis and No edema Psych Appearance: grossly normal Mental Status: mental status grossly normal Speech and movement: Normal speech and movement present Assessment & Plan Assessment & Plan (1) Bilateral carotid artery stenosis: Comment: 05/20/2025 right carotid endarterectomy Code(s): I65.23 - Occlusion and stenosis of bilateral carotid arteries Category: Medical Plan: In short patient has done well status post right carotid endarterectomy. We have reviewed signs and symptoms of a stroke. We also discussed risk factor modification inclusive a healthy diet low in cholesterol. The patient will follow up with us with surveillance ultrasound of the carotids 3 months. Should there be any changes or signs or symptoms of a stroke we will be happy to see them back sooner. Thank you for allowing us to participate in this patient's care. If there are any questions or concerns please do not hesitate to contact us. Orders: Orders US carotid duplex BI 3 Months I65.21 - Occlusion and stenosis of right carotid artery Coding Level of Care Code Est Pt Level 4 (06447) Diagnoses Bilateral carotid artery stenosis I65.23
--- OUTSIDE RECORDS SUMMARY | 2025-06-06 13:12 | XMS_ITS | Clinical Summary ---
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
== END 2025-06-06 13:44 | disposition home or self-care (01) ==
LOC: HO.HVS 12:48
PROVIDERS: PCP Nurse Practitioner Family; Visit Provider Surgery Vascular Surgery
DX: I65.23 Occlusion and stenosis of bilateral carotid arteries (principal)
CPT/HCPCS: 99024

== ENCOUNTER → 2025-06-06 12:47 | Outpatient (BNVA) | payer MEDICARE, SELFPAY | PROVIDERS: PCP Nurse Practitioner Family; Visit Provider Surgery Vascular Surgery | DX: I65.23 Occlusion and stenosis of bilateral carotid arteries (principal) | CPT/HCPCS: 99212 ==

== ENCOUNTER 2025-08-26 08:49 | Outpatient (AMB) | payer MEDICARE, SELFPAY ==
[2025-08-26 09:11] VITALS: BP 124/84; PULSE 77; RESP 16; TEMP 37.3; O2SAT 96; BMI 23.8
--- NOTE | 2025-08-26 09:11 | MHC.PC.OV ---
Vital Signs 08/26/25 09:11 Height 5 ft 2 in Weight 130 lb BMI 23.8 BP 124/84 Blood Pressure Location Lt brachial Respiration 16 Pulse 77 Pulse Source Pulse Oximeter Temp 99.1 F Temp Source Oral Pulse Oximetry (%) 96 Oxygen Delivery Method Room Air Intake Visit Reasons: Annual PE - see comments Healthcare Manager Required: No Accompanied by: Self / Same As Patient Allergies No Known Allergies (No Known Allergies*) Allergy (Verified 08/26/25 09:12) Tobacco use date assessed: 08/26/25 Fall risk assessment: No Falls in past year Last assessed Fall Risk: 08/26/25 Dental Screening Dental Screen Date: 08/26/25 Did you have a dental visit in the last 12 months?: No Did you have a dental problem in the last 6 months where you did not have access to dental care?: No Was dental information given to patient?: Patient declined (Dentures) HPI Annual PE - see comments HPI Details History of Present Illness The patient is a 65-year-old female presenting with a physical examination and management of diabetes mellitus. She has a history of diabetes mellitus, which her A1c today is a stable 6.5. The patient has a significant history of tobacco use, having smoked since the age of 17. A referral for a low-dose CT scan was placed two years ago, but the patient did not follow through with the appointment. Will Re-refer. Preventative care measures include up-to-date mammograms and a scheduled bone density test. The patient has a Cologard test at home for colon cancer screening, which she has not yet completed. Health Maintenance - Mammogram up to date - Bone density test scheduled - Colon cancer screening with stool test (Pologard) pending - Encouraged to complete Pologard test - Referral for low-dose CT scan for lung cancer screening due to smoking history Social History - Tobacco use: Smokes since age 17 Review of Systems - Cardiovascular: Denies chest pain - Respiratory: Denies increased dyspnea - Gastrointestinal: Denies abdominal pain, hematochezia, constipation, diarrhea - Psychiatric: Denies suicidal ideation, denies homicidal ideation Physical Exam General: Cooperative, healthy appearing, comfortable, no acute distress and well developed Orientation: Patient oriented x3 Limitations: No limitations Head: Normal to inspection Ears: Hearing grossly normal bilaterally Nose: Normal external nose present Face and sinus: Normal facial exam Eyes: Appearance normal, both eyes and all related structures Neck: Normal visual inspection and Yes full ROM Respiratory: Lungs were a little bit diminished but moving air bilaterally Cardiovascular: Regular rate and rhythm. Normal S1 and S2 GI: Normal to inspection. Soft to palpation and nontender Skin: No rashes or lesions noted Neuro: Few are intact bilaterally, positive sensation with use of monofilament Extremities: Big toenails were slightly ingrown but no signs of infection Results Plan 1. Diabetes Mellitus The patient will have labs drawn in the near future to monitor her diabetes management. 2. Tobacco Use Disorder A referral for a low-dose CT scan for lung cancer screening was placed due to her smoking history. 3. Preventative Care The patient is encouraged to complete the cologuard test for colon cancer screening. Vaccinations due were noted and the patient was advised to obtain them at her pharmacy. Discussion Notes I discussed with the patient the importance of completing the Pologard test for colon cancer screening and encouraged her to do so soon. We also reviewed her smoking history and the need for a low-dose CT scan for lung cancer screening, which was previously recommended but not completed. I provided her with a list of vaccinations she is due for and advised her to get them at her pharmacy. Patient Instructions - Complete the cologuard test for colon cancer screening as soon as possible. - Follow up with the low-dose CT scan program for lung cancer screening due to smoking history. - Obtain the listed vaccinations at your pharmacy. [facility] Medical History Preoperative cardiovascular examination Carotid stenosis Newly diagnosed diabetes Diabetes Elevated cholesterol HTN (hypertension) Hx of fracture of leg Pre-diabetes Surgical History Hx of tubal ligation Hx of cystoscopy Social History Household Members: Spouse Housing: Apartment Are you a primary resident care aide to a significant other at home: Yes Do you presently have visiting nurse or other home services: No Alcohol intake: current Alcohol intake frequency: holidays/special occasions only Patient Tobacco Use Status: Current everyday Tobacco user Tobacco use type: Cigarette Cigarette Packs Per Day: 0.5 Cigarettes Per Day: 12 Years Smoked: 40 e-Cigarette/Vaping Use: Currently Using Second Hand Smoke Exposure: Yes service: No Current occupational status: retired Sexual orientation: Straight/Heterosexual Gender identity: Female Cognitive needs: No Hearing needs: No Vision needs: No Questionnaire PHQ-9 Over the last 2 weeks, how often have you been bothered by any of the following problems? 1. Little interest or pleasure in doing things: not at all 2. Feeling down, depressed, or hopeless: not at all 3. Trouble falling or staying asleep, or sleeping too much: not at all 4. Feeling tired or having little energy: not at all 5. Poor appetite or overeating: not at all 6. Feeling bad about yourself - or that you are a failure or have let yourself or your family down: not at all 7. Trouble concentrating on things, such as reading the newspaper or watching television: not at all 8. Moving or speaking so slowly that other people could have noticed. Or the opposite - being so fidgety or restless that you have been moving around a lot more than usual: not at all 9. Thoughts that you would be better off or of hurting yourself in some way: not at all Total score: 0 Depression Screening Interpretation: Negative Depression Screening Done: Yes 59268 - PHQ-9 Billing: Yes Source: Developed by Drs. Jonathan Cordoba, Vicky Chaves, Denzel Thibodeaux and colleagues, with an educational bobbi from [employer]. Thrive Questionnaire Date Thrive assessed: 02/19/25 I am a: Patient What is your living situation today?: I have a steady place to live Within the past 12 months, did the food you bought not last and you didn't have the money to get more?: I choose not to answer this question Within the past 12 months, did you worry whether your food would run out before you got money to buy more?: I choose not to answer this question Do you have trouble paying for medicines?: No Do you have trouble getting transportation to medical appointments?: No Do you have trouble paying your heating and electricity bill?: No Do you have trouble taking care of your child, family member or friend?: No Do you have trouble with day-to-day activities such as bathing, preparing meals, shopping, managing finances, etc.?: No Are you currently unemployed and looking for a job?: No Are you interested in more education?: No Please select the resources that you would like help with: None Currently or been in a relationship where the following occur: No concerns reported THRIVE Score: 0 LINETTE-7 AMB Questionnaire LINETTE-7 Date LINETTE - 7 assessed: 08/26/25 Feeling nervous, anxious, or on edge: 0 = Not at all Not being able to stop or control worryin = Not at all Worrying too much about different things: 0 = Not at all Trouble relaxin = Not at all Being so restless that it is hard to sit still: 0 = Not at all Becoming easily annoyed or irritable: 0 = Not at all Feeling afraid as if something awful might happen: 0 = Not at all Total LINETTE-7 score (0-4 normal; 5-9 mild; 10-14 moderate; 15-21 severe): 0 Source: Developed by Drs. Jonathan Cordoba, Vicky Chaves, Denzel Thibodeaux and colleagues, with an educational bobbi from [employer]. LINETTE-7 Assessment Billing LINETTE-7 Assessment Tool: LINETTE-7 Assessment 79322 Physical exam (Primary Care) Vital Signs: Last Vital Signs Temp 99.1 F 08/26/25 09:11 Pulse 77 08/26/25 09:11 Resp 16 08/26/25 09:11 BP 124/84 08/26/25 09:11 Pulse Ox 96 08/26/25 09:11 Oxygen Delivery Method Room Air 08/26/25 09:11 BMI result Body Mass Index 23.8 Tobacco/Smoking Status: Tobacco use Status Tobacco use date assessed 08/26/25 08/26/25 09:13 Patient Tobacco Use Status Current everyday Tobacco 08/26/25 09:13 Tobacco use type Cigarette 08/26/25 09:13 e-Cigarette/Vaping Use Currently Using 08/26/25 09:13 PHQ-9: PHQ-9 Score PHQ-9: Total score 0 08/26/25 09:24 Depression Screening Interpretation: Negative Thrive Assessment: Date of Thrive Assessment Date Thrive assessed 02/19/25 08/26/25 09:13 Currently or been in a relationship where the following occur: No concerns reported Coding Level of Care Code Est Pt Level 3 (17125) Est Pt Prev Care >65y(02857) Diagnoses Smoker F17.200 Diabetes E11.9 Physical exam Z00.00 Additional Codes LINETTE-7 Assessment Billing - LINETTE-7 Assessment Tool: LINETTE-7 Assessment 47369 ([id number]) PHQ-9 - 28388 - PHQ-9 Billing: Yes ([id number]) Assessment & Plan Assessment & Plan (1) Smoker: Code(s): F17.200 - Nicotine dependence, unspecified, uncomplicated Category: Social Hx (2) Diabetes: Code(s): E11.9 - Type 2 diabetes mellitus without complications Category: Medical (3) Physical exam: Code(s): Z00.00 - Encounter for general adult medical examination without abnormal findings Category: Medical Plan . Orders: Orders Complete Blood Count Auto Diff Today E11.9 - Type 2 diabetes mellitus without complications Comprehensive [place]. Panel Fast Today E11.9 - Type 2 diabetes mellitus without complications TSH reflex Free T4 Today E11.9 - Type 2 diabetes mellitus without complications Lipid Panel Today E11.9 - Type 2 diabetes mellitus without complications Microalbumin, Random (w Creat) Today E11.9 - Type 2 diabetes mellitus without complications AMB Hemoglobin A1c Today Z13.9 - Encounter for screening, unspecified US abdominal aortic aneurysm Today F17.200 - Nicotine dependence, unspecified, uncomplicated UA CC w/rflx Micro + Cult Today E11.9 - Type 2 diabetes mellitus without complications Referrals Lung Cancer Screening Referral F17.200 - Nicotine dependence, unspecified, uncomplicated
--- OUTSIDE RECORDS SUMMARY | 2025-08-26 09:37 | XMS_ITS | Clinical Summary ---
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
== END 2025-08-26 10:05 | disposition home or self-care (01) ==
LOC: HO.HMCC 08:50
PROVIDERS: PCP Nurse Practitioner Family; Visit Provider Nurse Practitioner Family
DX: Z00.00 Encounter for general adult medical examination without abnormal findings (principal); F17.200 Nicotine dependence, unspecified, uncomplicated; E11.9 Type 2 diabetes mellitus without complications

== ENCOUNTER → 2025-08-26 08:49 | Outpatient (BNVA) | payer MEDICARE, OTHER, SELFPAY | PROVIDERS: PCP Nurse Practitioner Family; Visit Provider Nurse Practitioner Family | DX: Z00.00 Encounter for general adult medical examination without abnormal findings (principal); E11.9 Type 2 diabetes mellitus without complications; F17.210 Nicotine dependence, cigarettes, uncomplicated | CPT/HCPCS: 83036; 96127; 99397 ==

== ENCOUNTER 2025-09-05 14:17 | Outpatient (REF) | payer MEDICARE, SELFPAY ==
--- NOTE | ~2025-09-05 | US_ITS ---
EXAMINATION: BILATERAL CAROTID ULTRASOUND WITH DOPPLER HISTORY: I65.21 - Occlusion and stenosis of right carotid artery COMPARISON: Comparison is made with the prior examination dated 03/19/2025. TECHNIQUE: Real time and Color and Spectral doppler ultrasonography of the carotid and vertebral arteries was performed in multiple planes. FINDINGS: There is a small amount of plaque bilaterally. Incidental note is made of an occasional arrhythmia. There is a 10 mm left thyroid nodule. VERTEBRAL FLOW DIRECTION: Antegrade bilaterally. PEAK SYSTOLIC VELOCITIES (in cm/sec): RIGHT: CCA: Prox: 91.9 Dist: 89.5 ICA: Prox: 108 Mid: 125 Dist: 108 ICA/CCA Ratio: 1.2 ECA: 199 Peak ICA end diastolic velocity (EDV): 55.2 LEFT: CCA: Prox: 113 Dist: 96.7 ICA: Prox: 92.5 Mid: 103 Dist: 92.5 ICA/CCA Ratio: 0.8 ECA: 123 Peak ICA end diastolic velocity (EDV): 35.0 US/US carotid duplex BI IMPRESSION: 1. Findings consistent with 0-49% stenosis of the bilateral internal carotid arteries. 2. An intermittent arrhythmia is noted. Correlation with EKG is suggested. 3. 10 mm left thyroid nodule. Electronically signed by: Jonathan Maguire MD 09/05/2025 03:15 PM EDT
--- OUTSIDE RECORDS SUMMARY | 2025-09-05 17:58 | XMS_ITS | Clinical Summary ---
Author Organization [employer] Address [address] [place] [address] Care Team Providers Care Optical Glass Silverer Name Role Phone Unavailable Primary Care Provider [...] to complete this topic Insurance [facility] [place] [id number]
== END 2025-09-05 14:18 | disposition home or self-care (01) ==
LOC: HO.US 14:17
PROVIDERS: PCP Nurse Practitioner Family; Visit Provider Surgery Vascular Surgery
DX: I65.21 Occlusion and stenosis of right carotid artery (principal)
CPT/HCPCS: 93880

== ENCOUNTER → 2025-09-05 14:24 | Outpatient (BNV) | payer MEDICARE, SELFPAY | PROVIDERS: PCP Nurse Practitioner Family; Visit Provider Radiology Diagnostic Radiology | DX: I65.21 Occlusion and stenosis of right carotid artery (principal); E04.1 Nontoxic single thyroid nodule | CPT/HCPCS: 93880 ==

== ENCOUNTER 2025-09-17 10:40 | Outpatient (REF) | payer MEDICARE, SELFPAY ==
--- NOTE | ~2025-09-17 | MM_ITS ---
EXAMINATION: DXA BONE DENSITY AXIAL HISTORY: M85.80 TECHNIQUE: [employer] Dual energy absorptiometry (DEXA) of the lumbar spine, total left hip, and femoral neck was performed. COMPARISON: Comparison is made with the prior examination dated 09/13/2023. FINDINGS: The bone mineral density of the lumbar spine is 1.020 g/cm2, corresponding to a T-score of -1.2, and a Z-score of 0.5. This is indicative of osteopenia. This represents a BMD change of 4.0% compared to the prior exam. This is statistically significant. The bone mineral density of the left total hip is 0.854 g/cm2, corresponding to a T-score of -1.2, and a Z-score of 0.1. This is indicative of osteopenia. This represents a BMD change of 3.6% compared to the prior exam. This is not statistically significant. The bone mineral density of the left femoral neck is 0.756 g/cm2, corresponding to a T-score of -2.0, and a Z-score of -0.5. This is indicative of osteopenia. This represents a BMD change of -2.7% compared to the prior exam. FRACTURE RISK: The FRAX index suggests a ten year probability of major osteoporotic fracture of 11.6%, and of hip fracture 3.0%. MM/XR DEXA axial skeleton IMPRESSION: Based on bone mineral density, and according to World Health Organization (WHO) criteria, the diagnosis is consistent with osteopenia. Statistically, 68% of repeat scans fall within 1 SD (+/- 0.010 g/cm2 for AP spine L1-L4) and 1 SD (+/- 0.012 g/cm2 for femur total) FRAX is a trademark of the [employer]'s [employer] for Metabolic Bone Disease, a World Health Organization (WHO) Collaborating Center. Electronically signed by: Jonathan Maguire MD 09/17/2025 11:13 AM EDT
--- OUTSIDE RECORDS SUMMARY | 2025-09-17 13:28 | XMS_ITS | Clinical Summary ---
Author Organization [employer] Address [address] [place] [address] Care Team Providers Care Office Correspondent Name Role Phone Unavailable Primary Care Provider [...] patient's age to complete this topic Insurance [facility] [place] [id number]
== END 2025-09-17 10:41 | disposition home or self-care (01) ==
LOC: HO.MAMMO 10:40
PROVIDERS: PCP Nurse Practitioner Family; Visit Provider Internal Medicine Rheumatology
DX: Z13.820 Encounter for screening for osteoporosis (principal); M85.89 Other specified disorders of bone density and structure, multiple sites
CPT/HCPCS: 77080

== ENCOUNTER → 2025-09-17 11:00 | Outpatient (BNV) | payer MEDICARE, SELFPAY | PROVIDERS: PCP Nurse Practitioner Family; Visit Provider Radiology Diagnostic Radiology | DX: E28.39 Other primary ovarian failure (principal) | CPT/HCPCS: 77080 ==

== ENCOUNTER 2025-10-10 08:58 | Outpatient (AMB) | payer MEDICARE, SELFPAY ==
--- NOTE | 2025-10-10 09:24 | A.OFFVIS_ITS ---
Vital Signs 10/10/25 09:25 10/10/25 09:29 Height 5 ft 2 in Weight 130 lb BMI 23.8 BP 118/78 110/74 Blood Pressure Location Rt brachial Lt brachial Position Sitting Sitting Intake Visit Reasons: 3 mo follow up carotid US 09/05/25 Intake Note: 3 mo follow up carotid US 09/05/25 s/p Right CEA 05/20/25 Healthcare Network Consultant Required: No Accompanied by: Self / Same As Patient Allergies No Known Allergies (No Known Allergies*) Allergy (Verified 10/10/25 09:27) HPI HPI 3 mo follow up carotid US 09/05/25: Details: The patient is a 65-year-old female presenting for follow-up after right carotid endarterectomy. The procedure was performed on May 20, 2025, and the postoperative course was uneventful. The patient reports feeling well and has resumed normal activities, including driving and showering. The surgical site has healed nicely, although the patient experiences slight numbness, which is expected to improve over time. She is now for three-month carotid surveillance follow-up. [facility] Medical History Postmenopausal Microhematuria Osteopenia Bilateral carotid artery stenosis Diabetes Nicotine dependence, cigarettes, uncomplicated Elevated cholesterol HTN (hypertension) Hx of fracture of leg Surgical History History of tubal ligation History of cystoscopy History of right-sided carotid endarterectomy Social History Household Members: Spouse Housing: Apartment Are you a primary home care administrator to a significant other at home: Yes Do you presently have visiting nurse or other home services: No Alcohol intake: current Alcohol intake frequency: holidays/special occasions only Patient Tobacco Use Status: Current everyday Tobacco user Tobacco use type: Cigarette Cigarette Packs Per Day: 0.5 Cigarettes Per Day: 12 Years Smoked: 40 e-Cigarette/Vaping Use: Currently Using Second Hand Smoke Exposure: Yes service: No Current occupational status: retired Sexual orientation: Straight/Heterosexual Gender identity: Female Cognitive needs: No Hearing needs: No Vision needs: No Review of Systems Const All systems reviewed & are unremarkable except as noted in HPI and below Reports no additional complaints ENT Reports Normal hearing present Card Denies chest pain, Denies chest pain at rest, Denies chest pain with activity and Denies pedal edema Resp Denies cough GI Denies abdominal pain Musc Denies abnormal gait, Denies muscle cramps and Denies radiating pain into limb Skin/Breast Denies skin ulcer and Denies wounds Neuro Reports Normal hearing present and Denies abnormal gait Psych Reports no additional complaints Physical Exam Vital Signs: Last Vital Signs BP 110/74 10/10/25 09:29 BMI result Body Mass Index 23.8 Const General: cooperative, healthy appearing and comfortable Orientation/consciousness: oriented to person, oriented to place and oriented to time HEENT Head: Yes normal to inspection Neck Neck: Yes normal visual inspection Carotids: no bruits Chest Chest palpation & inspection: normal inspection of the chest Resp Effort & Inspection: normal respiratory effort and able to speak in complete sentences Auscultation: clear to auscultation bilaterally, no crackles, no rales, no rhonchi and no wheezes Cardio Rate: regular rate Rhythm: regular rhythm Heart sounds: S1 normal heart sound present and S2 normal heart sound present Bruits: no carotid bruits Peripheral pulses: Peripheral pulses 2+ throughout GI Inspection: Yes normal to inspection Skin Wounds: no wounds Hair: normal Neuro General: oriented to person, oriented to place and oriented to time Cranial nerves: Yes CN's II-XII intact bilaterally and Yes Normal hearing present Cognition (Neuro): normal cognition Motor exam (neuro): 5/5 motor strength present throughout Extrem Other: venous exam: No significant superficial varicosities or spider telangiectasias, minimal edema General: No clubbing, No cyanosis and No edema Psych Appearance: grossly normal Mental Status: mental status grossly normal Speech and movement: Normal speech and movement present Results Reviewed Results Reviewed: Carotid ultrasound dated 09/05/2025 demonstrates bilateral 0-49% stenosis. Written report and images were reviewed. Assessment & Plan Assessment & Plan (1) Bilateral carotid artery stenosis: Comment: 05/20/2025 right carotid endarterectomy Code(s): I65.23 - Occlusion and stenosis of bilateral carotid arteries Category: Medical Plan: In short patient is stable status post right carotid endarterectomy. We have reviewed signs and symptoms of a stroke. We also discussed risk factor modification inclusive a healthy diet low in cholesterol. The patient will follow up with us with surveillance ultrasound of the carotids six-month. Should there be any changes or signs or symptoms of a stroke we will be happy to see them back sooner. Thank you for allowing us to participate in this patient's care. If there are any questions or concerns please do not hesitate to contact us. Orders: Orders US carotid duplex BI 6 Months I65.23 - Occlusion and stenosis of bilateral carotid arteries Coding Level of Care Code Est Pt Level 4 (87179) Diagnoses Bilateral carotid artery stenosis I65.23
[2025-10-10 09:25] VITALS: BP 118/78; BMI 23.8
[2025-10-10 09:29] VITALS: BP 110/74
--- OUTSIDE RECORDS SUMMARY | 2025-10-10 10:52 | XMS_ITS | Clinical Summary ---
Author Organization [employer] Address [address] [place] [address] Care Team Providers Care Hearth Feeder Name Role Phone Unavailable Primary Care Provider [...] of 2) 2010 COVID-19 Vaccine ( - 2024-2 6 season) 2025 Influenza Vaccine (#1) 2025 RSV [...] patient's age to complete this topic Insurance [facility] [place] [id number]
== END 2025-10-10 09:40 | disposition home or self-care (01) ==
LOC: HO.HVS 08:59
PROVIDERS: PCP Nurse Practitioner Family; Visit Provider Surgery Vascular Surgery
DX: I65.23 Occlusion and stenosis of bilateral carotid arteries (principal)
CPT/HCPCS: 99214

== ENCOUNTER → 2025-10-10 | Outpatient (BNVA) | payer MEDICARE, SELFPAY | PROVIDERS: PCP Nurse Practitioner Family; Visit Provider Surgery Vascular Surgery | DX: I65.23 Occlusion and stenosis of bilateral carotid arteries (principal) | CPT/HCPCS: 99212 ==